=== PATIENT | female | born 1975 | race Caucasian/White ===

== ENCOUNTER 2016-09-28 13:56 | Emergency (ER) | payer OTHER ==
[2016-09-28] MEDS ORDERED: NORMAL SALINE 1000 ML 1,000 ML IV ONE (14:53)
[2016-09-28] MEDS ORDERED: ONDANSETRON HCL INJ/PF 4 MG/2 ML SDV IV ONE (14:54)
--- NOTE | 2016-09-28 14:58 | ER Document Report ---
ED Medical Screen (RME) - General Chief Complaint: Chest Pain Stated Complaint: CHEST PAIN Mode of Arrival: Wheelchair Information source: Patient Notes: Patient is a 40 year old female with a history of A-fib who presents to the ED with complaints of fatigue, dizziness, falls x2, decreased appetite and oral intake, nausea and blurred vision. Patient initially thought her symptoms were due to menopause but they are worsening. Patient is not on any blood thinners. Patient denies any vomiting or any new medication. Patient states she had surgery a couple months ago to remove her ovaries. Patient is also SOB. TRAVEL OUTSIDE OF THE [place] IN LAST 30 DAYS: No - Related Data Allergies/Adverse Reactions: aspirin [Aspirin] Allergy (Severe, Verified 09/28/16 14:16) throat closes morphine [Morphine] Allergy (Severe, Verified 09/28/16 14:16) heart races, cannot breath nitrofurantoin [From Macrobid] Allergy (Verified 09/28/16 14:45) meperidine HCl [From Demerol] Adverse Reaction (Intermediate, Verified 09/28/16 14:16) nausea, vomiting ibuprofen [Ibuprofen] Adverse Reaction (Mild, Verified 09/28/16 14:16) rash Penicillins Adverse Reaction (Mild, Verified 09/28/16 14:16) Hives flu vaccine Adverse Reaction (Intermediate, Uncoded 09/28/16 14:16) made really sick Past Medical History - General Information source: Patient - Social History Frequency of alcohol use: None Drug Abuse: None - Past Medical History Cardiac Medical History: Reports: Hx Atrial Fibrillation - Chronic, Hx Hypertension Denies: Hx Coronary Artery Disease, Hx Heart Attack Pulmonary Medical History: Denies: Hx Asthma, Hx Bronchitis, Hx COPD, Hx Pneumonia Neurological Medical History: Denies: Hx Cerebrovascular Accident, Hx Seizures Endocrine Medical History: Reports: Hx Diabetes Mellitus Type 2 - diet controlled Renal/ Medical History: Denies: Hx Peritoneal Dialysis Musculoskeltal Medical History: Reports Hx Arthritis - Bilateral knees Past Surgical History: Reports: Hx Dilation and Curettage, Hx Hysterectomy - PARTIAL, Hx Oral Surgery - wisdom teeth, Hx Orthopedic Surgery - left elbow and wrist. Denies: Hx Pacemaker - Immunizations Hx Diphtheria, Pertussis, Tetanus Vaccination: Yes Review of Systems - Review of Systems Constitutional: See HPI, Malaise EENT: See HPI, Blurred vision Cardiovascular: See HPI, Dizziness Respiratory: See HPI, Short of breath Gastrointestinal: See HPI, Nausea, Poor appetite, Poor fluid intake. denies: Vomiting Genitourinary: No symptoms reported Female Genitourinary: No symptoms reported Musculoskeletal: No symptoms reported Skin: No symptoms reported Hematologic/Lymphatic: No symptoms reported Neurological/Psychological: No symptoms reported Physical Exam - Vital signs Vitals: Temp Pulse Resp BP Pulse Ox 98.6 F 96 20 128/79 H 100 09/28/16 14:16 09/28/16 14:16 09/28/16 14:16 09/28/16 14:16 09/28/16 14:16 - General In distress: None - HEENT Mucous membranes: Dry - Respiratory Respiratory status: No respiratory distress Breath sounds: Normal - Cardiovascular Rhythm: Irregularly irregular Heart sounds: Normal auscultation Murmur: No - Neurological Neuro grossly intact: Yes Course - Vital Signs Vital signs: Temp Pulse Resp BP Pulse Ox 98.6 F 96 20 128/79 H 100 09/28/16 14:16 09/28/16 14:16 09/28/16 14:16 09/28/16 14:16 09/28/16 14:16 Scribe Documentation - Scribe Written by Scribe:: lucille Todd, 09/28/2016, [id number] acting as scribe for :: John
[2016-09-28 15:39] LABS: ABSOLUTE BASOPHILS # (AUTO) 0.1 10^3/uL (0.0-0.2); ABSOLUTE EOSINOPHILS # (AUTO) 0.2 10^3/uL (0.0-0.6); ABSOLUTE LYMPHOCYTES (AUTO) 1.7 10^3/uL (0.5-4.7); ABSOLUTE MONOCYTES (AUTO) 0.7 10^3/uL (0.1-1.4); ABSOLUTE NEUT (AUTO) 5.3 10^3/uL (1.7-8.2); BASOPHILS % (AUTO) 1.2 % (0-2); EOSINOPHILS % (AUTO) 2.3 % (0-6); HEMATOCRIT 42.7 % (36.0-47.0); HEMOGLOBIN 14.3 g/dL (12.0-15.5); HGB HCT DIFFERENCE 0.2; LYMPHOCYTES % (AUTO) 21.3 % (13-45); MEAN CORPUSCULAR HEMOGLOBIN 28.8 pg (27.0-33.4); MEAN CORPUSCULAR HGB CONC 33.4 g/dL (32.0-36.0); MEAN CORPUSCULAR VOLUME 86 fl (80-97); MONOCYTES % (AUTO) 8.6 % (3-13); RED BLOOD COUNT 4.96 10^6/uL (3.72-5.28); RED CELL DISTRIBUTION WIDTH 13.9 % (11.5-14.0); SEGMENTED NEUTROPHILS % (AUTO) 66.6 % (42-78)
[2016-09-28 15:40] LABS: AMORPHOUS SEDIMENT,URINE TRACE /HPF; APPEARANCE,URINE CLOUDY; BILIRUBIN,URINE NEGATIVE (NEGATIVE); GLUCOSE, URINE NEGATIVE (NEGATIVE); KETONES,URINE NEGATIVE (NEGATIVE); LEUKOCYTE ESTERASE,URINE NEGATIVE (NEGATIVE); NITRITE,URINE NEGATIVE (NEGATIVE); PROTEIN,URINE NEGATIVE (NEGATIVE); URINE SPECIFIC GRAVITY 1.014; UROBILINOGEN,URINE NEGATIVE mg/dL (<2.0)
[2016-09-28 16:00] LABS: ALANINE AMINOTRANSFERASE 51 U/L (9-52); ALBUMIN 4.4 g/dL (3.5-5.0); ALKALINE PHOSPHATASE 96 U/L (38-126); ANION GAP 11 (5-19); ASPARTATE AMINO TRANSFERASE 35 U/L (14-36); BILIRUBIN,DIRECT 0.3 mg/dL (0.0-0.4); BILIRUBIN,TOTAL 0.6 mg/dL (0.2-1.3); BLOOD UREA NITROGEN 12 mg/dL (7-20); CALCIUM 9.7 mg/dL (8.4-10.2); CARBON DIOXIDE 30 mmol/L (22-30); CHLORIDE 102 mmol/L (98-107); CREATININE RESULT 0.86 mg/dL (0.52-1.25); GLUCOSE 90 mg/dL (75-110); MAGNESIUM 2.3 mg/dL (1.6-2.3); POTASSIUM 3.9 mmol/L (3.6-5.0); SODIUM 143.3 mmol/L (137-145); TOTAL PROTEIN 7.5 g/dL (6.3-8.2)
--- NOTE | 2016-09-28 16:33 | RADIOLOGY REPORT (SQ) ---
EXAM DESCRIPTION: CHEST PA/LAT COMPLETED DATE/TIME: 09/28/2016 4:14 pm REASON FOR STUDY: Dyspnea COMPARISON: 03/17/2014 EXAM PARAMETERS: NUMBER OF VIEWS: two views TECHNIQUE: Digital Frontal and Lateral radiographic views of the chest acquired. RADIATION DOSE: NA LIMITATIONS: none FINDINGS: LUNGS AND PLEURA: No opacities, masses or pneumothorax. No pleural effusion. MEDIASTINUM AND HILAR STRUCTURES: No masses or contour abnormalities. HEART AND VASCULAR STRUCTURES: Heart normal size. No evidence for failure. BONES: No acute findings. HARDWARE: None in the chest. OTHER: No other significant finding. IMPRESSION: NO SIGNIFICANT RADIOGRAPHIC FINDING IN THE CHEST. TECHNICAL DOCUMENTATION: JOB ID: [id number] [employer]- All Rights Reserved
--- NOTE | 2016-09-28 17:10 | ER Document Report ---
ED General - General Mode of Arrival: Wheelchair Information source: Patient TRAVEL OUTSIDE OF THE [place] IN LAST 30 DAYS: No <MONROE EVERETT - Last Filed: 09/28/16 18:40> <REECE RODRIGUEZ - Last Filed: 09/29/16 00:49> - General Chief Complaint: Chest Pain Stated Complaint: CHEST PAIN Time Seen by Provider: 09/28/16 14:51 Notes: Patient is a 40-year-old female who presented to the emergency department today with complaints of dizziness with associated syncope x2 yesterday. Patient states she "hit the floor" twice yesterday, both times when standing up. Patient states she has been sleeping for nearly 1 week. Patient states she feels like her heart is racing, she has mild nausea, and a headache. Patient mentions that 1.5 months ago she had both ovaries removed secondary to "cyst and tumors all over them". Patient states she does not know if these were malignant in nature. Patient denies a history of clotting disorders, cough, congestion, abdominal pain, or hitting her head during these syncopal events. ( MONROE EVERETT) - Related Data Allergies/Adverse Reactions: aspirin [Aspirin] Allergy (Severe, Verified 09/28/16 14:16) throat closes morphine [Morphine] Allergy (Severe, Verified 09/28/16 14:16) heart races, cannot breath nitrofurantoin [From Macrobid] Allergy (Verified 09/28/16 14:45) meperidine HCl [From Demerol] Adverse Reaction (Intermediate, Verified 09/28/16 14:16) nausea, vomiting ibuprofen [Ibuprofen] Adverse Reaction (Mild, Verified 09/28/16 14:16) rash Penicillins Adverse Reaction (Mild, Verified 09/28/16 14:16) Hives flu vaccine Adverse Reaction (Intermediate, Uncoded 09/28/16 14:16) made really sick Past Medical History - General Information source: Patient - Social History Smoking Status: Never Smoker Cigarette use (# per day): No Frequency of alcohol use: None Drug Abuse: None Family History: Reviewed & Not Pertinent Patient has suicidal ideation: No Patient has homicidal ideation: No - Past Medical History Cardiac Medical History: Reports: Hx Atrial Fibrillation - Chronic, Hx Hypertension Endocrine Medical History: Reports: Hx Diabetes Mellitus Type 2 - diet controlled Musculoskeltal Medical History: Reports Hx Arthritis - Bilateral knees Past Surgical History: Reports: Hx Dilation and Curettage, Hx Hysterectomy - PARTIAL, Hx Oral Surgery - wisdom teeth, Hx Orthopedic Surgery - left elbow and wrist. Denies: Hx Pacemaker - Immunizations Hx Diphtheria, Pertussis, Tetanus Vaccination: Yes <MONROE EVERETT - Last Filed: 09/28/16 18:40> Review of Systems - Review of Systems Constitutional: No symptoms reported EENT: denies: Nose congestion Cardiovascular: See HPI, Heart racing, Syncope, Dizziness Respiratory: See HPI, Short of breath. denies: Cough Gastrointestinal: See HPI, Nausea. denies: Abdominal pain Genitourinary: No symptoms reported Female Genitourinary: No symptoms reported Musculoskeletal: No symptoms reported Skin: No symptoms reported Hematologic/Lymphatic: No symptoms reported Neurological/Psychological: See HPI, Headaches -: Yes All other systems reviewed and negative <MONROE EVERETT - Last Filed: 09/28/16 18:40> Physical Exam - Vital signs Interpretation: Normal - General General appearance: Appears well, Alert - HEENT Head: Normocephalic, Atraumatic Eyes: Normal Pupils: PERRL - Respiratory Respiratory status: No respiratory distress Chest status: Nontender Breath sounds: Normal Chest palpation: Normal - Cardiovascular Rhythm: Regular Heart sounds: Normal auscultation Murmur: No - Abdominal Inspection: Normal Distension: No distension Bowel sounds: Normal Tenderness: Nontender Organomegaly: No organomegaly - Back Back: Normal, Nontender - Extremities General upper extremity: Normal inspection, Nontender, Normal color, Normal ROM , Normal temperature General lower extremity: Normal inspection, Nontender, Normal color, Normal ROM , Normal temperature, Normal weight bearing. No: Lucy's sign - Neurological Neuro grossly intact: Yes Cognition: Normal Orientation: AAOx4 [place] Coma Scale Eye Opening: Spontaneous [place] Coma Scale Verbal: Oriented [place] Coma Scale Motor: Obeys Commands [place] Coma Scale Total: 15 Speech: Normal Motor strength normal: LUE, RUE, LLE, RLE Sensory: Normal - Psychological Associated symptoms: Normal affect, Normal mood - Skin Skin Temperature: Warm Skin Moisture: Dry Skin Color: Normal <REECE RODRIGUEZ - Last Filed: 09/29/16 00:49> - Vital signs Vitals: Temp Pulse Resp BP Pulse Ox 98.6 F 96 20 128/79 H 100 09/28/16 14:16 09/28/16 14:16 09/28/16 14:16 09/28/16 14:16 09/28/16 14:16 Course - Laboratory Result Diagrams: 09/28/16 15:10 09/28/16 15:10 <MONROE EVERETT - Last Filed: 09/28/16 18:40> - Laboratory Result Diagrams: 09/28/16 15:10 09/28/16 15:10 - Diagnostic Test Radiology reviewed: Reports reviewed <REECE RODRIGUEZ - Last Filed: 09/29/16 00:49> - Re-evaluation Re-evalutation: 09/28/16 19:57 Patient no acute findings on blood work and physical exam. Feels better after fluids and meclizine. Patient is due continue to take p.o. at home. She is to take Antivert 3 times a day. She is to follow-up with her doctor and discuss probable early menopause due to recent oophrectomy. Stable for discharge. Return if any worsening or concerning symptoms. Understands and agrees with plan. (REECE RODRIGUEZ) - Vital Signs Vital signs: Temp Pulse Resp BP Pulse Ox 97.8 F 88 20 128/65 H 98 09/28/16 21:12 09/28/16 21:12 09/28/16 21:12 09/28/16 21:12 09/28/16 21:12 Discharge <MONROE EVERETT - Last Filed: 09/28/16 18:40> <REECE RODRIGUEZ - Last Filed: 09/29/16 00:49> - Discharge Clinical Impression: Vertigo, Near syncope Condition: Stable Disposition: HOME, SELF-CARE Instructions: Vertigo ([facility]), Near Syncopal Episode ([facility]) Additional Instructions: Please follow-up with your [facility]. Please make sure you are drinking plenty of fluids. Please take meclizine 3 times a day for the next 3 days. Prescriptions: Meclizine HCl [Antivert 12.5 mg Tablet] 12.5 mg PO TID #20 tab Scribe Attestation: 09/29/16 00:49 I personally performed the services described in the documentation, reviewed and edited the documentation which was dictated to the scribe in my presence, and it accurately records my words and actions. (REECE RODRIGUEZ) Scribe Documentation - Scribe Written by Aishwarya:: Aishwarya Forbes, 09/28/2016 1919 acting as scribe for :: Edith <MONROE EVERETT - Last Filed: 09/28/16 18:40>
[2016-09-28] MEDS ORDERED: METOCLOPRAMIDE HCL INJ/PF 10 MG/2 ML SDV IV ONE (17:13)
[2016-09-28] MEDS ORDERED: MECLIZINE HCL 25 MG TABLET PO ONE (17:13)
[2016-09-28 21:14] VITALS: BP 128/65
--- NOTE | 2016-09-28 22:52 | EKG REPORT ---
SEVERITY:- ABNORMAL ECG - ATRIAL FIBRILLATION, V-RATE 65-132 BORDERLINE T ABNORMALITIES, ANTERIOR LEADS : Confirmed by: Lise Carl 28-Sep-2016 22:51:21
== END 2016-09-28 21:11 | disposition home or self-care (01) ==
LOC: ER 13:56
DX: R42 Dizziness and giddiness (principal); R55 Syncope and collapse; R07.9 Chest pain, unspecified; R11.0 Nausea; R51 Headache; I48.91 Unspecified atrial fibrillation; I10 Essential (primary) hypertension; E11.9 Type 2 diabetes mellitus without complications; Z88.6 Allergy status to analgesic agent; Z88.0 Allergy status to penicillin; Z88.7 Allergy status to serum and vaccine
CPT/HCPCS: 93005; 99285; 96361; 96374; 96375; 36415; 83735; 84443; 85025; 80053; 81001; 84484; 71020; 93010; J2765; J2405; J7030

== ENCOUNTER 2017-01-05 14:37 | Emergency (ER) | payer OTHER ==
[2017-01-05] MEDS ORDERED: DIPHENHYDRAMINE HCL 50 MG/ML VIAL IV ONE (15:05)
[2017-01-05] MEDS ORDERED: METHYLPREDNISOLONE INJ 125 MG/2 ML SDV IV ONE (15:05)
--- NOTE | 2017-01-05 15:07 | ER Document Report ---
ED Medical Screen (RME) - General Chief Complaint: Allergic Reaction Stated Complaint: POSSIBLE ALLERGIC REACTION Time Seen by Provider: 01/05/17 15:04 Mode of Arrival: Ambulatory Information source: Patient Notes: Patient reports approximate 930 this morning she had some pumpkin seeds. She then reports that she now feels that her bottom lip is swollen her tongue is swollen and she has trouble swallowing. No trouble breathing. She states she has had some similar reactions from other substances. He states she has never had pump and sees before. She states she took Benadryl but she feels like the symptoms have not improved. TRAVEL OUTSIDE OF THE [place] IN LAST 30 DAYS: No - Related Data Allergies/Adverse Reactions: aspirin [Aspirin] Allergy (Severe, Verified 01/05/17 14:44) throat closes morphine [Morphine] Allergy (Severe, Verified 01/05/17 14:44) heart races, cannot breath nitrofurantoin [From Macrobid] Allergy (Verified 01/05/17 14:44) meperidine HCl [From Demerol] Adverse Reaction (Intermediate, Verified 01/05/17 14:44) nausea, vomiting ibuprofen [Ibuprofen] Adverse Reaction (Mild, Verified 01/05/17 14:44) rash Penicillins Adverse Reaction (Mild, Verified 01/05/17 14:44) Hives flu vaccine Adverse Reaction (Intermediate, Uncoded 09/28/16 14:16) made really sick Past Medical History - Past Medical History Cardiac Medical History: Reports: Hx Atrial Fibrillation - Chronic, Hx Hypertension Denies: Hx Coronary Artery Disease, Hx Heart Attack Pulmonary Medical History: Denies: Hx Asthma, Hx Bronchitis, Hx COPD, Hx Pneumonia Neurological Medical History: Denies: Hx Cerebrovascular Accident, Hx Seizures Endocrine Medical History: Reports: Hx Diabetes Mellitus Type 2 - diet controlled Renal/ Medical History: Denies: Hx Peritoneal Dialysis Musculoskeltal Medical History: Reports Hx Arthritis - Bilateral knees Past Surgical History: Reports: Hx Dilation and Curettage, Hx Hysterectomy, Hx Oral Surgery - wisdom teeth, Hx Orthopedic Surgery - left elbow and wrist. Denies: Hx Pacemaker - Immunizations Hx Diphtheria, Pertussis, Tetanus Vaccination: Yes Physical Exam - Vital signs Vitals: Temp Pulse BP Pulse Ox 98.6 F 88 121/96 H 97 01/05/17 14:43 01/05/17 14:43 01/05/17 14:43 01/05/17 14:43 Course - Vital Signs Vital signs: Temp Pulse Resp BP Pulse Ox 98.6 F 88 121/96 H 97 01/05/17 14:43 01/05/17 14:43 01/05/17 14:43 01/05/17 14:43
[2017-01-05] MEDS ORDERED: LORAZEPAM INJ 2 MG/1 ML VIAL IV ONE (16:02)
--- NOTE | 2017-01-05 16:04 | ER Document Report ---
ED Allergic Reaction - General Chief Complaint: Allergic Reaction Stated Complaint: POSSIBLE ALLERGIC REACTION Time Seen by Provider: 01/05/17 15:04 Mode of Arrival: Ambulatory Information source: Patient Notes: Patient states that around 930 this morning she ate a handful of pumpkin seeds and then about 15 minutes later started to have throat discomfort, tongue swelling and painful lips. Patient states she did take some Benadryl at home. Patient denies any respiratory symptoms. Patient states that she feels like her symptoms have stabilized all the have not completely resolved. TRAVEL OUTSIDE OF THE [place] IN LAST 30 DAYS: No - HPI Onset: This morning Onset/Duration: Sudden Quality of pain: Burning Pain Level: 4 Food exposure: Pumpkin seeds Swelling: Lip(s), Tongue Associated symptoms: Other - Patient felt anxious when symptoms started Similar symptoms previously: Yes - Food allergies Recently seen / treated by doctor: No - Related Data Allergies/Adverse Reactions: aspirin [Aspirin] Allergy (Severe, Verified 01/05/17 14:44) throat closes morphine [Morphine] Allergy (Severe, Verified 01/05/17 14:44) heart races, cannot breath nitrofurantoin [From Macrobid] Allergy (Verified 01/05/17 14:44) meperidine HCl [From Demerol] Adverse Reaction (Intermediate, Verified 01/05/17 14:44) nausea, vomiting ibuprofen [Ibuprofen] Adverse Reaction (Mild, Verified 01/05/17 14:44) rash Penicillins Adverse Reaction (Mild, Verified 01/05/17 14:44) Hives flu vaccine Adverse Reaction (Intermediate, Uncoded 09/28/16 14:16) made really sick Past Medical History - General Information source: Patient - Social History Smoking Status: Never Smoker Frequency of alcohol use: None Drug Abuse: None Occupation: [employer] Lives with: Family Family History: Reviewed & Not Pertinent - Past Medical History Cardiac Medical History: Reports: Hx Atrial Fibrillation - Chronic, Hx Hypertension Denies: Hx Coronary Artery Disease, Hx Heart Attack Pulmonary Medical History: Denies: Hx Asthma, Hx Bronchitis, Hx COPD, Hx Pneumonia Neurological Medical History: Denies: Hx Cerebrovascular Accident, Hx Seizures Endocrine Medical History: Reports: Hx Diabetes Mellitus Type 2 - diet controlled Renal/ Medical History: Denies: Hx Peritoneal Dialysis Musculoskeltal Medical History: Reports Hx Arthritis - Bilateral knees Past Surgical History: Reports: Hx Dilation and Curettage, Hx Hysterectomy, Hx Oral Surgery - wisdom teeth, Hx Orthopedic Surgery - left elbow and wrist. Denies: Hx Pacemaker - Immunizations Hx Diphtheria, Pertussis, Tetanus Vaccination: Yes Review of Systems - Review of Systems Constitutional: No symptoms reported. denies: Fever, Recent illness EENT: Other - Tongue swelling, lip pain Cardiovascular: No symptoms reported Respiratory: No symptoms reported. denies: Cough, Short of breath Gastrointestinal: No symptoms reported. denies: Nausea, Vomiting Genitourinary: No symptoms reported Female Genitourinary: No symptoms reported Musculoskeletal: No symptoms reported Skin: No symptoms reported Hematologic/Lymphatic: No symptoms reported Neurological/Psychological: Anxiety Physical Exam - Vital signs Vitals: Temp Pulse BP Pulse Ox 98.6 F 88 121/96 H 97 01/05/17 14:43 01/05/17 14:43 01/05/17 14:43 01/05/17 14:43 - General General appearance: Appears well, Alert, Anxious In distress: None - HEENT Head: Normocephalic, Atraumatic Eyes: Normal Nasal: Normal Mouth/Lips: Normal. No: Angioedema Mucous membranes: Dry - lips Pharynx: Normal. No: Erythema, Exudate, Uvular edema, Potential airway comprom. Neck: Normal, Supple. No: Lymphadenopathy - Respiratory Respiratory status: No respiratory distress Chest status: Nontender Breath sounds: Normal. No: Rales, Rhonchi, Stridor, Wheezing Chest palpation: Normal - Cardiovascular Rhythm: Regular Heart sounds: S1 appreciated, S2 appreciated Murmur: No - Back Back: Normal, Nontender - Extremities General upper extremity: Normal inspection, Normal ROM. No: Edema General lower extremity: Normal inspection, Normal ROM. No: Edema - Neurological Neuro grossly intact: Yes Cognition: Normal Ken Coma Scale Eye Opening: Spontaneous [place] Coma Scale Verbal: Oriented [place] Coma Scale Motor: Obeys Commands [place] Coma Scale Total: 15 - Psychological Associated symptoms: Anxious - Skin Skin Temperature: Warm Skin Moisture: Dry Skin Color: Normal Course - Re-evaluation Re-evalutation: 01/05/17 16:10 Patient with no objective signs of angioedema or potential airway compromise. Patient managing her oral secretions and speaking clearly. 01/05/17 17:13 Patient complains of left-sided sore throat with mild headache and is requesting medicine. Patient without any objective signs of angioedema or airway swelling. 01/05/17 17:[address] Morrissey regarding patient presentation and exam findings. Agrees with plan for discharge at this time. - Vital Signs Vital signs: Temp Pulse Resp BP Pulse Ox 98.2 F 85 117/81 95 01/05/17 17:54 01/05/17 17:54 01/05/17 17:54 01/05/17 17:54 Discharge - Discharge Clinical Impression: Allergic reaction Qualifiers: Encounter type: initial encounter Qualified Code(s): T78.40XA - Allergy, unspecified, initial encounter Condition: Stable Disposition: HOME, SELF-CARE Instructions: Use of Diphenhydramine, Food Allergy ([facility]), Steroid Medication Additional Instructions: Return immediately for any new or worsening symptoms Followup with your primary care provider, call tomorrow to make a followup appointment Avoid pumpkin seeds and all things pumpkin in the future Take Benadryl [id number] every 6 hours to help with her symptoms Take your ranitidine as prescribed to help with her symptoms as well. Prescriptions: Prednisone [Deltasone 20 mg Tablet] 3 tab PO DAILY 4 Days tablet Referrals: JUSTEN PHOENIX PA-C [NO LOCAL MD] - Follow up tomorrow
[2017-01-05] MEDS ORDERED: ACETAMINOPHEN 325 MG TABLET PO ONE (17:13)
[2017-01-05 18:05] VITALS: BP 117/81
== END 2017-01-05 18:00 | disposition home or self-care (01) ==
LOC: ER 14:37
DX: T78.40XA Allergy, unspecified, initial encounter (principal); R09.89 Other specified symptoms and signs involving the circulatory and respiratory systems; R22.0 Localized swelling, mass and lump, head; R19.8 Other specified symptoms and signs involving the digestive system and abdomen; X58.XXXA Exposure to other specified factors, initial encounter; J02.9 Acute pharyngitis, unspecified; R51 Headache; E11.9 Type 2 diabetes mellitus without complications; I10 Essential (primary) hypertension; Z88.6 Allergy status to analgesic agent; Z88.5 Allergy status to narcotic agent; Z88.1 Allergy status to other antibiotic agents
CPT/HCPCS: 99283; 96374; 96375; J1200; J2930

== ENCOUNTER 2017-04-27 18:01 | Emergency (ER) | payer OTHER ==
--- NOTE | 2017-04-27 18:39 | ER Document Report ---
ED Medical Screen (RME) - General Chief Complaint: Dizziness Stated Complaint: DIZZINESS Time Seen by Provider: 04/27/17 18:18 TRAVEL OUTSIDE OF THE [place] IN LAST 30 DAYS: No - HPI Notes: 04/27/17 18:30 Patient is a 41-year-old female with a history of type 2 diabetes, A. fib, chronic sciatica right side, and obesity who presents to the ED complaining of an episode of feeling her heart race, dizziness, and nausea/vomiting. Patient had a cardiac ablation 3 weeks ago and was taken off of her blood thinners 4 days ago. Patient states that she has not had any issues since her ablation. Patient states that she usually has help when she tries to get up from a seated position due to the sciatic pain, but she did not have any help so she tried to do it on her own. Patient states that when she did she developed a very sharp pain that traveled down to her foot which is the same pathway as her typical sciatica. Patient states that she sat back down and then began to have palpitations with nausea. Patient states that she ran to the bathroom and threw up. Patient states that since then she has felt some shortness of breath and has continued nausea and feeling of fast heartbeat. Patient also states that she had a very stressful day at work and may have component of anxiety. Denies any headache, fever, neck pain, URI, sore throat, chest pain, syncope, cough, wheeze, dyspnea, abdominal pain, nausea/vomiting/diarrhea, urinary retention, dysuria, hematuria, loss of control of bowel or bladder, numbness/ tingling, saddle anesthesia, muscle paralysis/weakness, or rash. No prev ID, DVT, or PE. Non-smoker. no IV drug use. No hormone replacement, prolonged travel, or CA. I have treated and performed a rapid initial assessment of this patient. A comprehensive ED assessment and evaluation of the patient, analysis of test results and completion of medical decision making process will be conducted by additional ED providers. PHYSICAL EXAMINATION: GENERAL: Well-appearing, well-nourished and in no acute distress. A&Ox4. Answers questions appropriately. LUNGS: Breath sounds clear to auscultation bilaterally and equal. No wheezes rales or rhonchi. HEART: Regular rate and rhythm without murmurs, rubs, gallops. HR 96 on exam. Extremities: No cyanosis, clubbing, or edema b/l. Calves soft, non-tender b/l NEUROLOGICAL: Normal speech, normal gait. PSYCH: anxious - Related Data Allergies/Adverse Reactions: aspirin [Aspirin] Allergy (Severe, Verified 04/27/17 18:19) throat closes morphine [Morphine] Allergy (Severe, Verified 04/27/17 18:19) heart races, cannot breath nitrofurantoin [From Macrobid] Allergy (Verified 04/27/17 18:19) meperidine HCl [From Demerol] Adverse Reaction (Intermediate, Verified 04/27/17 18:19) nausea, vomiting ibuprofen [Ibuprofen] Adverse Reaction (Mild, Verified 04/27/17 18:19) rash Penicillins Adverse Reaction (Mild, Verified 04/27/17 18:19) Hives flu vaccine Adverse Reaction (Intermediate, Uncoded 04/27/17 18:19) made really sick Past Medical History - Social History Chew tobacco use (# tins/day): No Frequency of alcohol use: None Drug Abuse: None - Past Medical History Cardiac Medical History: Reports: Hx Atrial Fibrillation - Chronic, Hx Hypertension Denies: Hx Coronary Artery Disease, Hx Heart Attack Pulmonary Medical History: Denies: Hx Asthma, Hx Bronchitis, Hx COPD, Hx Pneumonia Neurological Medical History: Denies: Hx Cerebrovascular Accident, Hx Seizures Endocrine Medical History: Reports: Hx Diabetes Mellitus Type 2 - diet controlled Renal/ Medical History: Denies: Hx Peritoneal Dialysis Musculoskeltal Medical History: Reports Hx Arthritis - Bilateral knees Past Surgical History: Reports: Hx Dilation and Curettage, Hx Hysterectomy, Hx Oral Surgery - wisdom teeth, Hx Orthopedic Surgery - left elbow and wrist. Denies: Hx Pacemaker - Immunizations Hx Diphtheria, Pertussis, Tetanus Vaccination: Yes Physical Exam - Vital signs Vitals: Temp Pulse Resp BP Pulse Ox 98.8 F 95 16 133/84 H 97 04/27/17 18:14 04/27/17 18:14 04/27/17 18:14 04/27/17 18:14 04/27/17 18:14 Course - Vital Signs Vital signs: Temp Pulse Resp BP Pulse Ox 98.8 F 95 16 133/84 H 97 04/27/17 18:14 04/27/17 18:14 04/27/17 18:14 04/27/17 18:14 04/27/17 18:14
--- NOTE | 2017-04-27 19:04 | RADIOLOGY REPORT (SQ) ---
EXAM DESCRIPTION: CHEST PA/LAT COMPLETED DATE/TIME: 04/27/2017 6:57 pm REASON FOR STUDY: sob COMPARISON: 09/28/2016 NUMBER OF VIEWS: Two view. TECHNIQUE: Frontal and lateral radiographic views of the chest acquired. LIMITATIONS: None. FINDINGS: LUNGS AND PLEURA: No opacities, masses or pneumothorax. No pleural effusion. MEDIASTINUM AND HILAR STRUCTURES: No masses or contour abnormalities. HEART AND VASCULATURE: Heart normal size. No evidence for failure. BONY STRUCTURES: No acute findings. HARDWARE: None. OTHER: No other significant finding. IMPRESSION: NO SIGNIFICANT RADIOGRAPHIC FINDING IN THE CHEST. TECHNICAL DOCUMENTATION: JOB ID: [id number]- All Rights Reserved
[2017-04-27 19:13] LABS: ABSOLUTE BASOPHILS # (AUTO) 0.1 10^3/uL (0.0-0.2); ABSOLUTE EOSINOPHILS # (AUTO) 0.1 10^3/uL (0.0-0.6); ABSOLUTE LYMPHOCYTES (AUTO) 1.4 10^3/uL (0.5-4.7); ABSOLUTE MONOCYTES (AUTO) 0.6 10^3/uL (0.1-1.4); EOSINOPHILS % (AUTO) 1.8 % (0-6); HEMATOCRIT 38.8 % (36.0-47.0); HEMOGLOBIN 13.3 g/dL (12.0-15.5); LYMPHOCYTES % (AUTO) 16.7 % (13-45); MEAN CORPUSCULAR HEMOGLOBIN 29.6 pg (27.0-33.4); MEAN CORPUSCULAR HGB CONC 34.3 g/dL (32.0-36.0); MEAN CORPUSCULAR VOLUME 86 fl (80-97); MONOCYTES % (AUTO) 7.1 % (3-13); PLATELET COUNT 212 10^3/uL (150-450); RED BLOOD COUNT 4.51 10^6/uL (3.72-5.28); RED CELL DISTRIBUTION WIDTH 13.6 % (11.5-14.0); SEGMENTED NEUTROPHILS % (AUTO) 73.4 % (42-78); TOTAL CELLS COUNTED % (AUTO) 100 %; WHITE BLOOD COUNT 8.2 10^3/uL (4.0-10.5)
[2017-04-27 19:31] LABS: ALANINE AMINOTRANSFERASE 55 U/L (9-52); ALBUMIN 4.7 g/dL (3.5-5.0); ALKALINE PHOSPHATASE 76 U/L (38-126); ANION GAP 10 (5-19); ASPARTATE AMINO TRANSFERASE 37 U/L (14-36); BILIRUBIN,DIRECT 0.1 mg/dL (0.0-0.4); BILIRUBIN,TOTAL 0.5 mg/dL (0.2-1.3); BLOOD UREA NITROGEN 12 mg/dL (7-20); CALCIUM 9.8 mg/dL (8.4-10.2); CARBON DIOXIDE 30 mmol/L (22-30); CHLORIDE 100 mmol/L (98-107); GLUCOSE 107 mg/dL (75-110); POTASSIUM 3.5 mmol/L (3.6-5.0); SODIUM 140.3 mmol/L (137-145); TOTAL PROTEIN 7.1 g/dL (6.3-8.2)
[2017-04-27] MEDS ORDERED: ONDANSETRON HCL INJ/PF 4 MG/2 ML SDV IV ONE (20:04)
[2017-04-27] MEDS ORDERED: HYDROMORPHONE HCL INJ/PF 2 MG/ML AMPULE IV ONE (20:23)
--- NOTE | 2017-04-27 21:14 | ER Document Report ---
ED General - General Chief Complaint: Dizziness Stated Complaint: DIZZINESS Time Seen by Provider: 04/27/17 18:18 Mode of Arrival: Ambulatory Information source: Patient Notes: 41 yr old female hx of sciatica presents with complaints of sudden sharp pain radiating the right buttocks to her back causing her nausea and vomiting as well as dizziness. Patient noted the pain radiated all throughout her body including her chest, however she denies any actual chest pain. Patient has a history of sciatic pain and receives injections for it but has not received an injection recently is supposed to have one in a few weeks TRAVEL OUTSIDE OF THE [place] IN LAST 30 DAYS: No - HPI Onset: Just prior to arrival Onset/Duration: Sudden Quality of pain: Sharp, Stabbing Severity: Moderate Pain Level: 2 Associated symptoms: Nausea, Vomiting Exacerbated by: Movement, Walking Relieved by: Denies Similar symptoms previously: Yes Recently seen / treated by doctor: Yes - Related Data Allergies/Adverse Reactions: aspirin [Aspirin] Allergy (Severe, Verified 18 18:19) throat closes morphine [Morphine] Allergy (Severe, Verified 04/27/17 18:19) heart races, cannot breath nitrofurantoin [From Macrobid] Allergy (Verified 04/27/17 18:19) meperidine HCl [From Demerol] Adverse Reaction (Intermediate, Verified 04/27/17 18:19) nausea, vomiting ibuprofen [Ibuprofen] Adverse Reaction (Mild, Verified 18 18:19) rash Penicillins Adverse Reaction (Mild, Verified 18 18:19) Hives flu vaccine Adverse Reaction (Intermediate, Uncoded 04/27/17 18:19) made really sick Past Medical History - Social History Smoking Status: Never Smoker Cigarette use (# per day): No Chew tobacco use (# tins/day): No Smoking Education Provided: No Frequency of alcohol use: None Drug Abuse: None Family History: Reviewed & Not Pertinent Patient has suicidal ideation: No Patient has homicidal ideation: No - Past Medical History Cardiac Medical History: Reports: Hx Atrial Fibrillation - Chronic, Hx Hypertension Denies: Hx Coronary Artery Disease, Hx Heart Attack Pulmonary Medical History: Denies: Hx Asthma, Hx Bronchitis, Hx COPD, Hx Pneumonia Neurological Medical History: Denies: Hx Cerebrovascular Accident, Hx Seizures Endocrine Medical History: Reports: Hx Diabetes Mellitus Type 2 - diet controlled Renal/ Medical History: Denies: Hx Peritoneal Dialysis Musculoskeltal Medical History: Reports Hx Arthritis - Bilateral knees Past Surgical History: Reports: Hx Dilation and Curettage, Hx Hysterectomy, Hx Oral Surgery - wisdom teeth, Hx Orthopedic Surgery - left elbow and wrist. Denies: Hx Pacemaker - Immunizations Hx Diphtheria, Pertussis, Tetanus Vaccination: Yes Review of Systems - Review of Systems Notes: REVIEW OF SYSTEMS: CONSTITUTIONAL : Denies fever, chills, or sweats. Denies recent illness. EENT: Denies eye, ear, throat, or mouth pain or symptoms. Denies nasal or sinus congestion or discharge. Denies throat, tongue, or mouth swelling or difficulty swallowing. CARDIOVASCULAR: Denies chest pain. Denies palpitations or racing or irregular heart beat. Denies ankle edema. RESPIRATORY: Denies cough, cold, or chest congestion. Denies shortness of breath, difficulty breathing, or wheezing. GASTROINTESTINAL: Admits to nausea vomiting GENITOURINARY: Denies difficulty urinating, painful urination, burning, frequency, blood in urine, or discharge. FEMALE GENITOURINARY: Denies vaginal bleeding, heavy or abnormal periods, irregular periods. Denies vaginal discharge or odor. MUSCULOSKELETAL: Admits to right buttocks sciatic pain radiating to her back SKIN: Denies rash, lesions or sores. HEMATOLOGIC : Denies easy bruising or bleeding. LYMPHATIC: Denies swollen, enlarged glands. NEUROLOGICAL: Denies confusion or altered mental status. Denies passing out or loss of consciousness. Denies dizziness or lightheadedness. Denies headache. Denies weakness or paralysis or loss of use of either side. Denies problems with gait or speech. Denies sensory loss, numbness, or tingling. Denies seizures. PSYCHIATRIC: Denies anxiety or stress. Denies depression, suicidal ideation, or homicidal ideation. ALL OTHER SYSTEMS REVIEWED AND NEGATIVE. PHYSICAL EXAMINATION: GENERAL: Well-appearing, well-nourished and in no acute distress. HEAD: Atraumatic, normocephalic. EYES: Pupils equal round and reactive to light, extraocular movements intact, conjunctiva are normal. ENT: Nares patent, oropharynx clear without exudates. Moist mucous membranes. NECK: Normal range of motion, supple without lymphadenopathy LUNGS: Breath sounds clear to auscultation bilaterally and equal. No wheezes rales or rhonchi. HEART: Regular rate and rhythm without murmurs ABDOMEN: Soft, nontender, nondistended abdomen. No guarding, no rebound. No masses appreciated. Female : deferred Musculoskeletal: Normal range of motion, no pitting or edema. No cyanosis. Reproducible sciatic pain NEUROLOGICAL: Cranial nerves grossly intact. Normal speech, normal gait. Normal sensory, motor exams PSYCH: Normal mood, normal affect. SKIN: Warm, Dry, normal turgor, no rashes or lesions noted. Dictation was performed using [employer] voice recognition software Physical Exam - Vital signs Vitals: Temp Pulse Resp BP Pulse Ox 98.8 F 95 16 133/84 H 97 04/27/17 18:14 04/27/17 18:14 04/27/17 18:14 04/27/17 18:14 04/27/17 18:14 Course - Re-evaluation Re-evalutation: 04/27/17 23:47 Patient's presentation is consistent with sciatica, she notes when she has pain like this she gets nauseous and vomits. She has no fevers or chills cardiac enzymes are negative lab work otherwise was quite benign. Patient was given pain control nausea control notes symptoms have improved significantly. I will discharge home to follow-up with [facility] for her sciatic pain and injections After performing a Medical Screening Examination, I estimate there is LOW risk for RUPTURED ESOPHAGUS, PNEUMOTHORAX, PULMONARY EMBOLISM, ACUTE CORONARY SYNDROME, OR THORACIC AORTIC DISSECTION, thus I consider the discharge disposition reasonable. I have reevaluated this patient multiple times and no significant life threatening changes are noted. The patient and I have discussed the diagnosis and risks, and we agree with discharging home with close follow-up. We also discussed returning to the Emergency Department immediately if new or worsening symptoms occur. We have discussed the symptoms which are most concerning (e.g., bloody sputum, worsening pain or shortness of breath) that necessitate immediate return. - Vital Signs Vital signs: Temp Pulse Resp BP Pulse Ox 98.3 F 95 17 134/90 H 94 04/27/17 21:50 04/27/17 18:14 04/27/17 21:50 04/27/17 21:50 04/27/17 21:50 - Laboratory Result Diagrams: 04/27/17 19:00 04/27/17 19:00 Laboratory results interpreted by me: 04/27/17 19:00 Potassium 3.5 L AST 37 H ALT 55 H - EKG Interpretation by De EKG shows normal: Sinus rhythm, Intervals, QRS Complexes, ST-T Waves Discharge - Discharge Clinical Impression: Sciatic leg pain Nausea & vomiting Qualifiers: Vomiting type: unspecified Vomiting Intractability: non-intractable Qualified Code(s): R11.2 - Nausea with vomiting, unspecified Hypertension Qualifiers: Hypertension type: essential hypertension Qualified Code(s): I10 - Essential ( primary) hypertension Condition: Stable Disposition: HOME, SELF-CARE Instructions: Sciatica ([facility]) Prescriptions: Hydrocodone/Acetaminophen [Stinnett 5-325 mg Tablet] 1 tab PO Q6 #10 tablet Metoclopramide HCl [Reglan 10 mg Tablet] 1 - 2 tab PO Q6 #10 tablet Referrals: JUSTEN PHOENIX PA-C [Primary Care Provider] - Follow up tomorrow
[2017-04-27 21:25] LABS: CREATINE KINASE MB < 0.22 ng/mL (<4.55); TROPONIN I < 0.012 ng/mL
[2017-04-27 22:03] VITALS: BP 134/90
--- NOTE | 2017-04-28 09:39 | EKG REPORT ---
SEVERITY:- BORDERLINE ECG - SINUS RHYTHM BORDERLINE T ABNORMALITIES, DIFFUSE LEADS : Confirmed by: Lise Carl 28-Apr-2017 09:38:36
== END 2017-04-27 22:03 | disposition home or self-care (01) ==
LOC: ER 18:01
DX: M54.31 Sciatica, right side (principal); I10 Essential (primary) hypertension; E11.9 Type 2 diabetes mellitus without complications; R42 Dizziness and giddiness; R11.2 Nausea with vomiting, unspecified; Z88.6 Allergy status to analgesic agent; Z88.5 Allergy status to narcotic agent; Z88.1 Allergy status to other antibiotic agents
CPT/HCPCS: 93005; 99284; 96374; 96375; 36415; 82553; 82550; 85025; 80053; 84484; 71046; 93010; J1170; J2405

== ENCOUNTER 2017-09-04 21:28 | Emergency (ER) | payer OTHER ==
[2017-09-04 23:48] LABS: ABSOLUTE EOSINOPHILS # (AUTO) 0.2 10^3/uL (0.0-0.6); ABSOLUTE LYMPHOCYTES (AUTO) 2.2 10^3/uL (0.5-4.7); ABSOLUTE MONOCYTES (AUTO) 0.6 10^3/uL (0.1-1.4); BASOPHILS % (AUTO) 0.2 % (0-2); EOSINOPHILS % (AUTO) 3.1 % (0-6); HEMATOCRIT 39.4 % (36.0-47.0); HEMOGLOBIN 13.4 g/dL (12.0-15.5); LYMPHOCYTES % (AUTO) 31.1 % (13-45); MEAN CORPUSCULAR HEMOGLOBIN 28.6 pg (27.0-33.4); MEAN CORPUSCULAR HGB CONC 34.1 g/dL (32.0-36.0); MEAN CORPUSCULAR VOLUME 84 fl (80-97); PLATELET COUNT 294 10^3/uL (150-450); RED BLOOD COUNT 4.71 10^6/uL (3.72-5.28); RED CELL DISTRIBUTION WIDTH 13.5 % (11.5-14.0); SEGMENTED NEUTROPHILS % (AUTO) 56.6 % (42-78); TOTAL CELLS COUNTED % (AUTO) 100 %; WHITE BLOOD COUNT 7.1 10^3/uL (4.0-10.5)
--- NOTE | 2017-09-04 23:59 | RADIOLOGY REPORT (SQ) ---
EXAM DESCRIPTION: CLINICAL HISTORY: chest pain COMPARISON: EXAM DESCRIPTION: CLINICAL HISTORY: chest pain COMPARISON: 04/27/2017 FINDINGS: Two views of the chest are submitted. There is atelectasis at the left lateral lung base. Cardiac silhouette appears normal. No focal parenchymal or pleural disease. No acute bony abnormality. There is no significant pulmonary vascular engorgement. IMPRESSION: No evidence of acute cardiopulmonary disease. FINDINGS: Two views of the chest are submitted. Cardiac silhouette appears normal. No focal parenchymal or pleural disease. No acute bony abnormality. There is no significant pulmonary vascular engorgement.
[2017-09-05 00:11] LABS: ALANINE AMINOTRANSFERASE 29 U/L (9-52); ALBUMIN 4.3 g/dL (3.5-5.0); ALKALINE PHOSPHATASE 88 U/L (38-126); ANION GAP 9 (5-19); ASPARTATE AMINO TRANSFERASE 27 U/L (14-36); BILIRUBIN,DIRECT 0.3 mg/dL (0.0-0.4); BILIRUBIN,TOTAL 0.5 mg/dL (0.2-1.3); BLOOD UREA NITROGEN 15 mg/dL (7-20); CALCIUM 9.2 mg/dL (8.4-10.2); CARBON DIOXIDE 28 mmol/L (22-30); CHLORIDE 105 mmol/L (98-107); CREATINE KINASE 40 U/L (30-135); GLUCOSE 103 mg/dL (75-110); POTASSIUM 3.5 mmol/L (3.6-5.0); SODIUM 141.5 mmol/L (137-145); TOTAL PROTEIN 7.7 g/dL (6.3-8.2)
[2017-09-05] MEDS ORDERED: DOFETILIDE 500 MCG CAPSULE PO ONE (00:16)
[2017-09-05 00:17] LABS: INTERNATIONAL RATION (INR) 0.92; PROTHROMBIN TIME 12.9 SEC (11.4-15.4)
[2017-09-05] MEDS ORDERED: LIDOCAINE 2% VISCOUS SOLN 20 ML UDCUP PO ONE (00:17)
[2017-09-05] MEDS ORDERED: METOCLOPRAMIDE HCL ORAL SOLN 10 MG/10 ML UDCUP PO ONE (00:17)
[2017-09-05] MEDS ORDERED: MAG HYDROX/AL HYDROX/SIMETH SUSP 30 ML UDCUP PO ONE (00:17)
[2017-09-05] MEDS ORDERED: FAMOTIDINE 20 MG TABLET PO ONE (00:17)
--- NOTE | 2017-09-05 00:17 | ER Document Report ---
ED General - General Chief Complaint: Chest Pain Stated Complaint: CHEST PAIN Time Seen by Provider: 09/04/17 23:22 Notes: The patient is a 41-year-old female with history of hypertension, hyperlipidemia , on estrogen replacement therapy who presents with intermittent left-sided chest pain that has been going on for the past 12-16 hours. Patient states that she has episodes that come approximately every 30-45 minutes and lasts for 3-4 minutes and then spontaneously resolve of left-sided pressure with intermittent radiation into her left jaw and left arm. She states the symptoms started abruptly without any clear trigger and then spontaneously resolved. She denies any history of similar symptoms in the past. She has not seen her general doctor regarding today's concerns. She denies any history of coronary artery disease, family history of early cardiac events, or history of DVT or pulmonary embolus. She denies any nausea, vomiting or shortness of breath. No pleuritic pain. TRAVEL OUTSIDE OF THE [place] IN LAST 30 DAYS: No - Related Data Allergies/Adverse Reactions: aspirin [Aspirin] Allergy (Severe, Verified 09/04/17 23:40) throat closes morphine [Morphine] Allergy (Severe, Verified 09/04/17 23:40) heart races, cannot breath codeine Allergy (Verified 09/04/17 23:40) hydrocodone Allergy (Verified 09/04/17 23:40) nitrofurantoin [From Macrobid] Allergy (Verified 09/04/17 23:40) oxycodone Allergy (Verified 09/04/17 23:40) meperidine HCl [From Demerol] Adverse Reaction (Intermediate, Verified 09/04/17 23:40) nausea, vomiting Penicillins Adverse Reaction (Mild, Verified 09/04/17 23:40) Hives Past Medical History - General Information source: Patient - Social History Smoking Status: Never Smoker Frequency of alcohol use: None Drug Abuse: None Lives with: Spouse/Significant other Family History: Reviewed & Not Pertinent Patient has suicidal ideation: No Patient has homicidal ideation: No - Past Medical History Cardiac Medical History: Reports: Hx Atrial Fibrillation - Chronic, Hx Hypertension Denies: Hx Coronary Artery Disease, Hx Heart Attack Pulmonary Medical History: Denies: Hx Asthma, Hx Bronchitis, Hx COPD, Hx Pneumonia Neurological Medical History: Denies: Hx Cerebrovascular Accident, Hx Seizures Endocrine Medical History: Reports: Hx Diabetes Mellitus Type 2 - diet controlled Renal/ Medical History: Denies: Hx Peritoneal Dialysis Musculoskeltal Medical History: Reports Hx Arthritis - Bilateral knees Past Surgical History: Reports: Hx Dilation and Curettage, Hx Hysterectomy, Hx Oral Surgery - wisdom teeth, Hx Orthopedic Surgery - left elbow and wrist. Denies: Hx Pacemaker - Immunizations Hx Diphtheria, Pertussis, Tetanus Vaccination: Yes Review of Systems - Review of Systems Notes: Constitutional: Negative for fever. HENT: Negative for sore throat. Eyes: Negative for visual changes. Cardiovascular: Positive for chest pain. Respiratory: Negative for shortness of breath. Gastrointestinal: Negative for abdominal pain, vomiting or diarrhea. Genitourinary: Negative for dysuria. Musculoskeletal: Negative for back pain. Skin: Negative for rash. Neurological: Negative for headaches, weakness or numbness. 10 point ROS negative except as marked above and in HPI. Physical Exam - Vital signs Vitals: Temp Pulse Resp BP Pulse Ox 98.8 F 79 20 141/85 H 96 09/04/17 21:42 09/04/17 21:42 09/04/17 21:42 09/04/17 21:42 09/04/17 21:42 Interpretation: Normal Notes: PHYSICAL EXAMINATION: GENERAL: Well-appearing, well-nourished and in no acute distress. HEAD: Atraumatic, normocephalic. EYES: Pupils equal round and reactive to light, extraocular movements intact, sclera anicteric, conjunctiva are normal. ENT: nares patent, oropharynx clear without exudates. Moist mucous membranes. NECK: Normal range of motion, supple without lymphadenopathy LUNGS: Breath sounds clear to auscultation bilaterally and equal. No wheezes rales or rhonchi. HEART: Regular rate and rhythm without murmurs ABDOMEN: Soft, nontender, normoactive bowel sounds. No guarding, no rebound. No masses appreciated. EXTREMITIES: Normal range of motion, no pitting or edema. No cyanosis. NEUROLOGICAL: No focal neurological deficits. Moves all extremities spontaneously and on command. PSYCH: Normal mood, normal affect. SKIN: Warm, Dry, normal turgor, no rashes or lesions noted. Course - Re-evaluation Re-evalutation: 09/05/17 00:13 Patient presents with intermittent chest pain for the past 12-14 hours. Patient has no known coronary artery disease history although does have a history of atrial fibrillation status post ablation and currently on antiarrhythmic agents. The patient does take estrogen supplementation although denies shortness of breath or significant pleuritic pain, no tachycardia. Chest x-ray clear without evidence of a pneumothorax or perforated viscus. Will proceed with a d-dimer, 2 troponins and if patient remains pain-free plan for likely discharge home as she is always quite low risk. 09/05/17 01:30 D-dimer initial troponin are normal. Patient feels improved. Awaiting repeat troponin. 09/05/17 03:40 Repeat troponin remains normal. Patient remains without pain. At this time will discharge with return precautions and follow-up recommendations. Verbal discharge instructions given a the bedside and opportunity for questions given. Medication warnings reviewed. Patient is in agreement with this plan and has verbalized understanding of return precautions and the need for primary care follow-up in the next 24-72 hours. - Vital Signs Vital signs: Temp Pulse Resp BP Pulse Ox 98.8 F 79 18 118/82 97 09/04/17 21:42 09/04/17 21:42 09/05/17 02:31 09/05/17 02:31 09/05/17 02:31 - Laboratory Result Diagrams: 09/04/17 23:34 09/04/17 23:34 Laboratory results interpreted by me: 09/04/17 23:34 Potassium 3.5 L - Diagnostic Test Radiology reviewed: Image reviewed, Reports reviewed Radiology results interpreted by me: 09/05/17 00:16 Chest x-ray: No acute infiltrate or pneumothorax - EKG Interpretation by Me Additional EKG results interpreted by me: 09/05/17 03:40 Sinus rhythm. Rate 80. no ST elevations or depressions. QTC is 430. Discharge - Discharge Clinical Impression: Intermittent chest pain Condition: Good Disposition: HOME, SELF-CARE Additional Instructions: You were seen today for chest pain. The exact cause of your pain is unclear. However, based on your cardiac enzyme testing, chest x-ray, and EKG it does not appear that it is from an immediately life-threatening cause at this time. Although your testing here is normal is critical that you follow-up with your primary care physician for continued evaluation of this chest pain and possible stress testing. I recommended you see your physician within the next 24-48 hours to be evaluated for consideration of a stress test. Please return to emergency department immediately if you have worsening of your chest pain, shortness of breath, vomiting, become unable to exert yourself due to pain or difficulty breathing, you pass out, or have any pain that radiates into your arms, jaw, or back. Please also return if you have any additional symptoms that are concerning to you. Your symptoms may alternatively be due to your esophagus. Please consider beginning famotidine 40 mg in the morning and in the evening for the next 2 weeks to see if this assists with your symptoms. This medication can be purchased directly over the counter. Referrals: JUSTEN PHOENIX PA-C [Primary Care Provider] - Follow up as needed
[2017-09-05 00:28] LABS: CREATINE KINASE MB < 0.22 ng/mL (<4.55); TROPONIN I < 0.012 ng/mL
[2017-09-05] MEDS ORDERED: DOFETILIDE 500 MCG CAPSULE ONE (00:50)
[2017-09-05] MEDS ORDERED: LORAZEPAM 1 MG TABLET PO ONE (01:34)
[2017-09-05 03:56] VITALS: BP 122/85
--- NOTE | 2017-09-05 10:06 | EKG REPORT ---
SEVERITY:- BORDERLINE ECG - SINUS RHYTHM BORDERLINE R WAVE PROGRESSION, ANTERIOR LEADS : Confirmed by: Lise Carl 05-Sep-2017 10:05:43
== END 2017-09-05 04:00 | disposition home or self-care (01) ==
LOC: ER 21:28
DX: R07.9 Chest pain, unspecified (principal); E78.00 Pure hypercholesterolemia, unspecified; I48.91 Unspecified atrial fibrillation; I10 Essential (primary) hypertension; E11.9 Type 2 diabetes mellitus without complications; Z79.890 Hormone replacement therapy; Z88.6 Allergy status to analgesic agent; Z88.0 Allergy status to penicillin; Z90.710 Acquired absence of both cervix and uterus
CPT/HCPCS: 93005; 99285; 36415; 82553; 82550; 85025; 85610; 80053; 84484; 85379; 71046; 93010; J3490

== ENCOUNTER 2017-10-21 12:05 | Inpatient (IN) | payer OTHER ==
--- NOTE | 2017-10-21 12:34 | ER Document Report ---
ED Cardiac - General Mode of Arrival: Ambulatory Information source: Patient TRAVEL OUTSIDE OF THE [place] IN LAST 30 DAYS: No <MONROE EVERETT - Last Filed: 10/21/17 14:11> <JUAQUIN THRASHER - Last Filed: 10/21/17 16:18> - General Chief Complaint: Arrhythmia Stated Complaint: CHEST PAIN Time Seen by Provider: 10/21/17 12:26 Notes: 42-year-old female that presents to the emergency department today with complaints of a heart racing sensation. Patient states that she was at an urgent care for a double ear infection and sinus infection and was sent here due to her elevated heart rate (A. fib with RVR). Patient states her sputum is yellow and green. Patient states she has taken Sudafed for this but she has not taken in the last week. Patient has had an ablation in [place] but is no antiplatelet therapy. Patient states she has not had Afib since the ablation until now. (MONROE EVERETT) - Related Data Allergies/Adverse Reactions: aspirin [Aspirin] Allergy (Severe, Verified 09/04/17 23:40) throat closes morphine [Morphine] Allergy (Severe, Verified 09/04/17 23:40) heart races, cannot breath codeine Allergy (Verified 09/04/17 23:40) hydrocodone Allergy (Verified 09/04/17 23:40) nitrofurantoin [From Macrobid] Allergy (Verified 09/04/17 23:40) oxycodone Allergy (Verified 09/04/17 23:40) meperidine HCl [From Demerol] Adverse Reaction (Intermediate, Verified 09/04/17 23:40) nausea, vomiting Penicillins Adverse Reaction (Mild, Verified 09/04/17 23:40) Hives Past Medical History - General Information source: Patient - Social History Smoking Status: Never Smoker Cigarette use (# per day): No Frequency of alcohol use: None Drug Abuse: None Lives with: Family Family History: Reviewed & Not Pertinent - Past Medical History Cardiac Medical History: Reports: Hx Atrial Fibrillation - Chronic, Hx Hypertension Endocrine Medical History: Reports: Hx Diabetes Mellitus Type 2 - diet controlled Musculoskeletal Medical History: Reports Hx Arthritis - Bilateral knees Past Surgical History: Reports: Hx Dilation and Curettage, Hx Hysterectomy, Hx Oral Surgery - wisdom teeth, Hx Orthopedic Surgery - left elbow and wrist - Immunizations Hx Diphtheria, Pertussis, Tetanus Vaccination: Yes <MONROE EVERETT - Last Filed: 10/21/17 14:11> Review of Systems - Review of Systems Constitutional: No symptoms reported EENT: See HPI, Ear pain, Sinus pressure, Sinus discharge Cardiovascular: See HPI, Heart racing Respiratory: No symptoms reported Gastrointestinal: No symptoms reported Genitourinary: No symptoms reported Female Genitourinary: No symptoms reported Musculoskeletal: No symptoms reported Skin: No symptoms reported Hematologic/Lymphatic: No symptoms reported Neurological/Psychological: No symptoms reported -: Yes All other systems reviewed and negative <MONROE EVERETT - Last Filed: 10/21/17 14:11> Physical Exam <MONROE EVERETT - Last Filed: 10/21/17 14:11> <JUAQUIN THRASHER - Last Filed: 10/21/17 16:18> - Vital signs Vitals: Resp Pulse Ox 21 H 96 10/21/17 12:18 10/21/17 12:18 - Notes Notes: Physical Exam: General: Alert, appears well. HEENT: Normocephalic. Atraumatic. PERRL. Extraocular movements intact. Oropharynx clear. Neck: Supple. Non-tender. Respiratory: No respiratory distress. Clear and equal breath sounds bilaterally. Cardiovascular: Irregularly irregular, tachycardic into the 140s. Abdominal: Morbidly obese. Non-tender. No distension. Normal Bowel Sounds. Back: Non-tender. No deformity or step off. Extremities: Moves all four extremities. Upper extremities: Normal inspection. Normal ROM. Lower extremities: Normal inspection. No edema. Normal ROM. Neurological: Normal cognition. AAOx4. Normal speech. Psychological: Normal affect. Normal Mood. Skin: Warm. Dry. Normal color. (MONROE EVERETT) Course - Laboratory Result Diagrams: 10/21/17 12:45 10/21/17 12:45 <MONROE EVERETT - Last Filed: 10/21/17 14:11> - Laboratory Result Diagrams: 10/21/17 12:45 10/21/17 14:22 - EKG Interpretation by Hi EKG shows normal: [place], Intervals - IMP abnormalities, QRS Complexes. abnormal : ST-T Waves Rate: Tachycardia - 142 Rhythm: A.Fib - Consults Dr. Obayomi Time consulted: 15:55 Consulted provider: will come to ER <JUAQIUN THRASHER - Last Filed: 10/21/17 16:18> - Vital Signs Vital signs: Temp Pulse Resp BP Pulse Ox 25 H 124/86 H 93 10/21/17 13:01 10/21/17 13:01 10/21/17 13:01 - Laboratory Laboratory results interpreted by me: 10/21/17 13:50 Urine Ketones TRACE H Critical Care Note - Critical Care Note Total time excluding time spent on procedures (mins): 35 <ANNA MARIEJUAQUIN - Last Filed: 10/21/17 16:18> Discharge <MONROE EVERETT - Last Filed: 10/21/17 14:11> - Discharge Admitting Provider: Hospitalist Unit Admitted: [facility]U <JUAQUIN THRASHER - Last Filed: 10/21/17 16:18> - Discharge Clinical Impression: Atrial fibrillation with rapid ventricular response Upper respiratory tract infection Qualifiers: URI type: unspecified URI Qualified Code(s): J06.9 - Acute upper respiratory infection, unspecified Condition: Stable Disposition: ADMITTED INPATIENT Referrals: JUSTEN PHOENIX PA-C [Primary Care Provider] - Follow up as needed Scribe Attestation: 10/21/17 12:33 I personally performed the services described in the documentation, reviewed and edited the documentation which was dictated to the scribe in my presence, and it accurately records my words and actions. (MONROE EVERETT) Scribe Documentation - Scribe Written by Scrsyedae:: Aishwarya Forbes, 10/21/2017 1415 acting as scribe for :: Joel <MONROE EVERETT - Last Filed: 10/21/17 14:11>
[2017-10-21 12:58] LABS: ABSOLUTE BASOPHILS # (AUTO) 0.1 10^3/uL (0.0-0.2); ABSOLUTE EOSINOPHILS # (AUTO) 0.2 10^3/uL (0.0-0.6); ABSOLUTE LYMPHOCYTES (AUTO) 1.9 10^3/uL (0.5-4.7); ABSOLUTE MONOCYTES (AUTO) 0.7 10^3/uL (0.1-1.4); BASOPHILS % (AUTO) 1.4 % (0-2); HEMATOCRIT 38.3 % (36.0-47.0); LYMPHOCYTES % (AUTO) 23.8 % (13-45); MEAN CORPUSCULAR HGB CONC 33.8 g/dL (32.0-36.0); MEAN CORPUSCULAR VOLUME 83 fl (80-97); MONOCYTES % (AUTO) 8.6 % (3-13); PLATELET COUNT 264 10^3/uL (150-450); RED BLOOD COUNT 4.62 10^6/uL (3.72-5.28); RED CELL DISTRIBUTION WIDTH 13.5 % (11.5-14.0); SEGMENTED NEUTROPHILS % (AUTO) 64.2 % (42-78); TOTAL CELLS COUNTED % (AUTO) 100 %; WHITE BLOOD COUNT 7.8 10^3/uL (4.0-10.5)
[2017-10-21] MEDS: DILTIAZEM HCL/D5W 125 MG/125 ML RTUINJ IV PRN ×2 (13:14→22:48)
[2017-10-21 13:34] LABS: CREATINE KINASE MB 0.27 ng/mL (<4.55)
[2017-10-21 13:37] LABS: TROPONIN I < 0.012 ng/mL
--- NOTE | 2017-10-21 13:37 | RADIOLOGY REPORT (SQ) ---
EXAM DESCRIPTION: CHEST SINGLE VIEW COMPLETED DATE/TIME: 10/21/2017 1:16 pm REASON FOR STUDY: A. fib with RVR COMPARISON: AP chest 09/04/2017 EXAM PARAMETERS: NUMBER OF VIEWS: One view. TECHNIQUE: Single frontal radiographic view of the chest acquired. RADIATION DOSE: NA LIMITATIONS: AP lordotic portable chest film FINDINGS: LUNGS AND PLEURA: Minimal bandlike lingular atelectasis or scarring. No fluffy alveolar infiltrates worrisome for edema or pneumonia. No pleural effusions. No pneumotho rax. MEDIASTINUM AND HILAR STRUCTURES: No masses. Contour normal. HEART AND VASCULAR STRUCTURES: Heart normal in size. Normal vasculature. BONES: No acute findings. HARDWARE: None in the chest. OTHER: No other significant finding. IMPRESSION: NO ACUTE RADIOGRAPHIC FINDING IN THE CHEST. TECHNICAL DOCUMENTATION: JOB ID: [id number] [employer]- All Rights Reserved Reading location - IP/workstation name: [email or web address]
[2017-10-21] MEDS ORDERED: DILTIAZEM HCL INJ 25 MG/5 ML VIAL IV ONE (14:28)
[2017-10-21 14:54] LABS: ALANINE AMINOTRANSFERASE 40 U/L (9-52); ALBUMIN 4.3 g/dL (3.5-5.0); ALKALINE PHOSPHATASE 89 U/L (38-126); ANION GAP 12 (5-19); ASPARTATE AMINO TRANSFERASE 31 U/L (14-36); BILIRUBIN,DIRECT 0.2 mg/dL (0.0-0.4); BILIRUBIN,TOTAL 0.6 mg/dL (0.2-1.3); BLOOD UREA NITROGEN 9 mg/dL (7-20); CALCIUM 9.5 mg/dL (8.4-10.2); CARBON DIOXIDE 26 mmol/L (22-30); CHLORIDE 105 mmol/L (98-107); CREATINE KINASE 64 U/L (30-135); GLUCOSE 91 mg/dL (75-110); POTASSIUM 3.7 mmol/L (3.6-5.0); SODIUM 143.2 mmol/L (137-145); TOTAL PROTEIN 7.2 g/dL (6.3-8.2)
[2017-10-21 15:35] LABS: APPEARANCE,URINE CLEAR; BILIRUBIN,URINE NEGATIVE (NEGATIVE); COLOR,URINE COLORLESS; GLUCOSE, URINE NEGATIVE (NEGATIVE); KETONES,URINE TRACE mg/dL (NEGATIVE); LEUKOCYTE ESTERASE,URINE NEGATIVE (NEGATIVE); NITRITE,URINE NEGATIVE (NEGATIVE); PROTEIN,URINE NEGATIVE (NEGATIVE); URINE SPECIFIC GRAVITY 1.004; UROBILINOGEN,URINE NEGATIVE mg/dL (<2.0)
[2017-10-21] MEDS ORDERED: ACETAMINOPHEN 325 MG TABLET PO ONE (16:18)
[2017-10-21] MEDS ORDERED: IPRATROPIUM/ALBUTEROL 0.5-2.5 MG/3 ML AMPUL NEB PRN (17:00)
[2017-10-21] MEDS ORDERED: TEMAZEPAM 15 MG CAPSULE PO PRN (17:00)
[2017-10-21] MEDS ORDERED: NORMAL SALINE 1000 ML 1,000 ML IV PRN (17:00)
[2017-10-21] MEDS ORDERED: CROMOLYN SODIUM NASAL SPRAY (5.2 MG/SPRAY) 26 ML NASL SCH (17:15)
[2017-10-21] MEDS ORDERED: DIGOXIN INJ 0.5 MG/2 ML AMPULE IV ONE (17:30)
--- NOTE | 2017-10-21 17:38 | PDOC H&P ---
History of Present Illness Admission Date/PCP: 10/21/17 16:30 JUSTEN PHOENIX PA-C Patient complains of: Sneezing, cough and congestion History of Present Illness: UMAIR MICHELE is a 42 year old female been found to be in atrial fibrillation by PCP. She had presented with upper respiratory tract symptoms of nasal stuffiness as well as coryza and sneezing and during routine exam was found to be in atrial fibrillation. Patient gives a prior history of a feed almost for 20 years and had been on various medications including Cardizem which he said appeared to stop walking after while. She had recently been on Tikosyn for the last year but had an ablation done in March of this year and then was in sequencing through September when it was discontinued. And actually had no palpitations and was asymptomatic from the A. fib standpoint today. Past Medical History Cardiac Medical History: Reports: Atrial Fibrillation - Chronic, Hypertension Denies: Coronary Artery Disease, Myocardial Infarction Pulmonary Medical History: Denies: Asthma, Bronchitis, Chronic Obstructive Pulmonary Disease (COPD), Pneumonia Neurological Medical History: Denies: Seizures Endocrine Medical History: Reports: Diabetes Mellitus Type 2 - diet controlled Musculoskeltal Medical History: Reports: Arthritis - Bilateral knees Hematology: Reports: Anemia - History of. Past Surgical History Past Surgical History: Reports: Hysterectomy, Orthopedic Surgery - left elbow and wrist, Other - AV ablation Denies: Pacemaker Social History Information Source: Patient Lives with: Family Smoking Status: Never Smoker - Advance Directive Resuscitation Status: Full Code Family History Family History: Reviewed & Not Pertinent Parental Family History Reviewed: Yes Children Family History Reviewed: Yes Sibling(s) Family History Reviewed.: Yes Medication/Allergy Home Medications: Epinephrine [Epipen 2-Fernando] 0.3 mg IM DAILYP PRN 10/21/17 RX: Esomeprazole Magnesium [Nexium] 20 mg PO QHS 10/21/17 RX: Estradiol [Estrace] 1 mg PO DAILY 10/21/17 RX: Hydroxyzine HCl [Atarax 25 mg Tablet] 25 mg PO Q8 10/21/17 RX: Ibuprofen [Motrin 800 mg Tablet] 800 mg PO Q8HP PRN 10/21/17 RX: Levocetirizine Dihydrochloride [Xyzal] 5 mg PO QHS 10/21/17 RX: Lorazepam [Ativan 0.5 mg Tablet] 0.5 mg PO Q12HP PRN 10/21/17 RX: Metoprolol Succinate [Toprol Xl 50 mg Tab.sr] 50 mg PO DAILY 10/21/17 RX: Trazodone HCl [Desyrel 50 mg Tablet] 50 mg PO QHS 10/21/17 Allergies/Adverse Reactions: aspirin [Aspirin] Allergy (Severe, Verified 09/04/17 23:40) throat closes morphine [Morphine] Allergy (Severe, Verified 09/04/17 23:40) heart races, cannot breath codeine Allergy (Verified 09/04/17 23:40) hydrocodone Allergy (Verified 09/04/17 23:40) nitrofurantoin [From Macrobid] Allergy (Verified 09/04/17 23:40) oxycodone Allergy (Verified 09/04/17 23:40) meperidine HCl [From Demerol] Adverse Reaction (Intermediate, Verified 09/04/17 23:40) nausea, vomiting Penicillins Adverse Reaction (Mild, Verified 09/04/17 23:40) Hives Review of Systems All systems: reviewed and no additional remarkable complaints except as stated Physical Exam Vital Signs: Temp Pulse Resp BP Pulse Ox 26 H 130/106 H 94 10/21/17 16:01 10/21/17 16:01 10/21/17 16:01 Intake & Output 10/20/17 10/21/17 10/22/17 06:59 06:59 06:59 Intake Total 19 Balance 19 General appearance: PRESENT: no acute distress, well-developed, well-nourished Head exam: PRESENT: atraumatic, normocephalic Eye exam: PRESENT: conjunctiva pink, EOMI, PERRLA. ABSENT: scleral icterus Ear exam: PRESENT: normal external ear exam Mouth exam: PRESENT: moist, tongue midline Neck exam: ABSENT: carotid bruit, JVD, lymphadenopathy, thyromegaly Respiratory exam: PRESENT: clear to auscultation williams. ABSENT: rales, rhonchi, wheezes Cardiovascular exam: PRESENT: irregular rhythm, +S1, +S2, tachycardia. ABSENT: diastolic murmur, rubs, systolic murmur Pulses: PRESENT: normal dorsalis pedis pul Vascular exam: PRESENT: normal capillary refill GI/Abdominal exam: PRESENT: normal bowel sounds, soft. ABSENT: distended, guarding, mass, organolmegaly, rebound, tenderness Rectal exam: PRESENT: deferred Extremities exam: PRESENT: full ROM. ABSENT: calf tenderness, clubbing, pedal edema Neurological exam: PRESENT: alert, awake, oriented to person, oriented to place , oriented to time, oriented to situation, CN II-XII grossly intact. ABSENT: motor sensory deficit Psychiatric exam: PRESENT: appropriate affect, normal mood. ABSENT: homicidal ideation, suicidal ideation Skin exam: PRESENT: dry, intact, warm. ABSENT: cyanosis, rash Results Laboratory Results: 10/21/17 13:50 Urine Ketones TRACE H 10/21/17 12:45 10/21/17 14:22 MCV 83 fl (80-97) 10/21/17 12:45 MCH 28.0 pg (27.0-33.4) 10/21/17 12:45 MCHC 33.8 g/dL (32.0-36.0) 10/21/17 12:45 RDW 13.5 % (11.5-14.0) 10/21/17 12:45 Seg Neutrophils % 64.2 % (42-78) 10/21/17 12:45 Lymphocytes % 23.8 % (13-45) 10/21/17 12:45 Monocytes % 8.6 % (3-13) 10/21/17 12:45 Eosinophils % 2.0 % (0-6) 10/21/17 12:45 Basophils % 1.4 % (0-2) 10/21/17 12:45 Absolute Neutrophils 5.0 10^3/uL (1.7-8.2) 10/21/17 12:45 Absolute Lymphocytes 1.9 10^3/uL (0.5-4.7) 10/21/17 12:45 Absolute Monocytes 0.7 10^3/uL (0.1-1.4) 10/21/17 12:45 Absolute Eosinophils 0.2 10^3/uL (0.0-0.6) 10/21/17 12:45 Absolute Basophils 0.1 10^3/uL (0.0-0.2) 10/21/17 12:45 Chloride 105 mmol/L (98-107) 10/21/17 14:22 Carbon Dioxide 26 mmol/L (22-30) 10/21/17 14:22 Anion Gap 12 (5-19) 10/21/17 14:22 Est GFR ( Amer) > 60 (>60) 10/21/17 14:22 Est GFR (Non-Af Amer) > 60 (>60) 10/21/17 14:22 Glucose 91 mg/dL (75-110) 10/21/17 14:22 Calcium 9.5 mg/dL (8.4-10.2) 10/21/17 14:22 Magnesium 2.1 mg/dL (1.6-2.3) 10/21/17 14:22 Total Bilirubin 0.6 mg/dL (0.2-1.3) 10/21/17 14:22 AST 31 U/L (14-36) 10/21/17 14:22 ALT 40 U/L (9-52) 10/21/17 14:22 Alkaline Phosphatase 89 U/L (38-126) 10/21/17 14:22 Total Protein 7.2 g/dL (6.3-8.2) 10/21/17 14:22 Albumin 4.3 g/dL (3.5-5.0) 10/21/17 14:22 TSH 2.50 uIU/mL (0.47-4.68) 10/21/17 12:45 Urine Color COLORLESS 10/21/17 13:50 Urine Appearance CLEAR 10/21/17 13:50 Urine pH 7.0 (5.0-9.0) 10/21/17 13:50 Ur Specific [place] 1.004 10/21/17 13:50 Urine Protein NEGATIVE mg/dL (NEGATIVE) 10/21/17 13:50 Urine Glucose (UA) NEGATIVE mg/dL (NEGATIVE) 10/21/17 13:50 Urine Ketones TRACE mg/dL (NEGATIVE) H 10/21/17 13:50 Urine Blood NEGATIVE (NEGATIVE) 10/21/17 13:50 Urine Nitrite NEGATIVE (NEGATIVE) 10/21/17 13:50 Ur Leukocyte Esterase NEGATIVE (NEGATIVE) 10/21/17 13:50 Urine RBC (Auto) 0 /HPF 10/21/17 13:50 10/21/17 10/21/17 10/21/17 12:45 12:45 14:22 Creatine Kinase Cancelled 64 CK-MB (CK-2) 0.27 Troponin I < 0.012 Impressions: Chest X-Ray 10/21/17 12:33 IMPRESSION: NO ACUTE RADIOGRAPHIC FINDING IN THE CHEST. Assessment & Plan - Diagnosis (1) Atrial fibrillation with rapid ventricular response Is this a current diagnosis for this admission?: Yes Plan: Patient was found to be incidentally in atrial fibrillation with a rapid ventricular response with a heart rate as high as 150. She had actually presented to her PCPs office with respiratory tract symptoms with cough rhinorrhea and coryza. During routine exam she was found to be tachycardic and EKG did demonstrate atrial fibrillation. Interestingly patient was not having any symptoms related to palpitations so chest pain or dizziness. She has a history of atrial fibrillation almost 20 years. He had been on multiple medications including Cardizem and she was recently on cheek was seen for about a year. She had an ablation done in March of this year and then had been on Tikosyn for the last 6 months and this was recently discontinued about a month ago. She had not been on any anticoagulant. She has been on Cardizem drip and heart rate was still in the 130s so she was given a dose of digoxin IV. Also discussed with Dr. Carl and he has been consulted. Suggest that the patient on Multaq 400 mg twice a day. Patient will be admitted with that Cardizem drip and she will also be started on anticoagulant (2) Upper respiratory tract infection Qualifiers: URI type: unspecified URI Qualified Code(s): J06.9 - Acute upper respiratory infection, unspecified Is this a current diagnosis for this admission?: Yes Plan: This probably the trigger for the atrial fibrillation. Patient will be placed on antibiotics. Will also place her on some Mucinex as well as nasal spray. Chest x-ray shows no acute findings (3) Morbid obesity Is this a current diagnosis for this admission?: Yes - Time Time Spent: 50 to 70 Minutes Anticipated discharge: Home Within: within 48 hours - Inpatient Certification Based on my medical assessment, after consideration of the patient's comorbidities, presenting symptoms, or acuity I expect that the services needed warrant INPATIENT care.: Yes Medical Necessity: Need For Continuous Telemetry Monitoring
[2017-10-21] MEDS: APIXABAN 5 MG TABLET PO SCH (18:06)
[2017-10-21] MEDS: ACETAMINOPHEN 325 MG TABLET PO PRN (19:55)
[2017-10-21] MEDS: CEFUROXIME 250 MG TABLET PO SCH (19:55)
[2017-10-21] MEDS: SODIUM CHLORIDE NASAL SPRAY 44 ML NASL SCH ×2 (19:55→21:15)
[2017-10-21] MEDS ORDERED: DRONEDARONE HYDROCHLORIDE 400 MG TABLET PO ONE (21:00)
[2017-10-21] MEDS: CETIRIZINE 5 MG TABLET PO SCH (21:14)
[2017-10-21] MEDS: LANSOPRAZOLE 15 MG TAB.RAP.DR PO SCH (21:14)
[2017-10-21] MEDS: LORAZEPAM 0.5 MG TABLET PO PRN (21:14)
[2017-10-21] MEDS: TRAZODONE HCL 50 MG TABLET PO SCH (21:14)
[2017-10-21] MEDS: GUAIFENESIN 600 MG TABLET.SA PO SCH (21:14)
[2017-10-21] MEDS ORDERED: DRONEDARONE HYDROCHLORIDE 400 MG TABLET PO SCH ×2 (22:00)
--- NOTE | 2017-10-21 22:16 | PDOC CONSULTATION ---
Consultation Consult Date: 10/21/17 Attending physician:: GRAYSON MELARA Consult reason:: A FIB RVR History of Present Illness Admission Date/PCP: 10/21/17 16:30 JUSTEN PHOENIX PA-C Patient complains of: Atrial fibrillation, coryza History of Present Illness: UMAIR MICHELE is a 42 year old female been found to be in atrial fibrillation by PCP. She had presented with upper respiratory tract symptoms of nasal stuffiness as well as coryza and sneezing and during routine exam was found to be in atrial fibrillation. Patient gives a prior history of atrial fibrillation almost for 20 years and had been on various medications including Cardizem which he said appeared to stop walking after while. She had recently been on Tikosyn for the last year but had an ablation done in March of this year and then was in sequencing through September when it was discontinued. And actually had no palpitations and was asymptomatic from the A. fib standpoint today. Patient was placed on Cardizem drip and also had a dose of digoxin after the hospitalist consulted with me. Patient claims that she had a sleep study about a year ago which was negative. Patient claims that she has lost some weight but has always been overweight. 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 Past Medical History Cardiac Medical History: Reports: Atrial Fibrillation - Chronic, Hypertension Denies: Coronary Artery Disease, Myocardial Infarction Pulmonary Medical History: Denies: Asthma, Bronchitis, Chronic Obstructive Pulmonary Disease (COPD), Pneumonia Neurological Medical History: Denies: Seizures Endocrine Medical History: Reports: Diabetes Mellitus Type 2 - diet controlled Musculoskeltal Medical History: Reports: Arthritis - Bilateral knees Hematology: Reports: Anemia - History of. Past Surgical History Past Surgical History: Reports: Hysterectomy, Orthopedic Surgery - left elbow and wrist, Other - AV ablation Denies: Pacemaker Social History Information Source: Patient Lives with: Family Smoking Status: Never Smoker Frequency of Alcohol Use: None Hx Recreational Drug Use: No Hx Prescription Drug Abuse: No - Advance Directive Resuscitation Status: Full Code Family History Family History: None Parental Family History Reviewed: Yes Children Family History Reviewed: Yes Sibling(s) Family History Reviewed.: Yes Medication/Allergy Home Medications: Epinephrine [Epipen 2-Fernando] 0.3 mg IM DAILYP PRN 10/21/17 Esomeprazole Magnesium [Nexium] 20 mg PO QHS 10/21/17 Estradiol [Estrace] 1 mg PO DAILY 10/21/17 Hydroxyzine HCl [Atarax 25 mg Tablet] 25 mg PO Q8 10/21/17 Ibuprofen [Motrin 800 mg Tablet] 800 mg PO Q8HP PRN 10/21/17 Levocetirizine Dihydrochloride [Xyzal] 5 mg PO QHS 10/21/17 Lorazepam [Ativan 0.5 mg Tablet] 0.5 mg PO Q12HP PRN 10/21/17 Metoprolol Succinate [Toprol Xl 50 mg Tab.sr] 50 mg PO DAILY 10/21/17 Trazodone HCl [Desyrel 50 mg Tablet] 50 mg PO QHS 10/21/17 Allergies/Adverse Reactions: aspirin [Aspirin] Allergy (Severe, Verified 09/04/17 23:40) throat closes morphine [Morphine] Allergy (Severe, Verified 09/04/17 23:40) heart races, cannot breath codeine Allergy (Verified 09/04/17 23:40) hydrocodone Allergy (Verified 09/04/17 23:40) nitrofurantoin [From Macrobid] Allergy (Verified 09/04/17 23:40) oxycodone Allergy (Verified 09/04/17 23:40) meperidine HCl [From Demerol] Adverse Reaction (Intermediate, Verified 09/04/17 23:40) nausea, vomiting Penicillins Adverse Reaction (Mild, Verified 09/04/17 23:40) Hives Review of Systems Review of Systems: Please see history of present illness and past medical history as wall. Constitutional: No fever or chills reported. Recent problem with coryza Head : No recent chronic headaches, recent head injury. Eyes: No recent eye pain, diplopia, redness, discharge, acute visual changes. Ears: No recent chronic ear pain, acute hearing loss, ear discharge. Oral cavity: No recent ulcerations, bleeding, oral cavity discomfort. Neck: No recent acute neck pain reported. Hematologic: No recent easy bruising or bleeding. Lymphatic: No recent lymph node enlargement reported. Cardiovascular system review: See history of present illness. Respiratory system review: No hemoptysis or blood clots in the lungs reported. Mild Shortness of breath on exertion Gastrointestinal system review: Negative for any recent acute hematemesis, melena. Genitourinary system review: No recent acute or chronic hematuria, flank pain, UTI etc. reported. Skin system review: Negative for any recent abnormal bruising, no rash, no pruritus reported. Neurologic: No prior history of strokes, mini strokes, seizure disorder. Psychologic: No history of major psychosis or major depression reported. Musculoskeletal: Minor aches and pains reported. No acute joint swelling reported. Endocrine: No recent polyuria, polydipsia, recent heat or cold intolerance. Physical Exam Vital Signs: Temp Pulse Resp BP Pulse Ox 98.2 F 93 16 100/68 94 10/21/17 19:34 10/21/17 19:34 10/21/17 19:34 10/21/17 19:34 10/21/17 19:34 Intake & Output 10/20/17 10/21/17 10/22/17 06:59 06:59 06:59 Intake Total 19 Balance 19 Weight 117.1 kg Results Laboratory Results: 10/21/17 19:00 Troponin I < 0.012 Impressions: Chest X-Ray 10/21/17 12:33 IMPRESSION: NO ACUTE RADIOGRAPHIC FINDING IN THE CHEST. Assessment & Plan - Diagnosis (1) Atrial fibrillation with rapid ventricular response Is this a current diagnosis for this admission?: Yes (2) Morbid obesity Is this a current diagnosis for this admission?: Yes (3) Gastroesophageal reflux disease Qualifiers: Esophagitis presence: esophagitis presence not specified Qualified Code(s) : K21.9 - Gastro-esophageal reflux disease without esophagitis Is this a current diagnosis for this admission?: Yes - Notes Notes: Agree with Cardiazem Drip and Digoxin for rate control. Added Multaq 400mg BID. Continue Eliquis Rx. Rec sleep study as OP. Ordered 2 D Echo Patient has unspecified atrial fibrillation. Patient has been on Eliquis therapy in the past. Feel that it is worth restarting it. For rate control agree with Cardizem drip. Continue digoxin. Once patient has stable heart rate , could switch to p.o. Cardizem at whatever dose patient was supposed to receive over 24 hours in IV form. This was discussed with hospitalist. Discussed a small increased risk of bleeding but on the balance benefits far exceeds the risk. Patient felt to be a satisfactory candidate for chronic anticoagulation. Obesity: Discussed association of obesity with increased recurrence of atrial fibrillation. Patient has been encouraged to lose weight. Gastroesophageal reflux: Continue proton pump inhibitor. Weight loss and treatment of sleep apnea often helps reduce reflux symptoms. Discussed that even though she had a negative sleep study in the past, given her body habitus, comorbid diagnosis of atrial fibrillation, I feel it is worthwhile to repeat the sleep study. This was actually recommended to the patient. - Time Time Spent: 30 to 50 Minutes - More than 50% of the time spent coordinating care , discussing management plans with involved caregivers. Management plans discussed with involved personnels. Medical decision making was of moderate to high complexity, patient's has multiple comorbidities. Medications reviewed and adjusted accordingly: Yes
--- NOTE | 2017-10-21 23:39 | EKG REPORT ---
SEVERITY:- ABNORMAL ECG - ATRIAL FIBRILLATION, V-RATE 89-172 BORDERLINE T WAVE ABNORMALITIES : Confirmed by: Noemi Chan MD 21-Oct-2017 23:38:08
[2017-10-22] MEDS: ACETAMINOPHEN 325 MG TABLET PO PRN ×4 (01:07→18:37)
[2017-10-22] MEDS: SODIUM CHLORIDE NASAL SPRAY 44 ML NASL SCH ×4 (07:58→21:09)
[2017-10-22] MEDS: DILTIAZEM HCL/D5W 125 MG/125 ML RTUINJ IV PRN (08:32)
[2017-10-22 08:56] LABS: HEMATOCRIT 39.9 % (36.0-47.0); HEMOGLOBIN 13.5 g/dL (12.0-15.5); MEAN CORPUSCULAR HEMOGLOBIN 28.3 pg (27.0-33.4); MEAN CORPUSCULAR HGB CONC 33.8 g/dL (32.0-36.0); MEAN CORPUSCULAR VOLUME 84 fl (80-97); PLATELET COUNT 262 10^3/uL (150-450); RED BLOOD COUNT 4.77 10^6/uL (3.72-5.28); RED CELL DISTRIBUTION WIDTH 13.7 % (11.5-14.0); WHITE BLOOD COUNT 6.9 10^3/uL (4.0-10.5)
[2017-10-22 09:28] LABS: ANION GAP 11 (5-19); BLOOD UREA NITROGEN 11 mg/dL (7-20); CALCIUM 9.3 mg/dL (8.4-10.2); CARBON DIOXIDE 26 mmol/L (22-30); CHLORIDE 105 mmol/L (98-107); GLUCOSE 107 mg/dL (75-110); POTASSIUM 3.6 mmol/L (3.6-5.0); SODIUM 141.9 mmol/L (137-145)
[2017-10-22] MEDS: GUAIFENESIN 600 MG TABLET.SA PO SCH ×2 (10:38→21:08)
[2017-10-22] MEDS: APIXABAN 5 MG TABLET PO SCH ×2 (10:38→17:50)
[2017-10-22] MEDS: CEFUROXIME 250 MG TABLET PO SCH ×2 (10:38→17:50)
[2017-10-22] MEDS ORDERED: DILTIAZEM HCL 240 MG CAPSULE.CR PO ONE (11:00)
[2017-10-22] MEDS: PROMETHAZINE HCL INJ 25 MG/1 ML VIAL IV PRN (13:04)
--- NOTE | 2017-10-22 15:56 | PDOC PROGRESS REPORT ---
Subjective Progress Note for:: 10/22/17 Subjective:: Patient feels better however she is still tachycardic especially on ambulating. Reason For Visit: ATRIAL FIBRILLATION WITH RAPID VENTRICULAR RESPONS Physical Exam Vital Signs: Temp Pulse Resp BP Pulse Ox 98.5 F 133 H 12 109/80 94 10/22/17 08:05 10/22/17 14:24 10/22/17 14:24 10/22/17 11:00 10/22/17 14:24 Intake & Output 10/21/17 10/22/17 10/23/17 06:59 06:59 06:59 Intake Total 1003 1910 Output Total 1 Balance 1002 1910 Weight 119.8 kg General appearance: PRESENT: no acute distress, well-developed, well-nourished Head exam: PRESENT: atraumatic, normocephalic Eye exam: PRESENT: conjunctiva pink, EOMI, PERRLA. ABSENT: scleral icterus Ear exam: PRESENT: normal external ear exam Mouth exam: PRESENT: moist, tongue midline Neck exam: ABSENT: carotid bruit, JVD, lymphadenopathy, thyromegaly Respiratory exam: PRESENT: clear to auscultation williams. ABSENT: rales, rhonchi, wheezes Cardiovascular exam: PRESENT: irregular rhythm, rubs, +S1, +S2. ABSENT: diastolic murmur, systolic murmur Pulses: PRESENT: normal dorsalis pedis pul Vascular exam: PRESENT: normal capillary refill GI/Abdominal exam: PRESENT: normal bowel sounds, soft. ABSENT: distended, guarding, mass, organolmegaly, rebound, tenderness Rectal exam: PRESENT: deferred Extremities exam: PRESENT: full ROM. ABSENT: calf tenderness, clubbing, pedal edema Neurological exam: PRESENT: alert, awake, oriented to person, oriented to place , oriented to time, oriented to situation, CN II-XII grossly intact. ABSENT: motor sensory deficit Psychiatric exam: PRESENT: appropriate affect, normal mood. ABSENT: homicidal ideation, suicidal ideation Skin exam: PRESENT: dry, intact, warm. ABSENT: cyanosis, rash Results Laboratory Results: 10/22/17 08:15 10/22/17 08:15 10/22/17 10/22/17 10/22/17 08:15 08:15 08:15 WBC 6.9 RBC 4.77 Hgb 13.5 Hct 39.9 MCV 84 MCH 28.3 MCHC 33.8 RDW 13.7 Plt Count 262 Sodium 141.9 Potassium 3.6 Chloride 105 Carbon Dioxide 26 Anion Gap 11 BUN 11 Creatinine 0.61 Est GFR ( Amer) > 60 Est GFR (Non-Af Amer) > 60 Glucose 107 Calcium 9.3 Magnesium 2.2 TSH 2.50 10/21/17 19:00 Troponin I < 0.012 Impressions: Chest X-Ray 10/21/17 12:33 IMPRESSION: NO ACUTE RADIOGRAPHIC FINDING IN THE CHEST. Assessment & Plan - Diagnosis (1) Atrial fibrillation with rapid ventricular response Is this a current diagnosis for this admission?: Yes Plan: Remains in atrial fibrillation. Started on Cardizem Po earlier. Rate is better but she still tachycardic on ambulating. Will keep overnight and adjust her meds as needed. Dr. Carl advised to dc Multaq (2) Upper respiratory tract infection Qualifiers: URI type: unspecified URI Qualified Code(s): J06.9 - Acute upper respiratory infection, unspecified Is this a current diagnosis for this admission?: Yes Plan: Cont Ceftin (3) Morbid obesity Is this a current diagnosis for this admission?: Yes Plan: Advised on need to lose weight
[2017-10-22] MEDS: BUTALB/ACETAMINOPHEN/CAFFEINE 1 TAB EACH PO PRN ×2 (16:31→22:50)
[2017-10-22] MEDS: NEOMY SULF/POLYMYX B SULF/HC OTIC SUSP 10 ML AS SCH ×2 (17:50→21:10)
[2017-10-22] MEDS: TRAZODONE HCL 50 MG TABLET PO SCH (21:08)
[2017-10-22] MEDS: LORAZEPAM 0.5 MG TABLET PO PRN (21:08)
[2017-10-22] MEDS: DILTIAZEM HCL 120 MG CAP.SR.24H PO SCH (21:09)
[2017-10-22] MEDS: LANSOPRAZOLE 15 MG TAB.RAP.DR PO SCH (21:09)
[2017-10-22] MEDS: CETIRIZINE 5 MG TABLET PO SCH (21:11)
[2017-10-23] MEDS: BUTALB/ACETAMINOPHEN/CAFFEINE 1 TAB EACH PO PRN (08:05)
[2017-10-23] MEDS: SODIUM CHLORIDE NASAL SPRAY 44 ML NASL SCH ×2 (08:06→12:24)
[2017-10-23] MEDS: GUAIFENESIN 600 MG TABLET.SA PO SCH (09:08)
[2017-10-23] MEDS: APIXABAN 5 MG TABLET PO SCH (09:09)
[2017-10-23] MEDS: DILTIAZEM HCL 120 MG CAP.SR.24H PO SCH (09:09)
[2017-10-23] MEDS: CEFUROXIME 250 MG TABLET PO SCH (09:10)
[2017-10-23] MEDS: NEOMY SULF/POLYMYX B SULF/HC OTIC SUSP 10 ML AS SCH (09:11)
[2017-10-23] MEDS ORDERED: DILTIAZEM HCL 60 MG TABLET PO ONE (10:30)
[2017-10-23] MEDS ORDERED: DILTIAZEM HCL 120 MG CAP.SR.24H PO SCH (11:16)
[2017-10-23] MEDS: PROMETHAZINE HCL INJ 25 MG/1 ML VIAL IV PRN (12:38)
--- NOTE | 2017-10-23 13:28 | PDOC DISCHARGE SUMMARY ---
General - Admit/Disc Date/PCP Admission Date/Primary Care Provider: 10/21/17 16:30 JUSTNE PHOENIX PA-C Discharge Date: 10/23/17 - Discharge Diagnosis (1) Atrial fibrillation with rapid ventricular response Is this a current diagnosis for this admission?: Yes (2) Upper respiratory tract infection Is this a current diagnosis for this admission?: Yes (3) Morbid obesity Is this a current diagnosis for this admission?: Yes - Additional Information Resuscitation Status: Full Code Discharge Activity: Activity As Tolerated Prescriptions: Apixaban [Eliquis 5 mg Tablet] 5 mg PO BID #60 tablet Cefuroxime Axetil [Ceftin 250 mg Tablet] 500 mg PO BID #20 tablet Diltiazem HCl [Cardizem Cd 180 mg Capsule] 180 mg PO Q12 #60 capsule.cr Home Medications: Epinephrine [Epipen 2-Fernando] 0.3 mg IM DAILYP PRN 10/21/17 Esomeprazole Magnesium [Nexium] 20 mg PO QHS 10/21/17 Estradiol [Estrace] 1 mg PO DAILY 10/21/17 Hydroxyzine HCl [Atarax 25 mg Tablet] 25 mg PO Q8 10/21/17 Ibuprofen [Motrin 800 mg Tablet] 800 mg PO Q8HP PRN 10/21/17 Levocetirizine Dihydrochloride [Xyzal] 5 mg PO QHS 10/21/17 Lorazepam [Ativan 0.5 mg Tablet] 0.5 mg PO Q12HP PRN 10/21/17 Trazodone HCl [Desyrel 50 mg Tablet] 50 mg PO QHS 10/21/17 Apixaban [Eliquis 5 mg Tablet] 5 mg PO BID #60 tablet 10/22/17 Cefuroxime Axetil [Ceftin 250 mg Tablet] 500 mg PO BID #20 tablet 10/22/17 Guaifenesin [Mucinex Sr 600 mg Tablet.sa] 1,200 mg PO Q12 tablet.sa 10/22/17 Sodium Chloride [[place] Nasal [place] 44 ml Bottle] 1 spray NASL ACHS bottle 10/22 Diltiazem HCl [Cardizem Cd 180 mg Capsule] 180 mg PO Q12 #60 capsule.cr History of Present Illness History of Present Illness: UMAIR MICHELE is a 42 year old female been found to be in atrial fibrillation by PCP. She had presented with upper respiratory tract symptoms of nasal stuffiness as well as coryza and sneezing and during routine exam was found to be in atrial fibrillation. Patient gives a prior history of a feed almost for 20 years and had been on various medications including Cardizem which he said appeared to stop walking after while. She had recently been on Tikosyn for the last year but had an ablation done in March of this year and then was in sequencing through September when it was discontinued. And actually had no palpitations and was asymptomatic from the A. fib standpoint Hospital Course Hospital Course: Patient was admitted with diagnosis of atrial ablation with a rapid ventricular response. She is status post recent ablation and was recently in Tikosyn until about a month ago. She has an upper respiratory tract infection which likely was the trigger for this bout of A. fib. Intravenous Cardizem and this was transitioned to oral Cardizem. Cardizem dose was adjusted and a rate is better controlled however patient will need outpatient follow-up with a [employer] financial developer for further management. Patient was started on apixaban. Was treated with cefuroxime as well as decongestants for her respiratory tract infection. She remains hemodynamically stable with no further interventions been planned she is been discharged home to follow-up with her [employer] financial developer. She was seen by [employer] financial developer during this admission. Please see his consultation note for full report Echocardiogram was not done as patient recently had one done as per her report and she is to follow-up with [employer] financial developer as explained above. Physical Exam Vital Signs: Temp Pulse Resp BP Pulse Ox 98.5 F 82 16 119/84 99 10/23/17 11:43 10/23/17 11:43 10/23/17 11:43 10/23/17 11:43 10/23/17 11:43 Intake & Output 10/22/17 10/23/17 10/24/17 06:59 06:59 06:59 Intake Total 1003 3110 525 Output Total 1 0 Balance 1002 3110 525 Weight 119.8 kg 120.3 kg General appearance: PRESENT: no acute distress, morbidly obese, well-developed, well-nourished Head exam: PRESENT: atraumatic, normocephalic Eye exam: PRESENT: conjunctiva pink, EOMI, PERRLA. ABSENT: scleral icterus Ear exam: PRESENT: normal external ear exam Mouth exam: PRESENT: moist, tongue midline Neck exam: ABSENT: carotid bruit, JVD, lymphadenopathy, thyromegaly Respiratory exam: PRESENT: clear to auscultation williams. ABSENT: rales, rhonchi, wheezes Cardiovascular exam: PRESENT: irregular rhythm, +S1, +S2. ABSENT: diastolic murmur, rubs, systolic murmur Pulses: PRESENT: normal dorsalis pedis pul Vascular exam: PRESENT: normal capillary refill GI/Abdominal exam: PRESENT: normal bowel sounds, soft. ABSENT: distended, guarding, mass, organolmegaly, rebound, tenderness Rectal exam: PRESENT: deferred Extremities exam: PRESENT: full ROM. ABSENT: calf tenderness, clubbing, pedal edema Neurological exam: PRESENT: alert, awake, oriented to person, oriented to place , oriented to time, oriented to situation, CN II-XII grossly intact. ABSENT: motor sensory deficit Psychiatric exam: PRESENT: appropriate affect, normal mood Skin exam: PRESENT: dry, intact, warm. ABSENT: cyanosis, rash Results Laboratory Results: 10/22/17 08:15 10/22/17 08:15 10/21/17 19:00 Troponin I < 0.012 Impressions: Chest X-Ray 10/21/17 12:33 IMPRESSION: NO ACUTE RADIOGRAPHIC FINDING IN THE CHEST. Qualifiers - * PATIENT BEING DISCHARGED WITH ANY OF THE FOLLOWING DIAGNOSIS: No Plan Time Spent: Greater than 30 Minutes
[2017-10-23 14:17] VITALS: BP 113/69
[2017-10-23] MEDS ORDERED: DILTIAZEM HCL 180 MG CAPSULE.CR PO SCH (22:00)
== END 2017-10-23 14:35 | disposition home or self-care (01) | DRG 309 ==
LOC: ER 12:05 → EH 16:30 → 3N 17:30
PROVIDERS: ADMIT Internal Medicine; ATTEND Internal Medicine
DX: I48.2 Chronic atrial fibrillation (principal); Z68.41 Body mass index [BMI] 40.0-44.9, adult; J06.9 Acute upper respiratory infection, unspecified; I10 Essential (primary) hypertension; E11.8 Type 2 diabetes mellitus with unspecified complications; E66.01 Morbid (severe) obesity due to excess calories; Z88.6 Allergy status to analgesic agent; Z88.5 Allergy status to narcotic agent; Z88.0 Allergy status to penicillin
CPT/HCPCS: 36415; 71045; 80048; 80053; 81001; 82550; 82553; 83735; 84443; 84484; 85025; 85027; 85379; 93005; 93010; 96365; 96366; 99291; J1160; J2550; J3490; J7030

== ENCOUNTER 2018-04-15 18:18 | Emergency (ER) | payer OTHER ==
--- NOTE | 2018-04-15 18:59 | RADIOLOGY REPORT (SQ) ---
EXAM DESCRIPTION: CHEST SINGLE VIEW COMPLETED DATE/TIME: 04/15/2018 6:48 pm REASON FOR STUDY: chest pain COMPARISON: 09/04/2017 EXAM PARAMETERS: NUMBER OF VIEWS: One view. TECHNIQUE: Single frontal radiographic view of the chest acquired. RADIATION DOSE: NA LIMITATIONS: None. FINDINGS: LUNGS AND PLEURA: Low lung volumes, poor inspiratory effort. Small pleural effusions are suggested. MEDIASTINUM AND HILAR STRUCTURES: No masses. Contour normal. HEART AND VASCULAR STRUCTURES: Heart normal in size. Normal vasculature. BONES: No acute findings. HARDWARE: None in the chest. OTHER: No other significant finding. IMPRESSION: Small pleural effusions. Low lung volumes. TECHNICAL DOCUMENTATION: JOB ID: [id number] [employer]- All Rights Reserved Reading location - IP/workstation name: [email or web address]
[2018-04-15 19:05] LABS: ABSOLUTE BASOPHILS # (AUTO) 0.2 10^3/uL (0.0-0.2); ABSOLUTE EOSINOPHILS # (AUTO) 0.2 10^3/uL (0.0-0.6); ABSOLUTE MONOCYTES (AUTO) 1.4 10^3/uL (0.1-1.4); ABSOLUTE NEUT (AUTO) 10.7 10^3/uL (1.7-8.2); BASOPHILS % (AUTO) 1.2 % (0-2); EOSINOPHILS % (AUTO) 1.4 % (0-6); HEMOGLOBIN 11.8 g/dL (12.0-15.5); LYMPHOCYTES % (AUTO) 7.4 % (13-45); MEAN CORPUSCULAR HEMOGLOBIN 28.1 pg (27.0-33.4); MEAN CORPUSCULAR HGB CONC 33.8 g/dL (32.0-36.0); MEAN CORPUSCULAR VOLUME 83 fl (80-97); MONOCYTES % (AUTO) 10.7 % (3-13); PLATELET COUNT 245 10^3/uL (150-450); RED BLOOD COUNT 4.22 10^6/uL (3.72-5.28); RED CELL DISTRIBUTION WIDTH 14.5 % (11.5-14.0); SEGMENTED NEUTROPHILS % (AUTO) 79.3 % (42-78); TOTAL CELLS COUNTED % (AUTO) 100 %; WHITE BLOOD COUNT 13.5 10^3/uL (4.0-10.5)
[2018-04-15 19:24] LABS: GLUCOSE 115 mg/dL (75-110)
[2018-04-15 19:25] LABS: ALANINE AMINOTRANSFERASE 41 U/L (9-52); ALBUMIN 4.1 g/dL (3.5-5.0); ALKALINE PHOSPHATASE 72 U/L (38-126); ANION GAP 9 (5-19); ASPARTATE AMINO TRANSFERASE 36 U/L (14-36); BILIRUBIN,DIRECT 0.1 mg/dL (0.0-0.4); BILIRUBIN,TOTAL 0.6 mg/dL (0.2-1.3); BLOOD UREA NITROGEN 12 mg/dL (7-20); CALCIUM 8.8 mg/dL (8.4-10.2); CARBON DIOXIDE 29 mmol/L (22-30); CHLORIDE 99 mmol/L (98-107); CREATINE KINASE 468 U/L (30-135); POTASSIUM 3.8 mmol/L (3.6-5.0); SODIUM 136.7 mmol/L (137-145); TOTAL PROTEIN 6.6 g/dL (6.3-8.2)
[2018-04-15 19:35] LABS: CREATINE KINASE MB 1.13 ng/mL (<4.55)
[2018-04-15 19:39] LABS: TROPONIN I 0.688 ng/mL
[2018-04-15] MEDS ORDERED: NORMAL SALINE 1000 ML 1,000 ML IV ONE (20:41)
--- NOTE | 2018-04-15 20:42 | ER Document Report ---
ED General - General Chief Complaint: Chest Pain Stated Complaint: CHEST PAIN Time Seen by Provider: 04/15/18 19:30 Primary Care Provider: JUSTEN PHOENIX PA-C [Primary Care Provider] - Follow up as needed Notes: Patient is a 42-year-old female with a past medical history of atrial fibrillation status post ablation 48 hours ago at [facility] who presents complaining of chest pain, shortness of breath, and fever up to 101.9 F at home. Patient describes the chest pain as a stabbing, aching pain worsened with taking a deep breath. Has not trying to improve her symptoms. Has not contacted her primary care doctor or fish drier regarding today's concerns. Notes that she has had a cough and some mild sore throat. Nausea but no vomiting. No diarrhea. No history of similar symptoms in the past. Denies unilateral leg swelling. No history of DVT or PE. TRAVEL OUTSIDE OF THE [place] IN LAST 30 DAYS: No - Related Data Allergies/Adverse Reactions: aspirin [Aspirin] Allergy (Severe, Verified 09/04/17 23:40) throat closes morphine [Morphine] Allergy (Severe, Verified 09/04/17 23:40) heart races, cannot breath codeine Allergy (Verified 09/04/17 23:40) hydrocodone Allergy (Verified 09/04/17 23:40) nitrofurantoin [From Macrobid] Allergy (Verified 09/04/17 23:40) oxycodone Allergy (Verified 09/04/17 23:40) meperidine HCl [From Demerol] Adverse Reaction (Intermediate, Verified 09/04/17 23:40) nausea, vomiting Penicillins Adverse Reaction (Mild, Verified 09/04/17 23:40) Hives Past Medical History - General Information source: Patient - Social History Smoking Status: Never Smoker Frequency of alcohol use: None Drug Abuse: None Lives with: Family Family History: Reviewed & Not Pertinent - Past Medical History Cardiac Medical History: Reports: Hx Atrial Fibrillation - Chronic, Hx Hypertension Denies: Hx Coronary Artery Disease, Hx Heart Attack Pulmonary Medical History: Denies: Hx Asthma, Hx Bronchitis, Hx COPD, Hx Pneumonia Neurological Medical History: Denies: Hx Cerebrovascular Accident, Hx Seizures Endocrine Medical History: Reports: Hx Diabetes Mellitus Type 2 - diet controlled Renal/ Medical History: Denies: Hx Peritoneal Dialysis Musculoskeletal Medical History: Reports Hx Arthritis - Bilateral knees Past Surgical History: Reports: Hx Dilation and Curettage, Hx Hysterectomy, Hx Oral Surgery - wisdom teeth, Hx Orthopedic Surgery - left elbow and wrist, Other - AV ablation. Denies: Hx Pacemaker - Immunizations Hx Diphtheria, Pertussis, Tetanus Vaccination: Yes Review of Systems - Review of Systems Notes: Constitutional: Positive for fever. HENT: Negative for sore throat. Eyes: Negative for visual changes. Cardiovascular: Positive for chest pain. Respiratory: Positive for shortness of breath. Gastrointestinal: Negative for abdominal pain, vomiting or diarrhea. Genitourinary: Negative for dysuria. Musculoskeletal: Negative for back pain. Skin: Negative for rash. Neurological: Negative for headaches, weakness or numbness. 10 point ROS negative except as marked above and in HPI. Physical Exam - Vital signs Vitals: Resp Pulse Ox 27 H 93 04/15/18 18:42 04/15/18 18:42 Interpretation: Tachycardic, Tachypneic Notes: PHYSICAL EXAMINATION: GENERAL: Appears moderately uncomfortable but in no acute distress HEAD: Atraumatic, normocephalic. EYES: Pupils equal round and reactive to light, extraocular movements intact, sclera anicteric, conjunctiva are normal. ENT: nares patent, oropharynx clear without exudates. Moderately dry mucous membranes. NECK: Normal range of motion, supple without lymphadenopathy LUNGS: Breath sounds clear to auscultation bilaterally and equal. No wheezes rales or rhonchi. HEART: Regular tachycardia without murmurs ABDOMEN: Soft, nontender, normoactive bowel sounds. No guarding, no rebound. No masses appreciated. EXTREMITIES: Normal range of motion, no pitting or edema. No cyanosis. NEUROLOGICAL: No focal neurological deficits. Moves all extremities spontaneously and on command. PSYCH: Normal mood, normal affect. SKIN: Warm, Dry, normal turgor, no rashes or lesions noted. Course - Re-evaluation Re-evalutation: 04/15/18 20:40 Patient is a 42-year-old female with a history of atrial fibrillation status post second ablation 2 days ago at [facility] presenting with fever up to 101.9 F, pleuritic chest pain and shortness of breath. The patient is noted to be moderately hypoxic on room air and does not normally oxygen dependency. Bedside echocardiogram without any evidence of pericardial effusion. Patient has had cough and sore throat. Presentation is most worrisome for an acute pulmonary embolus as patient has fever, pleuritic chest pain and multiple risk factors including recent surgical procedure as well as continued estrogen use. The patient is so high risk, Wells score is 6, will proceed directly to CTA of the chest. Chest x-ray the evidence of acute pneumonia. Influenza would be an alternative consideration as would a pneumonia. CTA will likewise help clarify any underlying pneumonia not visualized on chest x-ray. Formal influenza testing pending. Troponin is noted to be elevated at 0.699 which could be secondary to the recent ablation. Will recheck a second troponin. Patient will receive pain medication, IV fluids and will be reassessed. 04/15/18 23:12 CT of the chest without evidence of an acute PE. Reading of possible superimposed pneumonia at the bibasilar regions where there is noted chronic scarring. Given patient's cough and fever will empirically cover with doxy cycline. Repeat troponin has down trended slightly. I did discuss this case with the fish drier general operations manager at [facility] who states that these troponin elevations are common in this context. He suspects the patient may be developing a postprocedural pericarditis. Agrees with management and plan. Has asked the patient contact the office for follow-up on Wednesday. I have related these findings to the patient. She is in agreement with plan. On reassessment vitals are within acceptable limits saturating 92-94% on room air, heart rate 91, blood pressure within acceptable limits. At this time will discharge with return precautions and follow-up recommendations. Verbal discharge instructions given a the bedside and opportunity for questions given. Medication warnings reviewed. Patient is in agreement with this plan and has verbalized understanding of return precautions and the need for primary care follow-up in the next 24-72 hours. - Vital Signs Vital signs: Temp Pulse Resp BP Pulse Ox 98.7 F 17 122/84 96 04/15/18 23:52 04/15/18 23:49 04/15/18 23:49 04/15/18 23:49 - Laboratory Result Diagrams: 04/15/18 18:50 04/15/18 18:50 Laboratory results interpreted by me: 04/15/18 04/15/18 18:50 18:50 WBC 13.5 H Hgb 11.8 L Hct 35.0 L RDW 14.5 H Seg Neutrophils % 79.3 H Lymphocytes % 7.4 L Absolute Neutrophils 10.7 H Sodium 136.7 L Glucose 115 H Creatine Kinase 468 H - Diagnostic Test Radiology reviewed: Image reviewed, Reports reviewed Radiology results interpreted by me: 04/15/18 23:14 Chest x-ray: No acute infiltrate - EKG Interpretation by Me Additional EKG results interpreted by me: 04/15/18 23:15 Sinus rhythm, rate 93. No ST elevations or depressions. QTC 423. Discharge - Discharge Clinical Impression: Pleuritic pain, Shortness of breath Fever Qualifiers: Fever type: unspecified Qualified Code(s): R50.9 - Fever, unspecified Condition: Stable Disposition: HOME, SELF-CARE Additional Instructions: The CT scan of your chest does not show any evidence of a blood clot. The ultrasound of your heart does not show any fluid around your heart. Your flu test is normal. Your being started on antibiotics to cover for the possibility of a pneumonia. Please take until completed. I have discussed her case with the cocoa press operator on-call at [facility]. He has asked that you contact the [facility] office covering for Dr. Goodrich on Wednesday. He agrees with our plan to treat you with symptomatic care and empiric antibiotics until that time. Please be sure to be taking the Carafate, Protonix and all other medications as prescribed [facility] Return if you develop worsening pain, increased shortness of breath, pass out, begin having persistent vomiting, or have any other symptoms that are worrisome to you. Prescriptions: Doxycycline Hyclate 100 mg PO BID #14 capsule Referrals: JUSTEN PHOENIX PA-C [Primary Care Provider] - Follow up as needed
[2018-04-15] MEDS: FENTANYL CITRATE INJ/PF 100 MCG/2 ML AMPUL IV PRN ×2 (21:32→23:42)
[2018-04-15 21:33] LABS: A TYPE INFLUENZA AG NEGATIVE (NEGATIVE); B INFLUENZA AG NEGATIVE (NEGATIVE)
--- NOTE | 2018-04-15 22:40 | RADIOLOGY REPORT (SQ) ---
CT CHEST ANGIOGRAPHY WITHOUT THEN WITH IV CONTRAST HISTORY: Shortness of breath. COMPARISON: None. TECHNIQUE: CT angiogram of the chest with IV contrast. 3-D MIP images were obtained in coronal and sagittal reconstructions. This exam was performed according to our departmental dose-optimization program, which includes automated exposure control, adjustment of the mA and/or kV according to patient size and/or use of iterative reconstruction technique. FINDINGS: No filling defects are seen in the pulmonary trunk or the left and right main pulmonary artery. There is limited evaluation of the segmental branches due to motion artifact and suboptimal bolus timing. No thoracic aortic aneurysm or dissection is seen. The thyroid gland is normal. No mediastinal or hilar adenopathy. The heart size is mildly enlarged without pericardial effusion. There are scattered areas of atelectasis/scarring in the right middle lobe and bilateral lower lobes. Query trace right pleural effusion. No left pleural effusion or pneumothorax. The visualized upper abdomen demonstrates no acute findings. The osseous structures are intact. IMPRESSION: 1. No central pulmonary embolism. 2. Scattered areas of atelectasis/scarring in both lower lobes. Correlate clinically to exclude superimposed pneumonia.
[2018-04-15] MEDS ORDERED: DOXYCYCLINE HYCLATE 100 MG TABLET PO ONE (23:12)
[2018-04-15 23:50] VITALS: BP 122/84
--- NOTE | 2018-04-16 08:50 | EKG REPORT ---
SEVERITY:- BORDERLINE ECG - SINUS RHYTHM BORDERLINE R WAVE PROGRESSION, ANTERIOR LEADS BORDERLINE T ABNORMALITIES, INFERIOR LEADS : Confirmed by: Gage Pearson MD 16-Apr-2018 08:48:40
== END 2018-04-16 00:15 | disposition home or self-care (01) ==
LOC: ER 18:18
DX: R07.81 Pleurodynia (principal); R06.02 Shortness of breath; R50.9 Fever, unspecified; I48.91 Unspecified atrial fibrillation; I10 Essential (primary) hypertension; E11.9 Type 2 diabetes mellitus without complications; Z88.6 Allergy status to analgesic agent; Z88.0 Allergy status to penicillin; Z90.710 Acquired absence of both cervix and uterus
CPT/HCPCS: 93005; 99285; 96361; 96374; 36415; 82553; 82550; 85025; 80053; 84484; 87804; 71045; 71275; 93010; J3010; J7030

== ENCOUNTER 2018-08-04 22:28 | Observation (INO) | payer OTHER ==
[2018-08-05] MEDS ORDERED: MORPHINE SULFATE IR 15 MG TABLET PO ONE (00:33)
[2018-08-05] MEDS ORDERED: PROMETHAZINE HCL 25 MG TABLET PO ONE (00:33)
--- NOTE | 2018-08-05 00:35 | ER Document Report ---
ED Medical Screen (RME) - General Chief Complaint: Flank Pain Stated Complaint: BACK PAIN Time Seen by Provider: 08/05/18 00:32 Primary Care Provider: JUSTEN PHOENIX PA-C [Primary Care Provider] - Follow up as needed Notes: 42-year-old female, chief complaint of right flank pain. She states that she has had symptoms of a urinary tract infection for about a week, this worsened and today she started getting sharp right flank pain and nausea. Denies fever. Denies vomiting. Denies history of kidney stones. TRAVEL OUTSIDE OF THE [place] IN LAST 30 DAYS: No - Related Data Allergies/Adverse Reactions: aspirin [Aspirin] Allergy (Severe, Verified 09/04/17 23:40) throat closes codeine Allergy (Verified 09/04/17 23:40) doxycycline Allergy (Verified 08/04/18 22:31) hydrocodone Allergy (Verified 09/04/17 23:40) nitrofurantoin [From Macrobid] Allergy (Verified 09/04/17 23:40) oxycodone Allergy (Verified 09/04/17 23:40) meperidine HCl [From Demerol] Adverse Reaction (Intermediate, Verified 09/04/17 23:40) nausea, vomiting Penicillins Adverse Reaction (Mild, Verified 09/04/17 23:40) Hives Past Medical History - Past Medical History Cardiac Medical History: Reports: Hx Atrial Fibrillation - Chronic, Hx Hypertension Denies: Hx Coronary Artery Disease, Hx Heart Attack Pulmonary Medical History: Denies: Hx Asthma, Hx Bronchitis, Hx COPD, Hx Pneumonia Neurological Medical History: Denies: Hx Cerebrovascular Accident, Hx Seizures Endocrine Medical History: Reports: Hx Diabetes Mellitus Type 2 - diet controlled Renal/ Medical History: Denies: Hx Peritoneal Dialysis Musculoskeltal Medical History: Reports Hx Arthritis - Bilateral knees Past Surgical History: Reports: Hx Cardiac Surgery - ablation x2, Hx Dilation and Curettage, Hx Hysterectomy, Hx Oral Surgery - wisdom teeth, Hx Orthopedic Surgery - left elbow and wrist, Other - AV ablation. Denies: Hx Pacemaker - Immunizations Hx Diphtheria, Pertussis, Tetanus Vaccination: Yes Physical Exam - Vital signs Vitals: Temp Pulse Resp BP Pulse Ox 98.7 F 85 22 H 138/83 H 97 08/04/18 23:22 08/04/18 23:22 08/04/18 23:22 08/04/18 23:22 08/04/18 23:22 - General In distress: Mild - Patient appears uncomfortable but not in severe distress - Abdominal Tenderness: Nontender. No: Guarding - Back Back: CVA tenderness - Right CVA tenderness, left unremarkable Course - Re-evaluation Re-evalutation: I have greeted and performed a rapid initial assessment of this patient. A comprehensive ED assessment and evaluation of the patient, analysis of test results and completion of the medical decision making process will be conducted by additional ED providers. - Vital Signs Vital signs: Temp Pulse Resp BP Pulse Ox 98.7 F 85 22 H 138/83 H 97 08/04/18 23:22 08/04/18 23:22 08/04/18 23:22 08/04/18 23:22 08/04/18 23:22 Doctor's Discharge - Discharge Referrals: JUSTEN PHOENIX PA-C [Primary Care Provider] - Follow up as needed
[2018-08-05 01:16] LABS: ABSOLUTE BASOPHILS # (AUTO) 0.1 10^3/uL (0.0-0.2); ABSOLUTE EOSINOPHILS # (AUTO) 0.2 10^3/uL (0.0-0.6); ABSOLUTE LYMPHOCYTES (AUTO) 1.7 10^3/uL (0.5-4.7); ABSOLUTE MONOCYTES (AUTO) 0.5 10^3/uL (0.1-1.4); ABSOLUTE NEUT (AUTO) 5.1 10^3/uL (1.7-8.2); BASOPHILS % (AUTO) 1.3 % (0-2); EOSINOPHILS % (AUTO) 2.2 % (0-6); HEMATOCRIT 38.6 % (36.0-47.0); HEMOGLOBIN 12.9 g/dL (12.0-15.5); LYMPHOCYTES % (AUTO) 22.7 % (13-45); MEAN CORPUSCULAR HEMOGLOBIN 27.3 pg (27.0-33.4); MEAN CORPUSCULAR HGB CONC 33.5 g/dL (32.0-36.0); MEAN CORPUSCULAR VOLUME 82 fl (80-97); MONOCYTES % (AUTO) 7.1 % (3-13); PLATELET COUNT 278 10^3/uL (150-450); RED BLOOD COUNT 4.73 10^6/uL (3.72-5.28); RED CELL DISTRIBUTION WIDTH 14.3 % (11.5-14.0); SEGMENTED NEUTROPHILS % (AUTO) 66.7 % (42-78); TOTAL CELLS COUNTED % (AUTO) 100 %; WHITE BLOOD COUNT 7.6 10^3/uL (4.0-10.5)
[2018-08-05 01:36] LABS: ALANINE AMINOTRANSFERASE 29 U/L (9-52); ALBUMIN 4.2 g/dL (3.5-5.0); ALKALINE PHOSPHATASE 108 U/L (38-126); ANION GAP 8 (5-19); ASPARTATE AMINO TRANSFERASE 24 U/L (14-36); BILIRUBIN,DIRECT 0.2 mg/dL (0.0-0.4); BILIRUBIN,TOTAL 0.3 mg/dL (0.2-1.3); BLOOD UREA NITROGEN 12 mg/dL (7-20); CALCIUM 9.3 mg/dL (8.4-10.2); CARBON DIOXIDE 30 mmol/L (22-30); CHLORIDE 101 mmol/L (98-107); GLUCOSE 97 mg/dL (75-110); POTASSIUM 3.8 mmol/L (3.6-5.0); SODIUM 138.6 mmol/L (137-145); TOTAL PROTEIN 7.2 g/dL (6.3-8.2)
[2018-08-05 02:53] LABS: APPEARANCE,URINE CLEAR; BILIRUBIN,URINE NEGATIVE (NEGATIVE); COLOR,URINE STRAW; GLUCOSE, URINE NEGATIVE (NEGATIVE); KETONES,URINE NEGATIVE (NEGATIVE); LEUKOCYTE ESTERASE,URINE NEGATIVE (NEGATIVE); NITRITE,URINE NEGATIVE (NEGATIVE); PROTEIN,URINE NEGATIVE (NEGATIVE); URINE SPECIFIC GRAVITY 1.011; UROBILINOGEN,URINE NEGATIVE mg/dL (<2.0)
--- NOTE | 2018-08-05 04:14 | RADIOLOGY REPORT (SQ) ---
EXAM DESCRIPTION: CT ABDOMEN PELVIS WITHOUT IV CONTRAST COMPLETED DATE/TME: 08/05/2018 03:30 CLINICAL HISTORY: 42 years, Female, right flank pain COMPARISON: None. TECHNIQUE: Axial CT images of the abdomen and pelvis were obtained without IV contrast. Sagittal and coronal reformats were performed. [facility] [id number] Images stored on PACS. All CT scanners at this facility use dose modulation, iterative reconstruction, and/or weight based dosing when appropriate to reduce radiation dose to as low as reasonably achievable (ALARA). [facility]: Dose Right [facility]: CareDose [facility]: Dose Right [facility]: Teradose 4D [facility]: Smart CBA PHARMA LIMITATIONS: None. FINDINGS: The lung bases are clear. The liver, gallbladder, pancreas, spleen, and adrenal glands are unremarkable. There is no evidence of urolithiasis or hydronephrosis bilaterally. There is no intraperitoneal free air or fluid. There is no lymphadenopathy. The stomach and small bowel appear unremarkable. The appendix measures up to 0.8 cm in diameter with no definite surrounding inflammatory changes. The colon is unremarkable. Hysterectomy. The urinary bladder is unremarkable. There are no lytic or blastic bone lesions. IMPRESSION: Mildly dilated appendix with no definite surrounding inflammatory changes. This may be due to early acute uncomplicated appendicitis. No evidence of urolithiasis or hydronephrosis. TECHNICAL DOCUMENTATION: Quality ID # [id number]: Final reports with documentation of one or more dose reduction techniques (e.g., Automated exposure control, adjustment of the mA and/or kV according to patient size, use of iterative reconstruction technique) copyright 2010 [employer]- All Rights Reserved
[2018-08-05] MEDS ORDERED: NORMAL SALINE 1000 ML 1,000 ML IV ONE (04:37)
--- NOTE | 2018-08-05 04:46 | ER Document Report ---
ED GI/ - General Chief Complaint: Flank Pain Stated Complaint: BACK PAIN Time Seen by Provider: 08/05/18 00:32 Notes: Patient is a 42-year-old female, chief complaint of right flank pain. Pain does also radiate into right lower quadrant. She states that she has had possible symptoms of a urinary tract infection for about a week, and today she started getting sharp right flank pain, abdominal pain, and nausea. She has not had anything to eat since noon. Denies fever. Denies vomiting. Denies history of kidney stones. She has had a total hysterectomy and has a history of cardiac ablation. TRAVEL OUTSIDE OF THE [place] IN LAST 30 DAYS: No - Related Data Allergies/Adverse Reactions: aspirin [Aspirin] Allergy (Severe, Verified 09/04/17 23:40) throat closes codeine Allergy (Verified 09/04/17 23:40) doxycycline Allergy (Verified 08/04/18 22:31) hydrocodone Allergy (Verified 09/04/17 23:40) nitrofurantoin [From Macrobid] Allergy (Verified 09/04/17 23:40) oxycodone Allergy (Verified 09/04/17 23:40) meperidine HCl [From Demerol] Adverse Reaction (Intermediate, Verified 09/04/17 23:40) nausea, vomiting Penicillins Adverse Reaction (Mild, Verified 09/04/17 23:40) Hives Past Medical History - General Information source: Patient - Social History Smoking Status: Never Smoker Frequency of alcohol use: None Drug Abuse: None Lives with: Family Family History: Reviewed & Not Pertinent - Past Medical History Cardiac Medical History: Reports: Hx Atrial Fibrillation - Chronic, Hx Hypertension Denies: Hx Coronary Artery Disease, Hx Heart Attack Pulmonary Medical History: Denies: Hx Asthma, Hx Bronchitis, Hx COPD, Hx Pneumonia Neurological Medical History: Denies: Hx Cerebrovascular Accident, Hx Seizures Endocrine Medical History: Reports: Hx Diabetes Mellitus Type 2 - diet controlled Renal/ Medical History: Denies: Hx Peritoneal Dialysis Musculoskeletal Medical History: Reports Hx Arthritis - Bilateral knees Past Surgical History: Reports: Hx Cardiac Surgery - ablation x2, Hx Dilation and Curettage, Hx Hysterectomy, Hx Oral Surgery - wisdom teeth, Hx Orthopedic Surgery - left elbow and wrist, Other - AV ablation. Denies: Hx Pacemaker - Immunizations Hx Diphtheria, Pertussis, Tetanus Vaccination: Yes Review of Systems - Review of Systems Constitutional: No symptoms reported EENT: No symptoms reported Cardiovascular: No symptoms reported Respiratory: No symptoms reported Gastrointestinal: See HPI Genitourinary: See HPI Female Genitourinary: No symptoms reported Musculoskeletal: No symptoms reported Skin: No symptoms reported Hematologic/Lymphatic: No symptoms reported Neurological/Psychological: No symptoms reported Physical Exam - Vital signs Vitals: Temp Pulse Resp BP Pulse Ox 98.7 F 85 22 H 138/83 H 97 08/04/18 23:22 08/04/18 23:22 08/04/18 23:22 08/04/18 23:22 08/04/18 23:22 - Notes Notes: GENERAL: Patient appears to be uncomfortable but not in severe distress HEAD: Normocephalic, atraumatic. EYES: Pupils equal, round, and reactive to light. Extraocular movements intact. ENT: Oral mucosa moist, tongue midline. Oropharynx unremarkable. Airway patent. Nares patent, no nasal septal hematoma, TM's intact. NECK: Full range of motion. Supple. Trachea midline. LUNGS: Clear to auscultation bilaterally, no wheezes, rales, or rhonchi. No res piratory distress. HEART: Regular rate and rhythm. No murmur ABDOMEN: Patient actually has right lower quadrant tenderness. This is not severe but it is specific to the right lower quadrant with some McBurney's point tenderness. No rebound tenderness. Remaining abdomen unremarkable. GENITOURINARY: Deferred EXTREMITIES: Moves all 4 extremities spontaneously. No edema, normal radial and dorsalis pedis pulses bilaterally. No cyanosis. BACK: no cervical, thoracic, lumbar midline tenderness. No saddle anesthesia, normal distal neurovascular exam. There does seem to be some right-sided CVA tenderness. NEUROLOGICAL: Alert and oriented x3. Normal speech. [cranial nerves II through XII grossly intact]. PSYCH: Normal affect, normal mood. SKIN: Warm, dry, normal turgor. No rashes or lesions noted. Course - Re-evaluation Re-evalutation: I saw this patient in triage. I did review her labs, CBC, chemistry, urinalysis unremarkable. Does not appear to have a urinary tract infection, no hematuria. She does have flank pain, she is having some abdominal pain as well, I still have not been able to get the patient in the room for a full exam because of long bed delay with very busy ER. Discussed CAT scan with patient because of her severe symptoms, does not appear to be just musculoskeletal. Will perform CAT scan for possible obstructing stone or other etiology. CAT scan was performed with out contrast for possible stone, however this shows dilated appendix without surrounding inflammatory changes. Patient has already had a total hysterectomy. Patient has had symptoms since approximately noon, pain is mainly in the right flank but she does have right lower quadrant tenderness now that I am able to examine her abdomen in the room. I suspect retrocecal appendix. I discussed the patient, I will contact the surgeon. 08/05/18 04:[address] Anderson, he request the patient be kept n.p.o., he will come e valuate the patient. Dr. Anderson accepted patient for admission. - Vital Signs Vital signs: Temp Pulse Resp BP Pulse Ox 98.7 F 77 23 H 133/91 H 98 08/04/18 23:22 08/05/18 05:56 08/05/18 05:56 08/05/18 05:56 08/05/18 05:56 - Laboratory Result Diagrams: 08/05/18 01:05 08/05/18 01:05 Laboratory results interpreted by me: 08/05/18 01:05 RDW 14.3 H Discharge - Discharge Clinical Impression: Right lower quadrant pain, Right flank pain Condition: Stable Disposition: ADMITTED OBSERVATION Admitting Provider: Surgicalist Unit Admitted: Surgical Floor
[2018-08-05] MEDS ORDERED: DEXTROSE 5%-LACTATED RINGERS 1,000 ML IV PRN (05:30)
--- NOTE | 2018-08-05 05:30 | PDOC H&P ---
History of Present Illness Admission Date/PCP: JUSTEN PHOENIX PA-C Patient complains of: RLQ pains History of Present Illness: UMAIR MICHELE is a 42 year old female c/o right flank pains radiating to the front about noontime yesterday. This was associated with nausea.No diarrhea nor costipation.Feels cold but no fever or chills. No dysuria. CT scan showed dilated appendix possibly early appendicitis. No kidney stones and urine is normal. Had Hysterectomy and oophorectomy. Past Medical History Cardiac Medical History: Reports: Atrial Fibrillation - Chronic, Hypertension Denies: Coronary Artery Disease, Myocardial Infarction Pulmonary Medical History: Denies: Asthma, Bronchitis, Chronic Obstructive Pulmonary Disease (COPD), Pneumonia Neurological Medical History: Denies: Seizures Endocrine Medical History: Reports: Diabetes Mellitus Type 2 - diet controlled Musculoskeltal Medical History: Reports: Arthritis - Bilateral knees Hematology: Reports: Anemia - History of. Past Surgical History Past Surgical History: Reports: Hysterectomy, Orthopedic Surgery - left elbow and wrist, Other - AV ablation Denies: Pacemaker Social History Smoking Status: Never Smoker Frequency of Alcohol Use: None Hx Recreational Drug Use: No Hx Prescription Drug Abuse: No Family History Family History: Reviewed & Not Pertinent Parental Family History Reviewed: Yes - Diabetes both parents Children Family History Reviewed: No Sibling(s) Family History Reviewed.: No Medication/Allergy Home Medications: Epinephrine [Epipen 2-Fernando] 0.3 mg IM DAILYP PRN 10/21/17 Esomeprazole Magnesium [Nexium] 20 mg PO QHS 10/21/17 Estradiol [Estrace] 1 mg PO DAILY 10/21/17 Hydroxyzine HCl [Atarax 25 mg Tablet] 25 mg PO Q8 10/21/17 Ibuprofen [Motrin 800 mg Tablet] 800 mg PO Q8HP PRN 10/21/17 Levocetirizine Dihydrochloride [Xyzal] 5 mg PO QHS 10/21/17 Lorazepam [Ativan 0.5 mg Tablet] 0.5 mg PO Q12HP PRN 10/21/17 Trazodone HCl [Desyrel 50 mg Tablet] 50 mg PO QHS 10/21/17 Apixaban [Eliquis 5 mg Tablet] 5 mg PO BID #60 tablet 10/22/17 Cefuroxime Axetil [Ceftin 250 mg Tablet] 500 mg PO BID #20 tablet 10/22/17 Guaifenesin [Mucinex Sr 600 mg Tablet.sa] 1,200 mg PO Q12 tablet.sa 10/22/17 Sodium Chloride [[place] Nasal [place] 44 ml Bottle] 1 spray NASL ACHS bottle 10/22/17 Diltiazem HCl [Cardizem Cd 180 mg Capsule] 180 mg PO Q12 #60 capsule.cr 10/23/17 Doxycycline Hyclate 100 mg PO BID #14 capsule 04/15/18 Allergies/Adverse Reactions: aspirin [Aspirin] Allergy (Severe, Verified 09/04/17 23:40) throat closes codeine Allergy (Verified 09/04/17 23:40) doxycycline Allergy (Verified 08/04/18 22:31) hydrocodone Allergy (Verified 09/04/17 23:40) nitrofurantoin [From Macrobid] Allergy (Verified 09/04/17 23:40) oxycodone Allergy (Verified 09/04/17 23:40) meperidine HCl [From Demerol] Adverse Reaction (Intermediate, Verified 09/04/17 23:40) nausea, vomiting Penicillins Adverse Reaction (Mild, Verified 09/04/17 23:40) Hives Review of Systems Constitutional: PRESENT: as per HPI Physical Exam Vital Signs: Temp Pulse Resp BP Pulse Ox 98.7 F 85 22 H 138/83 H 97 08/04/18 23:22 08/04/18 23:22 08/04/18 23:22 08/04/18 23:22 08/04/18 23:22 Intake & Output 08/03/18 08/04/18 08/05/18 06:59 06:59 06:59 Weight 117.1 kg General appearance: PRESENT: mild distress Head exam: PRESENT: atraumatic Eye exam: PRESENT: conjunctiva pink Mouth exam: PRESENT: moist Neck exam: PRESENT: full ROM Cardiovascular exam: PRESENT: RRR Pulses: PRESENT: normal radial pulses Vascular exam: PRESENT: normal capillary refill GI/Abdominal exam: PRESENT: soft, tenderness - RLQ. No rebound Rectal exam: PRESENT: deferred Extremities exam: PRESENT: full ROM Musculoskeletal exam: PRESENT: ambulatory Neurological exam: PRESENT: alert, oriented to person, oriented to place, oriented to time, oriented to situation Psychiatric exam: PRESENT: appropriate affect Skin exam: PRESENT: normal color, warm Results Laboratory Results: 08/05/18 01:05 08/05/18 01:05 08/05/18 08/05/18 08/05/18 01:05 01:05 02:16 WBC 7.6 RBC 4.73 Hgb 12.9 Hct 38.6 MCV 82 MCH 27.3 MCHC 33.5 RDW 14.3 H Plt Count 278 Seg Neutrophils % 66.7 Lymphocytes % 22.7 Monocytes % 7.1 Eosinophils % 2.2 Basophils % 1.3 Absolute Neutrophils 5.1 Absolute Lymphocytes 1.7 Absolute Monocytes 0.5 Absolute Eosinophils 0.2 Absolute Basophils 0.1 Sodium 138.6 Potassium 3.8 Chloride 101 Carbon Dioxide 30 Anion Gap 8 BUN 12 Creatinine 0.74 Est GFR ( Amer) > 60 Est GFR (Non-Af Amer) > 60 Glucose 97 Calcium 9.3 Total Bilirubin 0.3 AST 24 ALT 29 Alkaline Phosphatase 108 Total Protein 7.2 Albumin 4.2 Urine Color STRAW Urine Appearance CLEAR Urine pH 6.0 Ur Specific [place] 1.011 Urine Protein NEGATIVE Urine Glucose (UA) NEGATIVE Urine Ketones NEGATIVE Urine Blood NEGATIVE Urine Nitrite NEGATIVE Ur Leukocyte Esterase NEGATIVE Urine WBC (Auto) 0 Urine RBC (Auto) 0 Impressions: Abdomen/Pelvis CT 08/05/18 03:30 IMPRESSION: Mildly dilated appendix with no definite surrounding inflammatory changes. This may be due to early acute uncomplicated appendicitis. No evidence of urolithiasis or hydronephrosis. TECHNICAL DOCUMENTATION: Quality ID # [id number]: Final reports with documentation of one or more dose reduction techniques (e.g., Automated exposure control, adjustment of the mA and/or kV according to patient size, use of iterative reconstruction technique) copyright 2011 [employer]- All Rights Reserved Assessment & Plan - Diagnosis (1) Early acute appendicitis Is this a current diagnosis for this admission?: Yes (2) Morbid obesity Is this a current diagnosis for this admission?: Yes - Time Time Spent: 30 to 50 Minutes - Inpatient Certification Medical Necessity: Need For IV Fluids, Need for IV Antibiotics, Need for Surgery - Plan Summary Plan Summary: IV antibiotics For laparoscopic appendectomy
[2018-08-05] MEDS ORDERED: MORPHINE SULFATE 10 MG/ML INJ IV ONE (05:34)
[2018-08-05] MEDS ORDERED: ONDANSETRON HCL INJ/PF 4 MG/2 ML SDV IV ONE (05:34)
[2018-08-05] MEDS ORDERED: MORPHINE SULFATE 10 MG/ML INJ IV PRN (05:36)
[2018-08-05] MEDS ORDERED: PIPERACILLIN/TAZOBACTAM 3.375 GM VIAL IV SCH (05:45)
[2018-08-05] MEDS ORDERED: PIPERACILLIN/TAZOBACTAM 3.375 GM VIAL IV ONE (06:30)
[2018-08-05] MEDS ORDERED: PROPOFOL INJ 200 MG/20 ML VIAL IV ONE (10:09)
[2018-08-05] MEDS ORDERED: MIDAZOLAM 2 MG/2 ML INJ ONE (10:09)
[2018-08-05] MEDS ORDERED: FENTANYL CITRATE INJ/PF 100 MCG/2 ML AMPUL ONE (10:09)
[2018-08-05] MEDS ORDERED: ACETAMINOPHEN 1,000 MG/100 ML RTUPB IV ONE (10:10)
[2018-08-05] MEDS ORDERED: BUPIVACAINE HCL 0.5%-EPI 1:200000 INJ/PF 30 ML VIAL ONE (10:19)
[2018-08-05] MEDS ORDERED: DEXMEDETOMIDINE INJ 80 MCG/20 ML VIAL IV ONE (10:31)
[2018-08-05] MEDS ORDERED: SUGAMMADEX SODIUM 200 MG/2 ML SDV IV ONE (11:20)
--- NOTE | 2018-08-05 11:55 | Operative Report ---
Nonrecallable Operative Report DATE OF SURGERY: 08/05/18 PREOPERATIVE DIAGNOSIS: appendicitis POSTOPERATIVE DIAGNOSIS: appendicitis OPERATION: laparoscopic appendectomy SURGEON: XU LILLY ANESTHESIA: GA TISSUE REMOVED OR ALTERED: appendix COMPLICATIONS: none ESTIMATED BLOOD LOSS: 5cc INTRAOPERATIVE FINDINGS: acute appendicitis PROCEDURE: see dictation
[2018-08-05] MEDS ORDERED: PROMETHAZINE HCL INJ 25 MG/1 ML VIAL ONE (11:58)
[2018-08-05] MEDS ORDERED: METOCLOPRAMIDE HCL INJ/PF 10 MG/2 ML SDV ONE (12:00)
[2018-08-05] MEDS: FENTANYL CITRATE INJ/PF 100 MCG/2 ML AMPUL ONE ×2 (12:00→12:08)
[2018-08-05] MEDS ORDERED: SCOPOLAMINE HYDROBROMIDE 1.5 MG PATCH.TD72 ONE (12:00)
--- NOTE | 2018-08-05 12:01 | Discharge Summary ---
Discharge Summary (SDC) - Discharge Final Diagnosis: acute appendicitis Date of Surgery: 08/05/18 Condition: Good Treatment or Instructions: light diet tonight ok to shower tomorrow ok to get steristrips wet, no soap pat dry. no wt greater than 10lbs for 2 wks f/u with surgery clinic in 7-10 days. Referrals: JUSTEN PHOENIX PA-C [Primary Care Provider] - Follow up as needed Discharge Diet: As Tolerated Discharge Activity: Activity As Tolerated, No Lifting Over 10 Pounds Report the Following to Your Physician Immediately: Shortness of Breath, Vomiting, Fever over 101 Degrees, Unusual Bleeding
[2018-08-05] MEDS ORDERED: HYDROMORPHONE HCL INJ/PF 2 MG/ML AMPULE ONE (12:16)
[2018-08-05] MEDS ORDERED: PROMETHAZINE HCL INJ 25 MG/1 ML VIAL IV PRN ×2 (12:17)
[2018-08-05] MEDS ORDERED: MEPERIDINE HCL/PF INJ 25 MG/1 ML DISP.SYRIN IV PRN (12:17)
[2018-08-05] MEDS ORDERED: DIPHENHYDRAMINE HCL 50 MG/ML VIAL IV PRN (12:17)
[2018-08-05] MEDS ORDERED: ONDANSETRON HCL INJ/PF 4 MG/2 ML SDV IV PRN (12:17)
[2018-08-05] MEDS ORDERED: FENTANYL CITRATE INJ/PF 100 MCG/2 ML AMPUL IV PRN ×3 (12:17)
--- NOTE | 2018-08-05 14:14 | OPERATIVE REPORT E ---
Operative Report NAME: UMAIR MICHELE : 1975 AGE: 42Y DATE OF SURGERY: 08/05/2018 ROOM: 533 PREOPERATIVE DIAGNOSIS: Acute appendicitis. POSTOPERATIVE DIAGNOSIS: Acute appendicitis. OPERATION: Laparoscopic appendectomy. SURGEON: XU LILLY M.D. PROCEDURE: The patient was brought to the operating room in awake, alert, and stable condition, placed on the operating room table in supine position, induced under general anesthesia and intubated. The abdomen was prepped and draped in the usual sterile manner for the procedure. A Veress needle was placed into the umbilicus and the abdomen was insufflated with 6 L of CO2 gas. An infraumbilical 5 mm incision was made with a 15 blade and a 5 mm port placed into the abdominal cavity. Intra-abdominal visualization revealed no evidence of a Veress needle or trocar injury. A left lower quadrant 10 mm port placed under direct vision and a suprapubic 5 mm port under direct vision. The appendix was identified. It was noted to be retrocecal. It was mobilized from the posterior portion of the cecum with Bovie cautery to incise the peritoneum in which it was mobilized. We came across the mesoappendix with 1 fire of the endo JOSE GUADALUPE stapler with a white load and then came across the base of the appendix on the cecum with 1 firing of the endo JOSE GUADALUPE stapler with a blue load. The appendix was noted to be acute. The appendix was then placed in an Endo bag and removed through the left lower quadrant port site. The left lower quadrant incision was then closed with 0 Vicryl in the fascia, and then after irrigation of the abdominal cavity and making sure hemostasis was intact, we reduced the pneumoperitoneum and then removed the ports. We then closed the skin incisions with intracuticular 4-0 Biosyn and Steri-Strips to complete the procedure. Estimated blood loss less than 5 mL. Sponge and needle counts correct x2. The patient was awakened in the operating room, extubated, and transferred to recovery in stable condition. No complications. DICTATING PHYSICIAN: XU LILLY M.D. [id number] PHY#: [id number] ID: [id number] JOB#: [id number] ACCT: [id number] cc:XU LILLY M.D. >
[2018-08-05] MEDS ORDERED: OXYCODONE-ACETAMINOPHEN 5-325 MG TABLET PO PRN (15:05)
[2018-08-05 15:15] VITALS: BP 132/85
[2018-08-05] MEDS ORDERED: LIDOCAINE 2% INJ-PF (20 MG/ML) 2 ML AMPUL ONE (21:11)
[2018-08-05] MEDS ORDERED: SUCCINYLCHOLINE CHLORIDE INJ 200 MG/10 ML VIAL ONE (21:11)
[2018-08-05] MEDS ORDERED: ROCURONIUM BROMIDE INJ 50 MG/5 ML VIAL IV ONE (21:11)
== END 2018-08-05 16:29 | disposition home or self-care (01) ==
LOC: ER 22:28 → EH 08-05 05:42 → 5 08-05 08:02
PROVIDERS: ATTEND Surgery
PROC: 0DTJ4ZZ Resection of Appendix, Percutaneous Endoscopic Approach (ICD-10-PCS; principal; 2018-08-05 10:15)
DX: K35.80 Unspecified acute appendicitis (principal); E11.9 Type 2 diabetes mellitus without complications; E66.01 Morbid (severe) obesity due to excess calories; I48.2 Chronic atrial fibrillation; Z90.710 Acquired absence of both cervix and uterus; Z79.899 Other long term (current) drug therapy; Z79.02 Long term (current) use of antithrombotics/antiplatelets
CPT/HCPCS: 99285; 36415; 87086; 85025; 81025; 80053; 81001; 88304 ×2; 74176; 44970; J2250; J3490 ×5; J3010; J2765; J2270; J1170; J2550; J0330; J2405; J7030; J2704; J2543; J0131; 840; G0378

== ENCOUNTER → 2018-11-11 | Outpatient (CLI) | payer OTHER | LOC: OD 11:55 | PROVIDERS: ATTEND Otolaryngology | DX: J30.9 Allergic rhinitis, unspecified (principal) | CPT/HCPCS: 36415; 82785; 86003 ==

== ENCOUNTER → 2018-11-23 | Outpatient (CLI) | payer OTHER ==
--- NOTE | 2018-11-23 08:49 | WOMENS IMAGING REPORT ---
EXAM DESCRIPTION: U/S THYROID/ST TIS HEAD NECK COMPLETED DATE/TIME: 11/23/2018 7:35 am REASON FOR STUDY: E07.89 OTHER SPECIFIED DISORDERS OF THYROID E07.89 OTHER SPECIFIED DISORDERS OF T HYROID COMPARISON: None. TECHNIQUE: Dynamic and static schneider-scale images acquired of the thyroid gland. Selected additional c olor/power Doppler images recorded. All images stored to PACS. LIMITATIONS: None. FINDINGS: RIGHT LOBE: The right lobe of the thyroid measures 4.8 x 1.4 x 1.19 cm. Homogeneous echot exture. No cystic or solid masses. LEFT LOBE: The left lobe of the thyroid gland measures 4.7 x 1.2 x 1.9 cm. Homogeneous echotexture. No cystic or solid masses. ISTHMUS: The isthmus measures 5.7 mm in AP diameter. Homogeneous echotexture. No cystic or solid ma sses. OTHER: No other finding. IMPRESSION: Normal size and echotexture of the thyroid gland. No cystic or solid masses. TECHNICAL DOCUMENTATION: JOB ID: [id number] [employer]- All Rights Reserved Reading location - IP/workstation name: [email or web address]
== END ==
LOC: WI 07:31
PROVIDERS: ATTEND Otolaryngology
DX: E07.89 Other specified disorders of thyroid (principal)
CPT/HCPCS: 76536

== ENCOUNTER 2019-02-06 10:40 | Observation (INO) | payer OTHER ==
[2019-02-06] MEDS ORDERED: TRAMADOL HCL 50 MG TABLET PO ONE (10:57)
[2019-02-06] MEDS ORDERED: ONDANSETRON 4 MG TAB.RAPDIS PO ONE ×2 (10:57→15:14)
[2019-02-06] MEDS ORDERED: NORMAL SALINE 1000 ML 1,000 ML IV ONE ×2 (10:58→15:14)
--- NOTE | 2019-02-06 11:00 | ER Document Report ---
ED Medical Screen (RME) - General Chief Complaint: Hip Pain Stated Complaint: DIZZINESS, RIGHT HIP PAIN Time Seen by Provider: 02/06/19 10:49 Primary Care Provider: JUSTEN HDZ DO [Primary Care Provider] - Follow up as needed Information source: Patient, POA - Power of Block Cuber Notes: Patient presents complaining of right upper quadrant pain that radiates to her right lateral side and flank area. Patient states she has had the pain off and on for the past 5 days. Patient reports nausea and diarrhea, no vomiting. Patient does report some dysuria symptoms. No fever. hx: A. fib, anxiety, hypertension, dyslipidemia, hysterectomy, back surgery I have greeted and performed a rapid initial assessment of this patient. A comprehensive ED assessment and evaluation of the patient, analysis of test results and completion of the medical decision making process will be conducted by additional ED providers. TRAVEL OUTSIDE OF THE [place] IN LAST 30 DAYS: No - Related Data Allergies/Adverse Reactions: aspirin [Aspirin] Allergy (Severe, Verified 08/05/18 07:32) throat closes codeine Allergy (Verified 08/05/18 07:32) doxycycline Allergy (Verified 08/05/18 07:32) hydrocodone Allergy (Verified 08/05/18 07:32) nitrofurantoin [From Macrobid] Allergy (Verified 08/05/18 07:32) oxycodone Allergy (Verified 08/05/18 07:32) meperidine HCl [From Demerol] Adverse Reaction (Intermediate, Verified 08/05/18 07:32) nausea, vomiting Penicillins Adverse Reaction (Mild, Verified 08/05/18 07:32) Hives Past Medical History - Past Medical History Cardiac Medical History: Reports: Hx Atrial Fibrillation - Chronic, Hx Hypertension Denies: Hx Coronary Artery Disease, Hx Heart Attack Pulmonary Medical History: Denies: Hx Asthma, Hx Bronchitis, Hx COPD, Hx Pneumonia Neurological Medical History: Denies: Hx Cerebrovascular Accident, Hx Seizures Endocrine Medical History: Reports: Hx Diabetes Mellitus Type 2 - diet controlled Renal/ Medical History: Denies: Hx Peritoneal Dialysis Musculoskeltal Medical History: Reports Hx Arthritis - Bilateral knees Past Surgical History: Reports: Hx Cardiac Surgery - ablation x2, Hx Dilation and Curettage, Hx Hysterectomy, Hx Oral Surgery - wisdom teeth, Hx Orthopedic Surgery - left elbow and wrist, Other - AV ablation. Denies: Hx Pacemaker - Immunizations Hx Diphtheria, Pertussis, Tetanus Vaccination: Yes Physical Exam - Vital signs Vitals: Temp Pulse Resp BP Pulse Ox 98 F 107 H 18 127/68 H 97 02/06/19 10:45 02/06/19 10:45 02/06/19 10:45 02/06/19 10:45 02/06/19 10:45 - Abdominal Inspection: Morbidly Obese Tenderness: Tender - Right upper quadrant Course - Vital Signs Vital signs: Temp Pulse Resp BP Pulse Ox 98 F 107 H 18 127/68 H 97 02/06/19 10:45 02/06/19 10:45 02/06/19 10:45 02/06/19 10:45 02/06/19 10:45 Doctor's Discharge - Discharge Referrals: JUSTEN HDZ DO [Primary Care Provider] - Follow up as needed
[2019-02-06 11:37] LABS: ABSOLUTE BASOPHILS # (AUTO) 0.1 10^3/uL (0.0-0.2); ABSOLUTE EOSINOPHILS # (AUTO) 0.1 10^3/uL (0.0-0.6); ABSOLUTE LYMPHOCYTES (AUTO) 1.9 10^3/uL (0.5-4.7); ABSOLUTE MONOCYTES (AUTO) 0.5 10^3/uL (0.1-1.4); BASOPHILS % (AUTO) 1.2 % (0-2); EOSINOPHILS % (AUTO) 1.2 % (0-6); HEMOGLOBIN 14.1 g/dL (12.0-15.5); LYMPHOCYTES % (AUTO) 21.9 % (13-45); MEAN CORPUSCULAR HGB CONC 32.8 g/dL (32.0-36.0); MEAN CORPUSCULAR VOLUME 82 fl (80-97); PLATELET COUNT 276 10^3/uL (150-450); RED BLOOD COUNT 5.23 10^6/uL (3.72-5.28); RED CELL DISTRIBUTION WIDTH 14.7 % (11.5-14.0); SEGMENTED NEUTROPHILS % (AUTO) 69.7 % (42-78); TOTAL CELLS COUNTED % (AUTO) 100 %; WHITE BLOOD COUNT 8.6 10^3/uL (4.0-10.5)
[2019-02-06 11:42] LABS: APPEARANCE,URINE CLEAR; BILIRUBIN,URINE NEGATIVE (NEGATIVE); COLOR,URINE STRAW; GLUCOSE, URINE NEGATIVE (NEGATIVE); KETONES,URINE NEGATIVE (NEGATIVE); PROTEIN,URINE NEGATIVE (NEGATIVE); URINE SPECIFIC GRAVITY 1.009; UROBILINOGEN,URINE NEGATIVE mg/dL (<2.0)
[2019-02-06 11:57] LABS: ALBUMIN 4.3 g/dL (3.5-5.0); ALKALINE PHOSPHATASE 112 U/L (38-126); ANION GAP 12 (5-19); ASPARTATE AMINO TRANSFERASE 19 U/L (14-36); BILIRUBIN,DIRECT 0.1 mg/dL (0.0-0.4); BILIRUBIN,TOTAL 0.5 mg/dL (0.2-1.3); BLOOD UREA NITROGEN 15 mg/dL (7-20); CALCIUM 9.7 mg/dL (8.4-10.2); CARBON DIOXIDE 28 mmol/L (22-30); CHLORIDE 104 mmol/L (98-107); GLUCOSE 120 mg/dL (75-110); POTASSIUM 4.2 mmol/L (3.6-5.0); TOTAL PROTEIN 7.5 g/dL (6.3-8.2)
[2019-02-06] MEDS ORDERED: DICYCLOMINE HCL INJ 20 MG/2 ML AMPULE IM ONE (13:39)
--- NOTE | 2019-02-06 13:39 | RADIOLOGY REPORT (SQ) ---
EXAM DESCRIPTION: U/S ABDOMEN LIMITED W/O DOP COMPLETED DATE/TIME: 02/06/2019 1:16 pm REASON FOR STUDY: RUQ pain COMPARISON: None. TECHNIQUE: Dynamic and static grayscale images acquired of the abdomen and recorded on PACS. Additio nal selected color Doppler and spectral images recorded. LIMITATIONS: None. FINDINGS: PANCREAS: The head of the pancreas is of normal echogenicity. The body and tail are obsc ured by overlying bowel gas. LIVER: Fatty liver. The liver measures 15.2 cm in length, normal size. LIVER VASCULATURE: Normal directional flow of the main portal vein and hepatic veins. GALLBLADDER: No stones. The gallbladder wall measures 3.0 mm, upper limits of normal wall thickness. No pericholecystic fluid. ULTRASOUND-DETECTED MOTTA'S SIGN: Negative. INTRAHEPATIC DUCTS AND COMMON DUCT: CBD measures 4.0 mm in diameter, normal. The intrahepatic ducts normal caliber. No filling defects. INFERIOR VENA CAVA: Normal flow. AORTA: No aneurysm. RIGHT KIDNEY: The right kidney measures 11.4 cm in length, normal size. Normal echogenicity. No maritza id or suspicious masses. No hydronephrosis. No calcifications. PERITONEAL AND RIGHT PLEURAL SPACE: No ascites or effusions. OTHER: No other significant findings. IMPRESSION: 1. The body and tail of the pancreas are obscured by overlying bowel gas. 2. Fatty liver. TECHNICAL DOCUMENTATION: JOB ID: [id number]- All Rights Reserved Reading location - IP/workstation name: [email or web address]
--- NOTE | 2019-02-06 13:42 | ER Document Report ---
ED General - General Chief Complaint: Flank Pain Stated Complaint: DIZZINESS, RIGHT HIP PAIN Time Seen by Provider: 02/06/19 10:49 Primary Care Provider: JUSTEN HDZ DO [ASSOCIATE] - Follow up as needed Notes: 43-year-old female presents with right upper quadrant pain that is intermittent for past 5 days. Patient states it radiates into her right flank. Patient has associated nausea and diarrhea. Patient denies any vomiting, constipation, fever, chills. Patient does report some dysuria that started 2 days ago. Patient states she has a history of A. fib however has been A. fib free for 2 years. Patient states she was taking Tikosyn for A. fib but was taken off due to not having A. fib anymore. Pt has been having intermittent fluttering and dizziness for past week. Patient denies any chest pain and dyspnea. TRAVEL OUTSIDE OF THE [place] IN LAST 30 DAYS: No - Related Data Allergies/Adverse Reactions: aspirin [Aspirin] Allergy (Severe, Verified 08/05/18 07:32) throat closes codeine Allergy (Verified 08/05/18 07:32) doxycycline Allergy (Verified 08/05/18 07:32) hydrocodone Allergy (Verified 08/05/18 07:32) nitrofurantoin [From Macrobid] Allergy (Verified 08/05/18 07:32) oxycodone Allergy (Verified 08/05/18 07:32) meperidine HCl [From Demerol] Adverse Reaction (Intermediate, Verified 08/05/18 07:32) nausea, vomiting Penicillins Adverse Reaction (Mild, Verified 08/05/18 07:32) Hives Home Medications: Eliquis. Lipitor. Metoprolol. Ativan. Amitripiline. 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 - Social History Smoking Status: Never Smoker Frequency of alcohol use: None Drug Abuse: None Family History: Reviewed & Not Pertinent Patient has suicidal ideation: No Patient has homicidal ideation: No - Past Medical History Cardiac Medical History: Reports: Hx Atrial Fibrillation - Chronic, Hx Hypertension Denies: Hx Coronary Artery Disease, Hx Heart Attack Pulmonary Medical History: Denies: Hx Asthma, Hx Bronchitis, Hx COPD, Hx Pneumonia Neurological Medical History: Denies: Hx Cerebrovascular Accident, Hx Seizures Endocrine Medical History: Reports: Hx Diabetes Mellitus Type 2 - diet controlled Renal/ Medical History: Denies: Hx Peritoneal Dialysis Musculoskeletal Medical History: Reports Hx Arthritis - Bilateral knees Past Surgical History: Reports: Hx Cardiac Surgery - ablation x2, Hx Dilation an d Curettage, Hx Hysterectomy, Hx Oral Surgery - wisdom teeth, Hx Orthopedic Surgery - left elbow and wrist, Other - AV ablation. Denies: Hx Pacemaker - Immunizations Hx Diphtheria, Pertussis, Tetanus Vaccination: Yes Review of Systems - Review of Systems Notes: Constitutional: Negative for fever. HENT: Negative for sore throat. Eyes: Negative for visual changes. Cardiovascular: Negative for chest pain. Respiratory: Negative for shortness of breath. Gastrointestinal: Positive for abdominal pain, nausea, and diarrhea. Genitourinary: Positive for dysuria. Musculoskeletal: Negative for back pain. Skin: Negative for rash. Neurological: Negative for headaches, weakness or numbness. 10 point ROS negative except as marked above and in HPI. Physical Exam - Vital signs Vitals: Temp Pulse Resp BP Pulse Ox 98 F 107 H 18 127/68 H 97 02/06/19 10:45 02/06/19 10:45 02/06/19 10:45 02/06/19 10:45 02/06/19 10:45 - Notes Notes: GENERAL: Well-appearing, well-nourished and in no acute distress. HEAD: Atraumatic, normocephalic. EYES: Pupils equal round and reactive to light, extraocular movements intact, sclera anicteric, conjunctiva are normal. ENT: TMs normal, nares patent, oropharynx clear without exudates. Moist mucous membranes. NECK: Normal range of motion, supple without lymphadenopathy or JVD. LUNGS: Breath sounds clear to auscultation bilaterally and equal. No wheezes rales or rhonchi. HEART: Regular rate and rhythm without murmurs, rubs or gallops. ABDOMEN: Soft, tenderness to right upper quadrant. No guarding, no rebound. No masses appreciated. Mild right CVA tenderness. EXTREMITIES: Normal range of motion, no pitting or edema. No clubbing or cyanosis. NEUROLOGICAL: Cranial nerves II through XII grossly intact. Normal speech, normal gait. PSYCH: Normal mood, normal affect. SKIN: Warm, Dry, normal turgor, no rashes or lesions noted. Course - Re-evaluation Re-evalutation: 02/06/19 43-year-old female presents for right upper quadrant pain that radiates to right flank. Associated nausea and diarrhea. Abdomen soft, tenderness to right upper quadrant without rebound or guarding. Afebrile, non-tachycardic, non-hypoxic. Work-up was initiated out in triage. CBC, CMP, lipase is unremarkable. Patient states she was in A. fib on monitor and was concerned however denies any chest pain, shortness of breath, palpitations. Patient states she has been A. fib free for 2 years status post ablation and cardioversion. 02/06/19 13:58 RN informed that bentyl was given IV instead of IM. RN to monitor pt and report this. IV fluids given. 02/06/19 14:39 RN states pt's HR 140s upon exertion and will drop to 100 at rest. 02/06/19 15:[address] Garcia who recommended Eliquis, increasing metopolol to BID, and giving [address] Garcia states to give pt his cell number to call him for appointment either tomorrow or Wednesday. Dr. Garcia's cell number is [phone]. 02/06/19 15:[address] Garcia's recommendations. Pt is continuing to stay in 130-140 while talking. Will given 1 L of IVF and extra dose of metoprolol now and reassess. 02/06/19 16:50 RN imformed pt is 123 upon exertion. However pt is still feeling dizzy. Pt is concerned due to previous history of syncope secondary to afib. 02/06/19 17:01 Pt ambulated with HR 160. Pt continues to have shortness of breath. 02/06/19 17:[address] Garcia who states to have pt admitted for obs and placed on cardizem drip. He will consult. 02/06/19 17:[address] Healy who states pt will go to Dr. Zapata. Dr. Zapata requested calling back in 20 minutes. 02/06/19 17:[address] Zapata who accepted pt for admission, to tele bed. - Vital Signs Vital signs: Temp Pulse Resp BP Pulse Ox 98 F 107 H 20 140/90 H 95 02/06/19 10:45 02/06/19 10:45 02/06/19 16:16 02/06/19 16:16 02/06/19 16:16 - Laboratory Result Diagrams: 02/06/19 11:24 02/06/19 11:24 Laboratory results interpreted by me: 02/06/19 02/06/19 02/06/19 11:24 11:24 11:24 RDW 14.7 H Glucose 120 H Urine Blood SMALL H Discharge - Discharge Clinical Impression: RUQ pain, Nausea Afib Qualifiers: Atrial fibrillation type: unspecified persistent Qualified Code(s): I48.19 - Other persistent atrial fibrillation; I48.1 - Persistent atrial fibrillation Condition: Stable Disposition: ADMITTED OBSERVATION Admitting Provider: Jodi (Hospitalist) Unit Admitted: Telemetry Referrals: JUSTEN HDZ DO [ASSOCIATE] - Follow up as needed
[2019-02-06] MEDS ORDERED: METOPROLOL SUCCINATE 50 MG TAB.SR.24H PO ONE (15:10)
[2019-02-06] MEDS ORDERED: LIDOCAINE 2% VISCOUS SOLN 20 ML UDCUP PO ONE (15:31)
[2019-02-06] MEDS ORDERED: METOCLOPRAMIDE HCL ORAL SOLN 10 MG/10 ML UDCUP PO ONE (15:31)
[2019-02-06] MEDS ORDERED: MAG HYDROX/AL HYDROX/SIMETH SUSP 30 ML UDCUP PO ONE (15:31)
[2019-02-06] MEDS ORDERED: METOPROLOL TARTRATE PF/INJ 5 MG/5 ML SDV IV ONE (16:50)
[2019-02-06] MEDS ORDERED: DILTIAZEM HCL/D5W 125 MG/125 ML RTUINJ IV PRN (17:10)
[2019-02-06] MEDS ORDERED: METOPROLOL TARTRATE PF/INJ 5 MG/5 ML SDV IV PRN (17:51)
[2019-02-06] MEDS ORDERED: ONDANSETRON HCL INJ/PF 4 MG/2 ML SDV IV PRN (18:01)
[2019-02-06] MEDS ORDERED: TRAMADOL HCL 50 MG TABLET PO PRN (18:02)
--- NOTE | 2019-02-06 18:11 | PDOC H&P ---
History of Present Illness Admission Date/PCP: 02/06/19 17:33 JUSTEN PHOENIX PA-C Patient complains of: Abdominal pain and palpitations History of Present Illness: UMAIR MICHELE is a 43 year old female with a history of persistent A. fib (has had 2 ablations, last on 04/13/2018, cardioversion), hypertension, hyperlipidemia, asthma, who presented to the hospital with complaints of right- sided abdominal pain with radiation to her right hip. Patient states the pain feels like a cramping pain exacerbated by movement. Pain started after she helped lift up her grandmother. The ER patient was evaluated with ultrasound which was unrevealing. However in the ER she started to have palpitations. She was found to be in A. fib with RVR and given a dose of her metoprolol without much improvement. Subsequently, hospitalist service was called for admission. Patient denies any shortness of breath. Endorses mild lightheadedness. Denies any chest pain fever or chills. Past Medical History Cardiac Medical History: Reports: Atrial Fibrillation - Chronic, Hypertension Denies: Coronary Artery Disease, Myocardial Infarction Pulmonary Medical History: Reports: Asthma Denies: Bronchitis, Chronic Obstructive Pulmonary Disease (COPD), Pneumonia Neurological Medical History: Denies: Seizures Psychiatric Medical History: Reports: General Anxiety Disorder Past Surgical History Past Surgical History: Reports: Appendectomy, Hysterectomy, Orthopedic Surgery - left elbow and wrist, Other - AV ablation Denies: Pacemaker Social History Information Source: Patient Smoking Status: Never Smoker Frequency of Alcohol Use: None Hx Recreational Drug Use: No Drugs: None Hx Prescription Drug Abuse: No - Advance Directive Resuscitation Status: Full Code Family History Family History: CVA Parental Family History Reviewed: Yes Children Family History Reviewed: NA Sibling(s) Family History Reviewed.: Yes Medication/Allergy Home Medications: Albuterol Sulfate [Ventolin 0.083% Neb 2.5 mg/3 mL Ampul] 1 vial NEB Q4HP PRN 02/06/19 Amitriptyline HCl [Elavil 10 mg Tablet] 10 mg PO QHS 02/06/19 Atorvastatin Calcium [Lipitor 20 mg Tablet] 20 mg PO QHS 02/06/19 Bupropion HCl [Wellbutrin Xl 150 mg 24hr Tablet] 150 mg PO Q12 02/06/19 Epinephrine [Epipen] 0.3 mg IM ASDIR PRN 02/06/19 Esomeprazole Magnesium [Nexium] 20 mg PO DAILY 02/06/19 Estradiol [Estrace] 1 mg PO DAILY 02/06/19 Fluticasone Propionate [Flonase Nasal [place] 50 Mcg/[place] 16 gm] 1 spray NASL DAILY 02/06/19 Levocetirizine Dihydrochloride [Xyzal] 5 mg PO DAILY 02/06/19 Lorazepam [Ativan 0.5 mg Tablet] 0.5 mg PO BID 02/06/19 Metoprolol Succinate [Toprol Xl 50 mg Tab.sr] 50 mg PO DAILY 02/06/19 Montelukast Sodium [Singulair 10 mg Tablet] 10 mg PO QPM 02/06/19 Allergies/Adverse Reactions: aspirin [Aspirin] Allergy (Severe, Verified 08/05/18 07:32) throat closes codeine Allergy (Verified 08/05/18 07:32) doxycycline Allergy (Verified 08/05/18 07:32) hydrocodone Allergy (Verified 08/05/18 07:32) nitrofurantoin [From Macrobid] Allergy (Verified 08/05/18 07:32) oxycodone Allergy (Verified 08/05/18 07:32) meperidine HCl [From Demerol] Adverse Reaction (Intermediate, Verified 08/05/18 07:32) nausea, vomiting Penicillins Adverse Reaction (Mild, Verified 08/05/18 07:32) Hives Review of Systems Constitutional: ABSENT: chills, fatigue Eyes: ABSENT: visual disturbances Nose, Mouth, and Throat: ABSENT: headache(s), vertigo Cardiovascular: PRESENT: palpitations. ABSENT: chest pain Respiratory: ABSENT: cough, dyspnea Gastrointestinal: PRESENT: abdominal pain Genitourinary: ABSENT: dysuria Musculoskeletal: PRESENT: back pain Integumentary: ABSENT: diaphoresis Neurological: ABSENT: confusion Psychiatric: PRESENT: anxiety Allergic/Immunologic: PRESENT: seasonal rhinorrhea Physical Exam Vital Signs: Temp Pulse Resp BP Pulse Ox 98 F 107 H 18 137/87 H 96 02/06/19 10:45 02/06/19 10:45 02/06/19 17:36 02/06/19 17:36 02/06/19 17:36 Intake & Output 02/05/19 02/06/19 02/07/19 06:59 06:59 06:59 Intake Total 2000 Balance 2000 Weight 116.7 kg General appearance: PRESENT: no acute distress, cooperative Head exam: PRESENT: normocephalic Neck exam: ABSENT: JVD Respiratory exam: PRESENT: clear to auscultation williams Cardiovascular exam: PRESENT: diastolic murmur, irregular rhythm, +S1, +S2, tachycardia. ABSENT: RRR, systolic murmur GI/Abdominal exam: PRESENT: normal bowel sounds, soft, tenderness - Tenderness worsens when patient attempts to sit up from laying down position. ABSENT: diminished bowel sounds, distended, guarding, rebound, rigid Musculoskeletal exam: PRESENT: ambulatory Neurological exam: PRESENT: alert, awake, oriented to person, oriented to place, oriented to time, oriented to situation Psychiatric exam: ABSENT: agitated Results Laboratory Results: 02/06/19 11:24 02/06/19 11:24 02/06/19 02/06/19 02/06/19 11:24 11:24 11:24 WBC 8.6 RBC 5.23 Hgb 14.1 Hct 43.0 MCV 82 MCH 27.0 MCHC 32.8 RDW 14.7 H Plt Count 276 Seg Neutrophils % 69.7 Sodium 143.9 Potassium 4.2 Chloride 104 Carbon Dioxide 28 Anion Gap 12 BUN 15 Creatinine 0.78 Est GFR ( Amer) > 60 Glucose 120 H Calcium 9.7 Total Bilirubin 0.5 AST 19 Alkaline Phosphatase 112 Total Protein 7.5 Albumin 4.3 Lipase 73.0 Serum HCG, Qual NEGATIVE Urine Color Urine Appearance Urine pH Ur Specific [place] Urine Protein Urine Glucose (UA) Urine Ketones Urine Blood Urine RBC (Auto) 02/06/19 11:24 WBC RBC Hgb Hct MCV MCH MCHC RDW Plt Count Seg Neutrophils % Sodium Potassium Chloride Carbon Dioxide Anion Gap BUN Creatinine Est GFR ( Amer) Glucose Calcium Total Bilirubin AST Alkaline Phosphatase Total Protein Albumin Lipase Serum HCG, Qual Urine Color STRAW Urine Appearance CLEAR Urine pH 6.0 Ur Specific [place] 1.009 Urine Protein NEGATIVE Urine Glucose (UA) NEGATIVE Urine Ketones NEGATIVE Urine Blood SMALL H Urine RBC (Auto) 1 02/06/19 11:24 Troponin I < 0.012 Impressions: Abdomen Ultrasound 02/06/19 10:58 IMPRESSION: 1. The body and tail of the pancreas are obscured by overlying bowel gas. 2. Fatty liver. 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 Tylenol as needed Flexeril (2) Atrial fibrillation with rapid ventricular response Is this a current diagnosis for this admission?: Yes Plan: Likely triggered by pain and/or anxiety Patient has history of persistent atrial fibrillation. Continue Cardizem drip for now. Received 2L NS Bolus in ER I have increased patient's Toprol-XL dose from 50 to 75 mg daily. Lopressor 5 mg as needed. CHADSVASC score of 2 --> I will restart Eliquis which was stopped after her ablation earlier this year. (3) Anxiety disorder Qualifiers: Anxiety disorder type: generalized anxiety disorder Qualified Code(s): F41.1 - Generalized anxiety disorder Is this a current diagnosis for this admission?: Yes Plan: Stable. Continue antianxiety meds. (4) Asthma, mild intermittent Qualifiers: Asthma complication type: uncomplicated Qualified Code(s): J45.20 - Mild intermittent asthma, uncomplicated Is this a current diagnosis for this admission?: Yes Plan: Stable. Continue Montelukast -PRN nebs - Time Time Spent with patient: 35 or more minutes
[2019-02-06] MEDS ORDERED: ALBUTEROL SULFATE 0.083% NEB 2.5 MG/3 ML AMPUL NEB PRN (18:13)
[2019-02-06] MEDS: NORMAL SALINE 1000 ML 1,000 ML IV PRN (19:43)
[2019-02-06] MEDS: ACETAMINOPHEN 325 MG TABLET PO PRN (21:35)
[2019-02-06] MEDS: CYCLOBENZAPRINE HCL 10 MG TABLET PO PRN (21:36)
[2019-02-06] MEDS ORDERED: AMITRIPTYLINE HCL 10 MG TABLET PO SCH (22:00)
[2019-02-06] MEDS ORDERED: METOPROLOL SUCCINATE 25 MG TAB.SR.24H PO SCH (22:00)
[2019-02-06] MEDS ORDERED: ATORVASTATIN CALCIUM 20 MG TABLET PO SCH (22:00)
[2019-02-06] MEDS ORDERED: (PENDING PHARMACY ID) (Bupropion Hcl [Wellbutrin Xl 150 Mg 24hr Tablet] 150 MG) PO SCH (22:00)
[2019-02-06] MEDS: BUPROPION HCL 100 MG TABLET PO SCH (23:54)
--- NOTE | 2019-02-06 23:54 | EKG REPORT ---
SEVERITY:- ABNORMAL ECG - ATRIAL FIBRILLATION, V-RATE 76-109 : Confirmed by: Lise Carl 06-Feb-2019 23:53:15
[2019-02-07] MEDS ORDERED: LORAZEPAM 0.5 MG TABLET PO ONE (00:15)
[2019-02-07] MEDS ORDERED: LORAZEPAM 1 MG TABLET ONE (02:40)
[2019-02-07] MEDS: NORMAL SALINE 1000 ML 1,000 ML IV PRN (06:32)
[2019-02-07] MEDS: BUPROPION HCL 100 MG TABLET PO SCH ×2 (06:40→13:43)
[2019-02-07] MEDS: ACETAMINOPHEN 325 MG TABLET PO PRN (09:49)
[2019-02-07] MEDS ORDERED: METOPROLOL SUCCINATE 25 MG TAB.SR.24H PO SCH (10:00)
[2019-02-07] MEDS ORDERED: LIDOCAINE 5% (700 MG) TRANSDERMAL ADH..PATCH TP SCH (10:00)
[2019-02-07] MEDS ORDERED: FLUTICASONE NASAL SPRAY 50 MCG/SPRY 120 SPRAY/16 GM NASL SCH (10:00)
[2019-02-07] MEDS ORDERED: LORAZEPAM 0.5 MG TABLET PO SCH (10:00)
[2019-02-07] MEDS: CYCLOBENZAPRINE HCL 10 MG TABLET PO PRN (11:33)
--- NOTE | 2019-02-07 15:30 | PDOC DISCHARGE SUMMARY ---
Impression - Admit/DC Date/PCP Admission Date/Primary Care Provider: 02/06/19 17:45 JUSTEN PHOENIX PA-C Discharge Date: 02/07/19 - Discharge Diagnosis (1) Abdominal muscle pain Is this a current diagnosis for this admission?: Yes (2) Atrial fibrillation with rapid ventricular response Is this a current diagnosis for this admission?: Yes (3) Anxiety disorder Is this a current diagnosis for this admission?: Yes (4) Asthma, mild intermittent Is this a current diagnosis for this admission?: Yes - Assessment Summary: The patient's heart rate was greatly improved with diltiazem by IV and increasing her metoprolol. We will add oral diltiazem to her discharge regimen. Because she is unsure when the fibrillation started and she is currently not on anticoagulation she is not a candidate for cardioversion. - Additional Information Resuscitation Status: Full Code Discharge Diet: Cardiac Discharge Activity: Activity As Tolerated Referrals: SABI ALCANTAR MD [ACTIVE STAFF] - KATHY MARIN JR, DO [ACTIVE PROVISIONAL STAFF] - Prescriptions: Diltiazem HCl [Diltiazem 24Hr ER (Cd)] 120 mg PO DAILY 14 Days #14 cap.er.24h Apixaban [Eliquis 5 mg Tablet] 5 mg PO BID 14 Days #28 tablet Lidocaine [Lidoderm 5% (700 mg) Transdermal Patch] 1 patch TP DAILY 14 Days #14 adh..patch Home Medications: Albuterol Sulfate [Ventolin 0.083% Neb 2.5 mg/3 mL Ampul] 1 vial NEB Q4HP PRN 02/06/19 Amitriptyline HCl [Elavil 10 mg Tablet] 10 mg PO QHS 02/06/19 Atorvastatin Calcium [Lipitor 20 mg Tablet] 20 mg PO QHS 02/06/19 Bupropion HCl [Wellbutrin Xl 150 mg 24hr Tablet] 150 mg PO Q12 02/06/19 Epinephrine [Epipen] 0.3 mg IM ASDIR PRN 02/06/19 Esomeprazole Magnesium [Nexium] 20 mg PO DAILY 02/06/19 Estradiol [Estrace] 1 mg PO DAILY 02/06/19 Fluticasone Propionate [Flonase Nasal [place] 50 Mcg/[place] 16 gm] 1 spray NASL DAILY 02/06/19 Levocetirizine Dihydrochloride [Xyzal] 5 mg PO DAILY 02/06/19 Lorazepam [Ativan 0.5 mg Tablet] 0.5 mg PO BID 02/06/19 Montelukast Sodium [Singulair 10 mg Tablet] 10 mg PO QPM 02/06/19 Acetaminophen [Tylenol 325 mg Tablet] 975 mg PO Q4HP PRN tablet 02/07/19 Apixaban [Eliquis 5 mg Tablet] 5 mg PO BID 14 Days #28 tablet 02/07/19 Diltiazem HCl [Diltiazem 24Hr ER (Cd)] 120 mg PO DAILY 14 Days #14 cap.er.24h 02/07/19 Lidocaine [Lidoderm 5% (700 mg) Transdermal Patch] 1 patch TP DAILY 14 Days #14 adh..patch 02/07/19 Metoprolol Succinate [Toprol Xl 25 mg Tab.sr] 75 mg PO DAILY tab.sr.24h 02/07/19 History of Present Illiness History of Present Illness: UMAIR MICHELE is a 43 year old female with a history of persistent atrial fibrillation. She is already had 2 ablations and a cardioversion. She has hypertension, hyperlipidemia and asthma. Her presentation to the emergency department was for right lower quadrant pain that in fact is more likely from her hip. The pain is exacerbated by movement and started after she helped to lift her grandmother. Her evaluation accidentally discovered the atrial fibrillation. She has been on metoprolol at home and her Eliquis was disco ntinued several weeks ago. She was referred to the hospital service for admission. Hospital Course Hospital Course: The patient had an unremarkable hospital course. With an increased dose of her metoprolol and the use of intravenous diltiazem her heart rate slowed to the normal range. She still has a right hip/abdominal pain. She is otherwise stable. Physical Exam Vital Signs: Temp Pulse Resp BP Pulse Ox 97.8 F 96 18 113/73 99 02/07/19 11:48 02/07/19 14:00 02/07/19 11:48 02/07/19 11:48 02/07/19 11:48 Intake & Output 02/06/19 02/07/19 02/08/19 06:59 06:59 06:59 Intake Total 3540 1505 Output Total 1 Balance 3539 1505 Weight 118.2 kg General appearance: PRESENT: no acute distress, cooperative, morbidly obese, well-developed Head exam: PRESENT: atraumatic, normocephalic Respiratory exam: PRESENT: clear to auscultation williams, symmetrical, unlabored. ABSENT: rales, rhonchi, tachypnea, wheezes Cardiovascular exam: PRESENT: irregular rhythm GI/Abdominal exam: PRESENT: normal bowel sounds, soft. ABSENT: distended, tenderness Neurological exam: PRESENT: alert, awake, oriented to person, oriented to place, oriented to time, oriented to situation Psychiatric exam: PRESENT: appropriate affect. ABSENT: agitated, anxious Results Laboratory Results: WBC 8.6 10^3/uL (4.0-10.5) 02/06/19 11:24 RBC 5.23 10^6/uL (3.72-5.28) 02/06/19 11:24 Hgb 14.1 g/dL (12.0-15.5) 02/06/19 11:24 Hct 43.0 % (36.0-47.0) 02/06/19 11:24 MCV 82 fl (80-97) 02/06/19 11:24 MCH 27.0 pg (27.0-33.4) 02/06/19 11:24 MCHC 32.8 g/dL (32.0-36.0) 02/06/19 11:24 RDW 14.7 % (11.5-14.0) H 02/06/19 11:24 Plt Count 276 10^3/uL (150-450) 02/06/19 11:24 Lymph % (Auto) 21.9 % (13-45) 02/06/19 11:24 [place] % (Auto) 6.0 % (3-13) 02/06/19 11:24 Eos % (Auto) 1.2 % (0-6) 02/06/19 11:24 Baso % (Auto) 1.2 % (0-2) 02/06/19 11:24 Absolute Neuts (auto) 6.0 10^3/uL (1.7-8.2) 02/06/19 11:24 Absolute Lymphs (auto) 1.9 10^3/uL (0.5-4.7) 02/06/19 11:24 Absolute Monos (auto) 0.5 10^3/uL (0.1-1.4) 02/06/19 11:24 Absolute Eos (auto) 0.1 10^3/uL (0.0-0.6) 02/06/19 11:24 Absolute Basos (auto) 0.1 10^3/uL (0.0-0.2) 02/06/19 11:24 Seg Neutrophils % 69.7 % (42-78) 02/06/19 11:24 Sodium 143.9 mmol/L (137-145) 02/06/19 11:24 Potassium 4.2 mmol/L (3.6-5.0) 02/06/19 11:24 Chloride 104 mmol/L (98-107) 02/06/19 11:24 Carbon Dioxide 28 mmol/L (22-30) 02/06/19 11:24 Anion Gap 12 (5-19) 02/06/19 11:24 BUN 15 mg/dL (7-20) 02/06/19 11:24 Creatinine 0.78 mg/dL (0.52-1.25) 02/06/19 11:24 Est GFR ( Amer) > 60 (>60) 02/06/19 11:24 Est GFR (MDRD) Non-Af > 60 (>60) 02/06/19 11:24 Glucose 120 mg/dL (75-110) H 02/06/19 11:24 Hemoglobin A1c % 5.7 % (4.7-6.0) 02/06/19 11:24 Calcium 9.7 mg/dL (8.4-10.2) 02/06/19 11:24 Total Bilirubin 0.5 mg/dL (0.2-1.3) 02/06/19 11:24 Direct Bilirubin 0.1 mg/dL (0.0-0.4) 02/06/19 11:24 Neonat Total Bilirubin Not Reportable 02/06/19 11:24 Neonat Direct Bilirubin Not Reportable 02/06/19 11:24 Neonat Indirect Bili Not Reportable 02/06/19 11:24 AST 19 U/L (14-36) 02/06/19 11:24 ALT 16 U/L (<35) 02/06/19 11:24 Alkaline Phosphatase 112 U/L (38-126) 02/06/19 11:24 Troponin I < 0.012 ng/mL 02/06/19 11:24 Total Protein 7.5 g/dL (6.3-8.2) 02/06/19 11:24 Albumin 4.3 g/dL (3.5-5.0) 02/06/19 11:24 Lipase 73.0 U/L (23-300) 02/06/19 11:24 Serum HCG, Qual NEGATIVE (NEGATIVE) 02/06/19 11:24 Urine Color STRAW 02/06/19 11:24 Urine Appearance CLEAR 02/06/19 11:24 Urine pH 6.0 (5.0-9.0) 02/06/19 11:24 Ur Specific [place] 1.009 02/06/19 11:24 Urine Protein NEGATIVE mg/dL (NEGATIVE) 02/06/19 11:24 Urine Glucose (UA) NEGATIVE mg/dL (NEGATIVE) 02/06/19 11:24 Urine Ketones NEGATIVE mg/dL (NEGATIVE) 02/06/19 11:24 Urine Blood SMALL (NEGATIVE) H 02/06/19 11:24 Urine Nitrite (Reflex) NEGATIVE (NEGATIVE) 02/06/19 11:24 Urine Bilirubin NEGATIVE (NEGATIVE) 02/06/19 11:24 Urine Urobilinogen NEGATIVE mg/dL (<2.0) 02/06/19 11:24 Leukocyte Esterase Rfl NEGATIVE (NEGATIVE) 02/06/19 11:24 Urine RBC (Auto) 1 /HPF 02/06/19 11:24 Urine Bacteria (Auto) 2+ /HPF 02/06/19 11:24 Urine WBC (Reflex) 1 /HPF 02/06/19 11:24 Squamous Epi Cells Auto 7 /HPF 02/06/19 11:24 Urine Mucus (Auto) RARE /LPF 02/06/19 11:24 Urine Ascorbic Acid NEGATIVE (NEGATIVE) 02/06/19 11:24 02/06/19 11:24 Troponin I < 0.012 Impressions: Abdomen Ultrasound 02/06/19 10:58 IMPRESSION: 1. The body and tail of the pancreas are obscured by overlying bowel gas. 2. Fatty liver. Plan Health Concerns: Persistent atrial fibrillation Plan of Treatment: Increase metoprolol, add diltiazem and resume anticoagulation. Follow-up with orthopedic surgery for the right hip pain. Goals: Determination of the best plan for her atrial fibrillation. Further evaluate her right hip pain. Time Spent: Greater than 30 Minutes Stroke Is this a Stroke Patient?: No Acute Heart Failure - Is this a Heart Failure Patient?: No
[2019-02-07 15:32] VITALS: BP 100/62
[2019-02-07] MEDS ORDERED: MONTELUKAST SODIUM 10 MG TABLET PO SCH (18:00)
[2019-02-07] MEDS ORDERED: PHARMACY COMMUNICATION ORDER MC SCH (22:00)
== END 2019-02-07 16:17 | disposition home or self-care (01) ==
LOC: ER 10:40 → EH 17:33 → OBSVTOIN 17:45 → INTOOBSV 17:45 → 3W 22:14
PROVIDERS: ADMIT Internal Medicine; ATTEND Internal Medicine
DX: M79.18 Myalgia, other site (principal); I48.19 Other persistent atrial fibrillation; F41.1 Generalized anxiety disorder; J45.20 Mild intermittent asthma, uncomplicated; E78.5 Hyperlipidemia, unspecified; I10 Essential (primary) hypertension; R10.31 Right lower quadrant pain; M25.551 Pain in right hip; E66.01 Morbid (severe) obesity due to excess calories; R30.0 Dysuria; R11.0 Nausea; R19.7 Diarrhea, unspecified; E11.9 Type 2 diabetes mellitus without complications; Z79.899 Other long term (current) drug therapy; Z98.890 Other specified postprocedural states; Z90.49 Acquired absence of other specified parts of digestive tract; Z90.710 Acquired absence of both cervix and uterus
CPT/HCPCS: 93005; 99284; 96372; 96360; 96361; 36415; 83690; 84703; 85025; 80053; 81001; 84484; 83036; 76705; 93010; G0378 ×3; J3490 ×3; J0500; S0119; J7030 ×2

== ENCOUNTER 2019-02-17 14:23 | Emergency (ER) | payer OTHER ==
--- NOTE | 2019-02-17 14:53 | ER Document Report ---
ED Neck/Back Problem - General Chief Complaint: Back Pain Stated Complaint: BACK PAIN Time Seen by Provider: 02/17/19 14:45 Primary Care Provider: JUSTEN PHOENIX PA-C [Primary Care Provider] - 02/20/19 Mode of Arrival: Ambulatory Information source: Patient Notes: 43-year-old female presented to ED for complaint of bilateral lower back pain. She states she had right hip pain several weeks ago when she came and ended up having some problems with her heart and was admitted for that they did not follow-up with her lower back and hip pain. She states the back and hip pain are back and worse and now it is across both sides of her lower back. She states she has had back pain before but not like this and not this intense. She states it does not radiate down either leg. Denies loss of control of bowel bladder, denies saddle anesthesia, she states she has no loss of sensation or control to the lower extremities but when she walks it does make the pain in her back worse. TRAVEL OUTSIDE OF THE [place] IN LAST 30 DAYS: No - HPI Patient complains to provider of: Pain, Lower back Onset: Other - 2 weeks Onset: Gradual Timing: Still present Quality of pain: Sharp Severity: Moderate Pain Level: 3 Recent injury: No Associated symptoms: Like prior neck/back pain, Lower back pain. denies: Constipation, Fever, Incontinence, Motor loss, Numbness/tingling, Radiation to arm, Radiation to chest, Radiation to leg, Sensory loss, Sweaty, Unable to urinate, Upper back pain Exacerbated by: Other Relieved by: Nothing - Walking Similar symptoms previously: Yes Recently seen / treated by doctor: Yes - Related Data Allergies/Adverse Reactions: aspirin [Aspirin] Allergy (Severe, Verified 02/17/19 14:57) throat closes pumpkin Allergy (Severe, Verified 02/17/19 14:57) Anaphylaxis codeine Allergy (Verified 02/17/19 14:57) doxycycline Allergy (Verified 02/17/19 14:57) hydrocodone Allergy (Verified 02/17/19 14:57) nitrofurantoin [From Macrobid] Allergy (Verified 02/17/19 14:57) oxycodone Allergy (Verified 02/17/19 14:57) meperidine HCl [From Demerol] Adverse Reaction (Intermediate, Verified 02/17/19 14:57) nausea, vomiting Penicillins Adverse Reaction (Mild, Verified 02/17/19 14:57) Hives Past Medical History - General Information source: Patient - Social History Smoking Status: Never Smoker Frequency of alcohol use: None Drug Abuse: None Lives with: Family Family History: CVA Patient has suicidal ideation: No Patient has homicidal ideation: No - Past Medical History Cardiac Medical History: Reports: Hx Atrial Fibrillation - Chronic, Hx Hypertension Pulmonary Medical History: Reports: Hx Asthma EENT Medical History: Reports: None Neurological Medical History: Reports: None Endocrine Medical History: Reports: Hx Diabetes Mellitus Type 2 - diet controlled Renal/ Medical History: Reports: None Malignancy Medical History: Reports: None GI Medical History: Reports: None Musculoskeletal Medical History: Reports Hx Arthritis - Bilateral knees, Reports Hx Musculoskeletal Deformity, Reports Hx Musculoskeletal Trauma Skin Medical History: Reports None Psychiatric Medical History: Reports: Hx Anxiety Traumatic Medical History: Reports: None Infectious Medical History: Reports: None Past Surgical History: Reports: Hx Appendectomy, Hx Cardiac Surgery - ablation x2, Hx Dilation and Curettage, Hx Hysterectomy, Hx Oral Surgery - wisdom teeth, Hx Orthopedic Surgery - left elbow and wrist back surgery, Other - AV ablation. Denies: Hx Pacemaker - Immunizations Hx Diphtheria, Pertussis, Tetanus Vaccination: Yes Review of Systems - Review of Systems Constitutional: No symptoms reported EENT: No symptoms reported Cardiovascular: No symptoms reported Respiratory: No symptoms reported Gastrointestinal: No symptoms reported Genitourinary: No symptoms reported Female Genitourinary: No symptoms reported Musculoskeletal: Back pain, Muscle pain, Muscle stiffness Skin: No symptoms reported Hematologic/Lymphatic: No symptoms reported Neurological/Psychological: No symptoms reported -: Yes All other systems reviewed and negative Physical Exam - Vital signs Vitals: Temp Pulse Resp BP Pulse Ox 97.6 F 77 18 127/73 H 98 02/17/19 14:28 02/17/19 14:28 02/17/19 14:28 02/17/19 14:28 02/17/19 14:28 Interpretation: Normal - General General appearance: Appears well, Alert - HEENT Head: Normocephalic, Atraumatic Eyes: Normal Pupils: PERRL - Respiratory Respiratory status: No respiratory distress Chest status: Nontender Breath sounds: Normal Chest palpation: Normal - Cardiovascular Rhythm: Regular Heart sounds: Normal auscultation Murmur: No - Abdominal Inspection: Normal Distension: No distension Bowel sounds: Normal Tenderness: Nontender Organomegaly: No organomegaly - Back Back: Normal, Tender. No: Deformity/step-off, CVA tenderness, Vertebra tenderness, Scars, Scoliosis, Wounds - Extremities General upper extremity: Normal inspection, Nontender, Normal color, Normal ROM, Normal temperature General lower extremity: Normal inspection, Nontender, Normal color, Normal ROM, Normal temperature, Normal weight bearing. No: Lucy's sign - Neurological Neuro grossly intact: Yes Cognition: Normal Orientation: AAOx4 Ken Coma Scale Eye Opening: Spontaneous Ken Coma Scale Verbal: Oriented Cherry Coma Scale Motor: Obeys Commands Cherry Coma Scale Total: 15 Speech: Normal Motor strength normal: LUE, RUE, LLE, RLE Sensory: Normal - Psychological Associated symptoms: Normal affect, Normal mood - Skin Skin Temperature: Warm Skin Moisture: Dry Skin Color: Normal Course - Re-evaluation Re-evalutation: 02/17/19 21:22 After performing a Medical Screening Examination, I estimate there is LOW risk for EXPANDING OR RUPTURED ABDOMINAL AORTIC ANEURYSM, CAUDA EQUINA SYNDROME, EPIDURAL MASS LESION, or HERNIATED DISK CAUSING SEVERE SPINAL STENOSIS, thus I consider the discharge disposition reasonable. I have reevaluated this patient multiple times and no significant life threatening changes are noted. The patient and I have discussed the diagnosis and risks, and we agree with discharging home and close follow-up. We also discussed returning to the Emergency Department immediately if new or worsening symptoms occur with the understanding that symptoms and presentations can change. We have discussed the symptoms which are most concerning (e.g., saddle anesthesia, urinary or bowel incontinence or retention, changing or worsening pain) that necessitate immediate return. - Vital Signs Vital signs: Temp Pulse Resp BP Pulse Ox 98.7 F 86 18 124/79 98 02/17/19 17:01 02/17/19 17:01 02/17/19 17:01 02/17/19 17:01 02/17/19 17:01 - Laboratory Laboratory results interpreted by me: 02/17/19 14:57 Urine Blood SMALL H - Diagnostic Test Radiology reviewed: Image reviewed, Reports reviewed Discharge - Discharge Clinical Impression: Low back pain Qualifiers: Chronicity: unspecified Back pain laterality: bilateral Sciatica presence: without sciatica Qualified Code(s): M54.5 - Low back pain Condition: Stable Disposition: HOME, SELF-CARE Additional Instructions: LOW BACK PAIN: Three out of every four people will have an episode of disabling back pain during their lifetime. Most commonly the pain is due to straining of the muscles and ligaments in the low back. Usual treatment includes: (1) Rest on a firm surface. Avoid lying on your stomach. (2) Ice pack the painful area. After a few days, gentle heat may be used intermittently to relax the area, or ice packs can be continued. (3) Medication may be needed -- muscle relaxers and antiinflammatory medicines are commonly used. (4) As the back improves, exercises are prescribed to strengthen the back and abdominal muscles. Your doctor will advise you on the proper care for your back at each stage in your recovery. You may be better in a few days -- or healing may take several weeks. If new symptoms of a "herniated disc" (radiation of pain, numbness, or tingling down the back of the leg or weakness in the leg) occur, you should be re-examined. Further testing may be necessary. to cause constipation. If possible, drink plenty of fluids and eat a diet high in fiber and fruits. CONSTIPATION: Constipation is a common problem. It is especially likely as you get old er. Constipation is a common cause of abdominal pain, but sometimes causes no symptoms at all. Causes of constipation include certain medications, dehydration, diets, inactivity, and low-fiber intake. Rarely, it can be a symptom of underlying disease. The physician has evaluated you for this. Avoid constipation by eating a diet high in fiber, fruits, and vegetables. Drink plenty of liquids. Get regular exercise. If possible, avoid constipating medicines like narcotic pain medication. Some vitamin tablets can cause constipation. Stool softeners may be needed for difficult cases. An excellent stool softener is Konsyl which is available at [employer], and [employer] drug store. Just add a teaspoon to a glass of pineapple or orange juice daily or twice a day if needed. Laxatives are useful for occasional constipation. You should use them only when necessary. Too-frequent use can make your bowels dependent on them. Some over the counter laxatives available without prescription are: MiraLAX 1 capful in a cup of juice coffee or something that you drink twice a day for the next 3 weeks. ICE PACKS: Apply ice packs frequently against the painful area. Many different schedules are recommended, such as "20 minutes on, 20 minutes off" or "one hour ice, two hours rest." If you need to work, you may need to go longer between ice treatments. You should plan to have the area ice packed AT LEAST one fourth of the time. The ice should be applied over the wrap, tape, or splint, or over a layer of cloth -- not directly against the skin. Some ice bags have a built-in cloth and can be put directly on the skin. WARM PACKS: After approximately two days, apply gentle heat (such as a heating pad or hot water bottle) for about 20 to 30 minutes about every two hours -- at least four times daily. Warmth and elevation will help you make a more rapid recovery, and will ease the pain considerably. Do not use HOT heat, and never apply heat for longer than 30 minutes. The continuous heat can invisibly damage skin and muscles -- even when no burn is seen on the surface. Damaged muscles can make you MORE sore. Stretching Exercises for the Back The physician has recommended that you begin stretching exercises for your back. These are often used even while the back is painful. However, you should notify the physician if the activities seem to increase your pain. PELVIC TILT: Lie flat on your back with knees bent. Tighten your stomach and buttock muscles so it flattens your lower back against the floor. Hold 10 seconds. Repeat 10 times, twice daily. KNEE RAISE: Lying on the back with knees bent, raise one knee to your chest, then the other. Hold both knees against the chest 10 seconds, then lower one knee at a time. Repeat 10 times, twice daily. PARTIAL TRUNK RAISE: Lie face down, arms at your sides. Keeping your waist on the floor, use your arms raise your chest up. Support yourself on your elbows for 30 seconds. Repeat twice daily, increasing the time to two minutes as you recover. FOLLOW-UP CARE: If you have been referred to a physician for follow-up care, call the physicians office for an appointment as you were instructed or within the next two days. If you experience worsening or a significant change in your symptoms, notify the physician immediately or return to the Emergency Department at any time for re-evaluation. Forms: Elevated Blood Pressure Referrals: JUSTEN PHOENIX PA-C [Primary Care Provider] - 02/20/19
[2019-02-17 15:24] LABS: APPEARANCE,URINE CLEAR; BILIRUBIN,URINE NEGATIVE (NEGATIVE); COLOR,URINE YELLOW; GLUCOSE, URINE NEGATIVE (NEGATIVE); KETONES,URINE NEGATIVE (NEGATIVE); PROTEIN,URINE NEGATIVE (NEGATIVE); URINE SPECIFIC GRAVITY 1.015; UROBILINOGEN,URINE NEGATIVE mg/dL (<2.0)
--- NOTE | 2019-02-17 16:24 | RADIOLOGY REPORT (SQ) ---
EXAM DESCRIPTION: L SPINE WHOLE COMPLETED DATE/TIME: 02/17/2019 3:51 pm REASON FOR STUDY: Low back pain COMPARISON: None. NUMBER OF VIEWS: Five views including obliques. TECHNIQUE: AP, lateral, oblique, and sacral radiographic images acquired of the lumbar spine. LIMITATIONS: None. FINDINGS: MINERALIZATION: Normal. SEGMENTATION: Normal. No transitional anatomy. ALIGNMENT: Normal. VERTEBRAE: Maintained height. No fracture or worrisome bone lesion. DISCS: Preserved height. No significant osteophytes or end plate irregularity. POSTERIOR ELEMENTS: Pedicles and facets are intact. No pars defect or posterior arch defects. HARDWARE: None in the spine. PARASPINAL SOFT TISSUES: Normal. PELVIS: Intact as visualized. No fractures or worrisome bone lesions. SI joints intact. OTHER: No other significant finding. IMPRESSION: NORMAL 5 VIEW LUMBAR SPINE. TECHNICAL DOCUMENTATION: JOB ID: [id number] [employer]- All Rights Reserved Reading location - IP/workstation name: [email or web address]
[2019-02-17 16:51] VITALS: BP 124/79
== END 2019-02-17 17:08 | disposition home or self-care (01) ==
LOC: ER 14:23
DX: M54.5 Low back pain (principal); E11.9 Type 2 diabetes mellitus without complications; I48.91 Unspecified atrial fibrillation; Z88.6 Allergy status to analgesic agent; Z88.0 Allergy status to penicillin; Z90.710 Acquired absence of both cervix and uterus
CPT/HCPCS: 72110; 81001; 99283

== ENCOUNTER 2020-02-23 07:36 | Day surgery (SDC) | payer OTHER ==
[~2020-02-23 07:36] MED LIST: PROPOFOL INJ 200 MG/20 ML VIAL IV ONE
[2020-02-23 12:08] VITALS: BP 121/79
--- NOTE | 2020-02-23 12:51 | Operative Report ---
Operative Report DATE OF SURGERY: 02/23/20 Operative Report: The risk, benefits and alternatives of the procedure including the risk of bleeding, perforation requiring surgery have been explained to the patient in detail and informed consent has been obtained. Patient is taken back to the endoscopy suite and placed in left lateral, decubital position. Timeout was called. Propofol medication is administered. Rectal examination is done which did not reveal any masses, tears or fissures. An Olympus videoscope was introduced into the patient's rectum. Scope was then carefully advanced all the way to the cecum. Cecum was identified by the usual anatomical landmarks of the ileocecal valve as well as the appendiceal office. Photodocumentation is obtained. Scope was then sequentially pulled back via the various segments of the colon including the ascending colon, hepatic flexure, transverse colon, splenic flexure, descending colon and finally into the rectosigmoid portions of the colon. Retroflexion maneuver is performed. PREOPERATIVE DIAGNOSIS: Rectal bleeding POSTOPERATIVE DIAGNOSIS: Mild inflammation noted in the ascending colon status post biopsy. Internal hemorrhoids OPERATION: Colonoscopy with biopsy SURGEON: LYNETTE CALLAHAN ANESTHESIA: LMAC TISSUE REMOVED OR ALTERED: As noted above. COMPLICATIONS: None. ESTIMATED BLOOD LOSS: None. INTRAOPERATIVE FINDINGS: As noted above. PROCEDURE: Patient tolerated the procedure well. No immediate postprocedure complications are noted. Patient is discharged in good condition. Discharge date 02/23/2020. Discharge diet: Regular. Discharge activity: Regular. 2 to 3-week follow-up to discuss findings. Patient is instructed call the office or proceed to the emergency room should there be any further problems or questions. Wait on the pathology.
== END 2020-02-23 10:48 | disposition home or self-care (01) ==
LOC: END 07:36
PROVIDERS: ATTEND Internal Medicine Gastroenterology
DX: K52.9 Noninfective gastroenteritis and colitis, unspecified (principal); K64.8 Other hemorrhoids; K59.09 Other constipation; I10 Essential (primary) hypertension; I48.91 Unspecified atrial fibrillation; Z79.899 Other long term (current) drug therapy; Z80.0 Family history of malignant neoplasm of digestive organs; E66.9 Obesity, unspecified; F41.9 Anxiety disorder, unspecified; K21.9 Gastro-esophageal reflux disease without esophagitis; Z86.010 Personal history of colon polyps; Z20.828 Contact with and (suspected) exposure to other viral communicable diseases; Z68.41 Body mass index [BMI] 40.0-44.9, adult
CPT/HCPCS: 45380; 88305 ×2; 00811; J2704; 811